=== PATIENT | female | born 1960 | race Caucasian/White ===

== ENCOUNTER 2022-05-22 20:14 | Emergency (ER) | payer OTHER, SELFPAY ==
--- NOTE | ~2022-05-22 | XR_ITS ---
EXAMINATION: XR CHEST CLINICAL INFORMATION: Recent Covid COMPARISON: None TECHNIQUE: Frontal view of the chest was obtained. FINDINGS: Normal appearance of the cardiomediastinal structures. No effusions or pneumothoraces. No focal pulmonary consolidation is identified. A normal pattern of pulmonary vasculature is visualized. Making allowances for overlying rib opacities and possible costochondral calcifications, no definitive areas of groundglass opacity or consolidation noted within the lungs. No displaced rib fractures visualized. XR/XR chest 1V IMPRESSION: *No acute cardiopulmonary abnormalities identified. If clinical concern is present regarding active Covid pneumonia, consider further evaluation with short-term follow-up radiographs or CT of the thorax.
[2022-05-22 20:33] VITALS: BP 162/84; BP 164/91; PULSE 72; PULSE 80; RESP 16; O2SAT 97; O2SAT 98; BMI 22.9
--- NOTE | 2022-05-22 20:39 | ECG_ITS ---
Test Reason : CHEST PAIN Blood Pressure : / mmHG Vent. Rate : 071 BPM Atrial Rate : 071 BPM P-R Int : 158 ms QRS Dur : 100 ms QT Int : 412 ms P-R-T Axes : 060 041 024 degrees QTc Int : 447 ms Normal sinus rhythm RSR' or QR pattern in V1 suggests right ventricular conduction delay ST & T wave abnormality, consider anterior ischemia Abnormal ECG No previous ECGs available Referred By: Edmund Gant Electronically Signed By:ERICA HAND MD
--- NOTE | 2022-05-22 20:42 | ED_ITS ---
HPI - Chest Pain General Chief Complaint: Chest Pain Stated Complaint: chest pain v tack Time Seen by Provider: 05/22/22 20:34 Source: patient History of Present Illness HPI narrative: This is a 62-year-old female who smokes a pack of cigarettes per day, who had C OVID about a week ago head the patient did have some cough from that time as well as fever. She has had some persistent cough and recently was put on prednisone and a Z-Arnaud. Today the patient had some spasms in her lower back, as well as pain in her chest, nonradiating. The chest pain is gone now. She denies any usual shortness of breath, nausea, sweats. She denies any history of coronary artery disease. She denies exertional chest pain. Denies any pain or swelling in her legs. She denies abdominal pain. Patient was brought in by ambulance EMS stated they thought they saw a brief run of V-tach however they did not capture strip and there is no objective evidence of this. The patient later noted that the pain began around 18:30 and lasted only about 5 minutes but came and went over course of about 45 minutes. Related Data Allergies Allergy/AdvReac Type Severity Reaction Status Date / Time Unable to Assess Allergy Verified 05/22/22 20:50 Review of Systems Review of Systems: Yes all other systems are reviewed and are negative Constitutional: Constitutional: Reports as per HPI and Denies fever(s) Eyes: Eyes: Reports as per HPI and Reports no additional eye complaints ENT: Reports system reviewed and no additional complaints, except as documented, Reports as per HPI, Denies nasal congestion, Denies nasal discharge and Denies sore throat Cardiovascular: Cardiovascular: Reports as per HPI, Reports chest pain and Denies dyspnea Respiratory: Respiratory: Reports as per HPI, Reports cough and Denies dyspnea Gastrointestinal: Gastrointestinal: Reports as per HPI, Denies abdominal pain, Denies diarrhea and Denies vomiting Genitourinary: Genitourinary: Reports as per HPI, Denies hematuria, Denies urinary frequency and Denies dysuria Musculoskeletal: Musculoskeletal: Reports no additional musculoskeletal complaints, Reports back pain and Denies numbness Integumentary/Breasts: Skin/Breast: Reports as per HPI and Denies rash Neurologic: Reports as per HPI, Denies focal weakness and Denies numbness Psychiatric: Psychiatric: Reports no additional psychiatric complaints and Reports as per HPI Endocrine: Endocrine: Reports no additional endocrine complaints and Reports as per HPI Hematologic/Lymphatic: Hematologic/Lymphatic: Reports no additional hematologic/lymphatic complaints, Reports as per HPI and Reports other (No peripheral edema) [facility] Social History Social History Patient Tobacco Use Status: Current everyday Tobacco user Use of substances other than those prescribed or required for medical reasons: No Advance Directives: No Advance Directives Information Provided: No Physical Exam Vital Signs: Vital Signs: Last Vital Signs Temp 97.7 F 05/22/22 22:30 Pulse 70 05/22/22 22:30 Resp 18 05/22/22 22:30 BP 152/83 H 05/22/22 22:30 Pulse Ox 98 05/22/22 22:30 O2 Del Method 05/22/22 22:30 BMI result Body Mass Index 22.9 Const: Other: PERRLA Conj [place] Mucous membranes moist Throat clear Neck supple Lungs CTA Heart RRR no murmurs rubs or gallops Abd soft, non tender, non distended Back no focal spinal tenderness, no soft tissue tenderness to the lumbar back Extremities no pitting edema Neuro alert and oriented x 3, non focal Course Course Course Narrative: Patient with self-limited chest pain, off and on for 45 minutes. Patient is on Zithromax and prednisone having had COVID about a week ago and having had a recent cough. Chest x-ray is unremarkable. EKG showed nonspecific changes, troponin x2 are negative. Patient does have risk factors but pain seems unlikely to be cardiac in etiology. Patient has been pain-free in the ED. Patient is safe for outpatient follow-up MDM - Chest Pain Lab Data Attestation: I reviewed the patient's lab results. Result diagrams: 05/22/22 21:16 05/22/22 21:16 Labs: Lab Results 05/22/22 05/22/22 05/22/22 Range/Units 21:16 21:16 21:16 WBC 15.4 H (4.8-10.8) X10*3/uL RBC 4.39 (4.20-5.50) X10*6/uL Hgb 13.2 (12.0-16.0) g/dl Hct 38.5 (37.0-47.0) % MCV 87.7 (80.0-98.0) fL MCH 30.1 (27.0-33.0) pg MCHC 34.3 (31.0-35.0) g/dl RDW 12.8 (11.0-16.0) % Plt Count 264 (160-400) X10*3/uL MPV 8.9 L (9.4-12.3) fL Immature Gran % (Auto) 0.7 H (0.0-0.4) % Neut % (Auto) 74.0 H (45-73) % Lymph % (Auto) 17.3 L (20-40) % [place] % (Auto) 7.2 (2-11) % Eos % (Auto) 0.5 (0-4) % Baso % (Auto) 0.3 (0-2) % Lymph # (Auto) 2.7 (1.2-4.9) X10*3/uL [place] # (Auto) 1.1 (0.1-1.2) X10*3/uL Eos # (Auto) 0.1 (0.0-0.4) X10*3/uL Baso # (Auto) 0.0 (0.0-0.2) X10*3/uL Abs Immat Gran (auto) 0.11 H (0.00-0.03) X10*3/uL Absolute Neuts (auto) 11.4 H (2.0-8.3) x10*3/uL Absolute Nucleated RBC 0.000 (0.0-0.012) X10*3/uL Nucleated RBC % (auto) 0.0 (0.0-0.2) /100WBC Sodium 138 (135-145) mmol/L Potassium 3.3 (3.3-5.1) mmol/L Chloride 103 (96-108) mmol/L Carbon Dioxide 26 (22-29) mmol/L Anion Gap 12 (12-20) BUN 11 (9-16) mg/dL Creatinine 0.68 (0.5-1.4) mg/dL Estim Creat Clear Calc 78.1 Estimated GFR > 60 Random Glucose 131 H (60-115) mg/dL Calcium 9.7 (8.4-10.2) mg/dL Total Bilirubin 0.4 (0.0-1.0) mg/dL AST 12 (5-31) U/L ALT 14 (0-31) U/L Alkaline Phosphatase 63 (39-117) U/L Troponin I High Sens 3.6 (<3.5-17.0) ng/L Total Protein 6.3 L (6.5-8.0) g/dL Albumin 4.1 (3.5-5.0) g/dL 05/22/22 Range/Units 22:41 WBC (4.8-10.8) X10*3/uL RBC (4.20-5.50) X10*6/uL Hgb (12.0-16.0) g/dl Hct (37.0-47.0) % MCV (80.0-98.0) fL MCH (27.0-33.0) pg MCHC (31.0-35.0) g/dl RDW (11.0-16.0) % Plt Count (160-400) X10*3/uL MPV (9.4-12.3) fL Immature Gran % (Auto) (0.0-0.4) % Neut % (Auto) (45-73) % Lymph % (Auto) (20-40) % [place] % (Auto) (2-11) % Eos % (Auto) (0-4) % Baso % (Auto) (0-2) % Lymph # (Auto) (1.2-4.9) X10*3/uL [place] # (Auto) (0.1-1.2) X10*3/uL Eos # (Auto) (0.0-0.4) X10*3/uL Baso # (Auto) (0.0-0.2) X10*3/uL Abs Immat Gran (auto) (0.00-0.03) X10*3/uL Absolute Neuts (auto) (2.0-8.3) x10*3/uL Absolute Nucleated RBC (0.0-0.012) X10*3/uL Nucleated RBC % (auto) (0.0-0.2) /100WBC Sodium (135-145) mmol/L Potassium (3.3-5.1) mmol/L Chloride (96-108) mmol/L Carbon Dioxide (22-29) mmol/L Anion Gap (12-20) BUN (9-16) mg/dL Creatinine (0.5-1.4) mg/dL Estim Creat Clear Calc Estimated GFR Random Glucose (60-115) mg/dL Calcium (8.4-10.2) mg/dL Total Bilirubin (0.0-1.0) mg/dL AST (5-31) U/L ALT (0-31) U/L Alkaline Phosphatase (39-117) U/L Troponin I High Sens 4.5 (<3.5-17.0) ng/L Total Protein (6.5-8.0) g/dL Albumin (3.5-5.0) g/dL Imaging Data Chest x-ray: My impression: IMPRESSION: *No acute cardiopulmonary abnormalities identified. If clinical concern is present regarding active Covid pneumonia, consider further evaluation with short-term follow-up radiographs or CT of the thorax. ECG Data ECG #1: Attestation: I personally reviewed and interpreted this ECG as follows: ECG interpretation date: 05/22/22 ECG interpretation time: 20:54 Interpretation: Sinus rhythm with a rate of 71. RSR pattern in lead V1 V2. T-wave inversion in lead V3 and V4. Slight ST depression in the inferior leads. Scores Heart Score History: -0- slightly suspicious ECG: -1- non specific repolarization disturbance Age: -1- >45 - <65 Risk factory: -1- 1 or 2 risk factors Troponin: -0- < or = normal limit Score: 3 Risk: 1.7% Discharge Plan Discharge Clinical Impression: Atypical chest pain Patient Disposition: Home, Self-Care Instructions: Chest Pain (ED) Additional Instructions: Return for any new or worsened symptoms. Follow-up with your primary care physician. Have your blood pressure rechecked in 1-2 weeks.
[2022-05-22 21:25] LABS: MANUAL DIFF FLAG NO
[2022-05-22 21:27] LABS: Basophils Percent Auto 0.3 % (0-2); Eosinophils Absolute Auto 0.1 X10*3/uL (0.0-0.4); Eosinophils Percent Auto 0.5 % (0-4); Hematocrit 38.5 % (37.0-47.0); Hemoglobin 13.2 g/dl (12.0-16.0); Imm Gran Abs Auto 0.11 X10*3/uL (0.00-0.03); Imm Gran Pct Auto 0.7 % (0.0-0.4); Lymphocytes Absolute Auto 2.7 X10*3/uL (1.2-4.9); Lymphocytes Percent Auto 17.3 % (20-40); Mean Corpuscular HGB Conc 34.3 g/dl (31.0-35.0); Mean Corpuscular Hemoglobin 30.1 pg (27.0-33.0); Mean Corpuscular Volume 87.7 fL (80.0-98.0); Mean Platelet Volume 8.9 fL (9.4-12.3); Monocytes Absolute Auto 1.1 X10*3/uL (0.1-1.2); Monocytes Percent Auto 7.2 % (2-11); Neutrophils Absolute Auto 11.4 x10*3/uL (2.0-8.3); Platelet Count 264 X10*3/uL (160-400); Red Blood Count 4.39 X10*6/uL (4.20-5.50); Red Cell Distribution Width 12.8 % (11.0-16.0); White Blood Count 15.4 X10*3/uL (4.8-10.8)
[2022-05-22 21:50] LABS: Alanine Aminotransferase 14 U/L (0-31); Albumin Level 4.1 g/dL (3.5-5.0); Alkaline Phosphatase 63 U/L (39-117); Anion Gap 12 (12-20); Aspartate Amino Transferase 12 U/L (5-31); Bilirubin Total 0.4 mg/dL (0.0-1.0); Blood Urea Nitrogen 11 mg/dL (9-16); Calcium 9.7 mg/dL (8.4-10.2); Carbon Dioxide 26 mmol/L (22-29); Chloride 103 mmol/L (96-108); Creatinine Clr Calc Pharmacy 78.1; Estimated Glomerular Filt Rate > 60; Glucose Random 131 mg/dL (60-115); Potassium 3.3 mmol/L (3.3-5.1); Sodium 138 mmol/L (135-145); Total Protein 6.3 g/dL (6.5-8.0)
--- OUTSIDE RECORDS SUMMARY | 2022-05-22 21:52 | XMS_ITS | Continuity of Care Document ---
:1960 Author Organization [facility] Adult Address [address] [place] [address]- Care Team Providers Name Role Phone Perry OROZCO, Naz Alexander Primary Care Physician [place] [facility] [place]): 03/24/22 - 03/31/22 [facility] [address] [place] [address]- Encounter Diagnosis Agitated depression (Discharge Diagnosis) - 03/24/22 COPD NOS (Discharge Diagnosis) - 03/24/22 Cocaine abuse in remission (Discharge Diagnosis) - 03/24/22 Hypertension (Discharge Diagnosis) - 03/24/22 Hypercholesterolemia (Discharge Diagnosis) - 03/24/22 Attending Physician: Naz Amador NP Referring Physician: Gagan FUENTES, Octavio Casas Allergies, Adverse Reactions, Alerts Substance Reaction Severity Status Percocet Active Chantix1 Active 1projectile vomiting Immunizations Given and Recorded Vaccine Date Status Refusal Reason SARS-CoV-2 (COVID-19) mRNA BNT-162b2 vac 07/10/21 Recorde d SARS-CoV-2 (COVID-19) mRNA BNT-162b2 vac 12/21/20 Recorde d SARS-CoV-2 (COVID-19) mRNA BNT-162b2 vac 11/30/20 Recorde d SARS-CoV-2 (COVID-19) mRNA BNT-162b2 vac 11/14/20 Recorde d SARS-CoV-2 (COVID-19) mRNA BNT-162b2 vac 10/23/20 Recorde d influenza virus vaccine, inactivated1, 2 05/22/21 Given influenza virus vaccine, inactivated3 04/25/20 Given influenza virus vaccine, inactivated 04/25/19 Recorded influenza virus vaccine, inactivated 04/27/18 Recorded influenza virus vaccine, inactivated4 04/19/17 Given influenza virus vaccine, inactivated 06/22/14 Given influenza virus vaccine, inactivated 04/24/13 Given tetanus/diphtheria/pertussis, acel(Tdap) 04/18/19 Given Pneumococcal Vacc (oldterm)5 04/25/12 Given FluLaval (oldterm)6 04/25/12 Given FluLaval (oldterm)7 06/17/10 Given Tet/Diphth/Acel, Pertussis (oldterm) 11/01/08 Given Influenza Inactive (IM) (oldterm)8 05/18/08 Given 1Early/Late Reason: Early/Late Reason: Other : NOT [id number] Comment: [id number] Comment: [facility]: [id number] EXP: [id number] Comment: [04/19/2017] radha [facility] [phone] Note: VIS [id number] Note: VIS [id number] Note: BIOMEDICAL LELA given by [id number] Note: given in clinic Medications citalopram 20 mg oral tablet 20 mg, 1, tablet, By Mouth, Daily, # 90 tablet, Refills 3, Tot. Refills 3, Maintenance, 08/12/21 16:53:00 EST, Route to Pharmacy Electronically, [facility]/pharm[facility] #[id number], 170, cm, 05/22/21 11:26:00 EDT, Height Start Date: 08/12/21 Status: Orderedezetimibe 10 mg oral tablet 1 tablet, By Mouth, Daily at bedtime, # 90 tablet, 3 Refills, Maintenance, 08/26/21 14:16:00 EST, [facility]/pharmacy #[id number], 170, cm, 05/22/21 11:26:00 EDT, Height Start Date: 08/26/21 Status: Orderedfluticasone 50 mcg/inh nasal spray See Instructions, SPRAY 2 SPRAYS INTO BOTH NOSTRILS DAILY, # 48 mL, 1 Refills, [id number], 90, SPRAY 2 SPRAYS INTO BOTH NOSTRILS DAILY, 170, cm, 12/18/21 7:29:00 EDT, Height Start Date: 02/03/22 Status: Orderedhydrochlorothiazide-losartan 12.5 mg-100 mg oral tablet 1 tablet, By Mouth, Daily, # 30 tablet, 5 Refills, 01/22/22 16:29:00 EDT, [facility]/pharmacy #[id number], 30, 1 tablet By Mouth Daily, 170, cm, 12/18/21 7:29:00 EDT, Height Start Date: 01/22/22 Status: OrderedImodium A-D 2 mg oral tablet See Instructions, 0.5 tablet By mouth daily on Wednesday, Wednesday and Wednesday, # 12 tablet, Refills 3,Tot. Refills 3, Maintenance, 07/20/18 10:28:09 EST, Instructions Replace Required Details, Route to Pharmacy Electronically, [id number]... Start Date: 07/20/18 Status: Orderedlithium 450 mg oral tablet, extended release 1 tablet, By Mouth, Daily, # 90 tablet, 0 Refills, [id number], 170, cm, 12/18/21 7:29:00 EDT, Height Start Date: 03/20/22 Status: OrderedMetoprolol Tartrate 50 mg oral tablet 1 tablet, By Mouth, 2 times a day, # 60 tablet, 5 Refills, [id number], 170, cm, 05/22/21 11:26:00 EDT, Height Start Date: 08/22/21 Status: OrderedrisperiDONE 2 mg oral tablet 1, tablet, By Mouth, Daily at bedtime, # 30 tablet, Refills 2, [facility]ically, [id number], 170, cm, 12/18/21 7:29:00 EDT, Height Start Date: 01/31/22 Status: Ordered Problem List Condition Effective Dates Status Health Status Informant Agitated depression(Confirmed) Active Allergic rhinitis(Confirmed) Active Atrophic vulva(Confirmed) Active Bipolar 2 disorder(Confirmed) Active COPD NOS(Confirmed) Active Dyspnea on exertion(Confirmed) Active Esophageal Reflux(Confirmed) Active History of colon polyps(Confirmed) Active Hypercholesterolemia(Confirmed) Active Hypertension(Confirmed) 05/27/12 Active Alcohol abuse, 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) Active Persistent insomnia(Confirmed) Active Solar lentigo(Confirmed) Active Tobacco abuse(Confirmed) Active Diagnosis Diagnosis Type Effective Health Clinical Informant Dates Status Service Agitated depression Discharge 03/24/22 Diagnosis COPD NOS Discharge 03/24/22 Diagnosis Cocaine abuse in Discharge 03/24/22 remission Diagnosis Hypertension Discharge 03/24/22 Diagnosis Hypercholesterolemia Discharge 03/24/22 Diagnosis Vital Signs Most recent to oldest [Reference Range]: 1 Height 170 cm (03/24/22 6:59 AM) Weight 58.3 kg (03/24/22 6:59 AM) Oxygen Saturation [94-100 %] 98 % (03/24/22 6:59 AM) Pulse Rate [55-90 bpm] 66 bpm (03/24/22 6:59 AM) Body Mass Index [18.5-24.99] 20.17 (03/24/22 6:59 AM) Blood Pressure [90-138/55-84 mm Hg] 115/76 mm Hg (03/24/22 6:59 AM) Temperature [96.8-100.4 DegF] 97.4 DegF (03/24/22 6:59 AM) Blood pressure sites Arm, left (03/24/22 6:59 AM) Temperature Route Temporal (03/24/22 6:59 AM) Weight Obtained Via Standing scale (03/24/22 6:59 AM) Social History Social History Type Response Smoking Status 5-9 cigarettes (between 1/4 to 1/2 pack)/day in last 30 days; Other: 1ppd, 48yrs; entered on: 10/31/20 Sex Care Team PersonnelName: Naz Amador NP Address: [address] [facility] [place], [place] [address]
--- OUTSIDE RECORDS SUMMARY | 2022-05-22 21:52 | XMS_ITS | Continuity of Care Document ---
:1960 Author Organization [facility] [place] [facility] Address [address] [place] [address]- Care Team Providers Name Role Phone Annetta Zambrano NP Primary Care Physician [place] [facility] [place] [facility] [place] [facility] [address] [place] [address]- [facility] Attending Physician: Annetta Zambrano NP Allergies, Adverse Reactions, Alerts Substance Reaction Severity Status Percocet 5/ Active Chantix1 Active 1projectile vomiting Immunizations Given and Recorded Vaccine Date Status Refusal Reason tetanus/diphtheria/pertussis, acel(Tdap) 04/18/19 Given influenza virus vaccine, inactivated1 04/19/17 Given influenza virus vaccine, inactivated 06/22/14 Given influenza virus vaccine, inactivated 04/24/13 Given Pneumococcal Vacc (oldterm)2 04/25/12 Given FluLaval (oldterm)3 04/25/12 Given FluLaval (oldterm)4 06/17/10 Given Tet/Diphth/Acel, Pertussis (oldterm) 11/01/08 Given Influenza Inactive (IM) (oldterm)5 05/18/08 Given 1Result Comment: [04/19/2017] FISH garcia [id number] Note: VIS [id number] Note: VIS [id number] Note: BIOMEDICAL LELA given by [id number] Note: given in clinic Medications atorvastatin 80 mg oral tablet See Instructions, TAKE 1 TABLET BY MOUTH DAILY, # 30 tablet, 5 Refills, Soft Stop, 03/14/20 14:51:00EDT, [id number], 170, cm, 01/15/20 14:32:00 EDT, Height Start Date: 03/14/20 Status: Orderedcitalopram 20 mg oral tablet 20 mg, 1, tablet, By Mouth, Daily, # 90 tablet, Refills 3, Tot. Refills 3, Maintenance, 01/02/20 14:57:00 EDT, [id number], cm, 04/18/19 13:58:00 EDT, Height Start Date: 01/02/20 Status: Orderedfluticasone 50 mcg/inh nasal spray See Instructions, TAKE 2 SPRAYS INTO BOTH NOSTRILS DAILY, # 48 mL, 1 Refills, Soft Stop, 03/25/20 21:36:00 EDT, [facility]/pharmacy #[id number], TAKE 2 SPRAYS INTO BOTH NOSTRILS DAILY, 170, cm, 01/15/20 14:32:00 EDT, Height Start Date: 03/25/20 Status: Orderedhydrochlorothiazide-losartan 12.5 mg-100 mg oral tablet See Instructions, TAKE 1 TABLET BY MOUTH EVERY DAY, # 90 tablet, 3 Refills, Soft Stop, 01/02/20 13:12:00 EDT, [facility]/pharmacy #[id number], TAKE 1 TABLET BY MOUTH EVERY DAY, 170, cm, 04/18/19 13:58:00 EDT, Height Start Date: 01/02/20 Status: OrderedImodium A-D 2 mg oral tablet See Instructions, 0.5 tablet By mouth daily on Wednesday, Wednesday and Wednesday, # 12 tablet, Refills 3,Tot. Refills 3, Maintenance, 07/20/18 10:28:09 EST, Instructions Replace Required Details, Route to Pharmacy Electronically, [id number]... Start Date: 07/20/18 Status: Orderedlithium 450 mg oral tablet, extended release See Instructions, TAKE 1 TABLET BY MOUTH EVERY DAY, # 90 tablet, 1 Refills, Soft Stop, 11/13/19 12:43:00 EDT, [facility]/pharmacy #[id number], 170, cm, 04/18/19 13:58:00 EDT, Height Start Date: 11/13/19 Status: Orderedmelatonin 3 mg oral tablet 3 tablet = 9 mg, By Mouth, Daily at bedtime, PRN for insomnia, # 60 tablet, 0 Refills, Maintenance, 03/19/18 15:42:36, Tablet Start Date: 10/18/17 Status: OrderedMetoprolol Tartrate 50 mg oral tablet 1 tablet = 50 mg, By Mouth, 2 times a day, # 180 tablet, 1 Refills, Soft Stop, 04/01/20 15:13:00 EDT, [facility]/pharmacy #[id number], 170, cm, 01/15/20 14:32:00 EDT, Height Start Date: 04/01/20 Status: OrderedRisperDAL 2 mg oral tablet 2 mg, 1, tablet, By Mouth, Daily at bedtime, # 90 tablet, Refills 3, Tot. Refills 3, Maintenance, 01/02/20 15:00:00 EDT, Route to Pharmacy Electronically, [facility]/pharmacy #[id number], DOSE INCREASE; D/C RISPERIDONE 1 MG, 170, cm, 04/18/19 13:58:00 EDT, Height Start Date: 01/02/20 Status: Ordered Problem List Condition Effective Dates Status Health Status Informant Agitated depression(Confirmed) Active Allergic rhinitis(Confirmed) Active Atrophic vulva(Confirmed) Active Bipolar 2 disorder(Confirmed) Active COPD NOS(Confirmed) Active Cough(Confirmed) Active Esophageal Reflux(Confirmed) Active Hand pain, left(Confirmed) Active History of colon polyps(Confirmed) Active Hypercholesterolemia(Confirmed) Active Hypertension(Confirmed) 05/27/12 Active Soft tissue mass(Confirmed) Active Alcohol abuse, 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) Active Palpitations(Confirmed) Active Annual physical exam(Confirmed) Active Persistent insomnia(Confirmed) Active Sebaceous hyperplasia(Confirmed) Active Sleep trouble(Confirmed) Active Solar lentigo(Confirmed) Active Neck strain(Confirmed) Active Tobacco abuse(Confirmed) Active Viral URI(Confirmed) Active Social History Social History Type Response Smoking Status 10 or more cigarettes (1/2 p ack or more)/day in last 30 days; Other: 1ppd, 48yrs; entered on: 01/15/20 Sex
--- OUTSIDE RECORDS SUMMARY | 2022-05-22 21:52 | XMS_ITS | Continuity of Care Document ---
:1960 Author Organization [facility] Adult Address [address] [place] [address]- Care Team Providers Name Role Phone Nohelia OROZCO, Mirian Ayon Primary Care Physician En[place] [facility] [place] Date(s): 01/02/20 - 01/09/20 [facility] [address] [place] [address]- [facility] Attending Physician: Mirian Pozo NP Allergies, Adverse Reactions, Alerts Substance Reaction Severity Status Percocet 5 Active Immunizations Given and Recorded Vaccine Date Status Refusal Reason tetanus/diphtheria/pertussis, acel(Tdap) 04/18/19 Given influenza virus vaccine, inactivated1 04/19/17 Given influenza virus vaccine, inactivated 06/22/14 Given influenza virus vaccine, inactivated 04/24/13 Given Pneumococcal Vacc (oldterm)2 04/25/12 Given FluLaval (oldterm)3 04/25/12 Given FluLaval (oldterm)4 06/17/10 Given Tet/Diphth/Acel, Pertussis (oldterm) 11/01/08 Given Influenza Inactive (IM) (oldterm)5 05/18/08 Given 1Result Comment: [04/19/2017] radha [facility] [id number] Note: VIS [id number] Note: VIS [id number] Note: BIOMEDICAL LELA given by [email or web address] Note: given in clinic Medications atorvastatin 80 mg oral tablet See Instructions, # 60 tablet, Refills 5 Tot. Refills 5, TAKE 1 TABLET BY MOUTH DAILY, [facility]/pharmacy #[id number] Start Date: 03/16/19 Status: Orderedcitalopram 20 mg oral tablet 20 mg, 1, tablet, By Mouth, Daily, # 90 tablet, Refills 3, Tot. Refills 3, Maintenance, 01/02/20 14:57:00 EDT, Route to Pharmacy Electronically, [facility]/pharmacy #[id number], 170, cm, 04/18/19 13:58:00 EDT, Height Start Date: 01/02/20 Status: Orderedfluticasone 50 mcg/inh nasal spray See Instructions, TAKE 2 SPRAYS INTO BOTH NOSTRILS DAILY, # 48 mL, 1 Refills, Soft Stop, 09/21/19 15:50:00 EST, [facility]/pharmacy #[id number], TAKE 2 SPRAYS INTO BOTH NOSTRILS DAILY, 170, cm, 04/18/19 13:58:00 EDT, Height Start Date: 09/21/19 Status: Orderedhydrochlorothiazide-losartan 12.5 mg-100 mg oral tablet See Instructions, TAKE 1 TABLET BY MOUTH EVERY DAY, # 90 tablet, 3 Refills, Soft Stop, 01/02/20 13:12:00 EDT, [facility]/pharmacy #[id number], TAKE 1 TABLET BY MOUTH EVERY DAY, 170, cm, 04/18/19 13:58:00 EDT, Height Start Date: 01/02/20 Status: OrderedImodium A-D 2 mg oral tablet See Instructions, 0.5 tablet By mouth daily on Wednesday, Wednesday and Wednesday, # 12 tablet, Refills 3,Tot. Refills 3, Maintenance, 07/20/18 10:28:09 EST, Instructions Replace Required Details, Route to Pharmacy Electronically, [id number]... Start Date: 07/20/18 Status: Orderedlithium 450 mg oral tablet, extended release See Instructions, TAKE 1 TABLET BY MOUTH EVERY DAY, # 90 tablet, 1 Refills, Soft Stop, 11/13/19 12:43:00 EDT, [facility]/pharmacy #[id number], 170, cm, 04/18/19 13:58:00 EDT, Height Start Date: 11/13/19 Status: Orderedmelatonin 3 mg oral tablet 3 tablet = 9 mg, By Mouth, Daily at bedtime, PRN for insomnia, # 60 tablet, 0 Refills, Maintenance, 10/18/17 15:42:36, Tablet Start Date: 10/18/17 Status: OrderedMetoprolol Tartrate 50 mg oral tablet See Instructions, TAKE 1 TABLET BY MOUTH TWICE A DAY, # 180 tablet, 0 Refills, Soft Stop, 07/24/19 8:10:00 EST, [facility]/pharmacy #[id number], 170, cm, 04/18/19 13:58:00 EDT, Height Start Date: 07/24/19 Status: OrderedRisperDAL 2 mg oral tablet 2 mg, 1, tablet, By Mouth, Daily at bedtime, # 90 tablet, Refills 3, Tot. Refills 3, Maintenance, 01/02/20 15:00:00 EDT, Route to Pharmacy Electronically, [facility]/pharmacy #[id number], DOSE INCREASE; D/C RISPERIDONE 1 MG, 170, cm, 04/18/19 13:58:00 EDT, Height Start Date: 01/02/20 Status: OrderedSuprep Bowel Prep Kit oral liquid 177 mL, By Mouth, Once, Take the first 6 oz bottle the evening before colonoscopy, and the second 6 oz bottle the morning of colonoscopy., # 354 mL, 0 Refills, Soft Stop, 11/17/18 8:21:41 EDT, 177 mL By Mouth Once,Instr:Take the first 6 oz bottle the... Start Date: 11/17/18 Status: Ordered Problem List Condition Effective Dates Status Health Status Informant Agitated depression(Confirmed) Active Allergic rhinitis(Confirmed) Active Atrophic vulva(Confirmed) Active Bipolar 2 disorder(Confirmed) Active COPD NOS(Confirmed) Active Cough(Confirmed) Active Esophageal Reflux(Confirmed) Active Hand pain, left(Confirmed) Active History of colon polyps(Confirmed) Active Hypercholesterolemia(Confirmed) Active Hypertension(Confirmed) 05/27/12 Active Soft tissue mass(Confirmed) Active Palpitations(Confirmed) Active Annual physical exam(Confirmed) Active Persistent insomnia(Confirmed) Active Sleep trouble(Confirmed) Active Neck strain(Confirmed) Active Tobacco abuse(Confirmed) Active Viral URI(Confirmed) Active Social History Social History Type Response Smoking Status Current every day smoker entered on: 02/21/18 Sex
--- OUTSIDE RECORDS SUMMARY | 2022-05-22 21:52 | XMS_ITS | Continuity of Care Document ---
:1960 Author Organization [facility] Adult Address [address] [place] [address]- Care Team Providers Name Role Phone Annetta Zambrano NP Primary Care Physician Encounter [facility] [place] [place] Date(s): 01/29/21 - 02/28/21 [facility] [address] [place] [address]- Encounter Diagnosis Bipolar 2 disorder (Discharge Diagnosis) - 01/02/20 Sleep trouble (Discharge Diagnosis) - 01/02/20 Attending Physician: Admtr, Sherry Allergies, Adverse Reactions, Alerts Substance Reaction Severity Status Percocet Active Chantix1 Active 1projectile vomiting Immunizations Given and Recorded Vaccine Date Status Refusal Reason influenza virus vaccine, inactivated1 04/25/20 Given influenza virus vaccine, inactivated2 04/19/17 Given influenza virus vaccine, inactivated 06/22/14 Given influenza virus vaccine, inactivated 04/24/13 Given tetanus/diphtheria/pertussis, acel(Tdap) 04/18/19 Given Pneumococcal Vacc (oldterm)3 04/25/12 Given FluLaval (oldterm)4 04/25/12 Given FluLaval (oldterm)5 06/17/10 Given Tet/Diphth/Acel, Pertussis (oldterm) 11/01/08 Given Influenza Inactive (IM) (oldterm)6 05/18/08 Given 1Result Comment: [facility]: [id number] EXP: [id number] Comment: [04/19/2017] FISH garcia [id number] Note: VIS [id number] Note: VIS [id number] Note: BIOMEDICAL LELA given by [email or web address] Note: given in clinic Medications citalopram 20 mg oral tablet 20 mg, 1, tablet, By Mouth, Daily, # 90 tablet, Refills 1, Tot. Refills 1, Maintenance, 11/11/20 16:11:00 EDT, Route to Pharmacy Electronically, [facility]/pharmacy #[id number], 170, cm, 10/31/20 14:37:00 EDT, Height Start Date: 11/11/20 Status: Orderedezetimibe 10 mg oral tablet 1 tablet, By Mouth, Daily at bedtime, # 90 tablet, 1 Refills, Maintenance, 01/24/21 14:36:00 EDT, [facility]/pharmacy #[id number], 170, cm, 11/18/20 7:13:00 EDT, Height Start Date: 01/24/21 Status: Orderedfluticasone 50 mcg/inh nasal spray See Instructions, TAKE 2 SPRAYS INTO BOTH NOSTRILS DAILY, # 48 mL, 1 Refills, Maintenance, [facility] [id number], 90, TAKE 2 SPRAYS INTO BOTH NOSTRILS DAILY, 170, cm, 11/18/20 7:13:00 EDT, Height Start Date: 01/26/21 Status: Orderedhydrochlorothiazide-losartan 12.5 mg-100 mg oral tablet See Instructions, TAKE 1 TABLET BY MOUTH EVERY DAY, # 90 tablet, 1 Refills, Soft Stop, 11/11/20 16:11:00 EDT, [facility]/pharmacy #[id number], TAKE 1 TABLET BY MOUTH EVERY DAY, 170, cm, 10/31/20 14:37:00 EDT, Height Start Date: 11/11/20 Status: OrderedImodium A-D 2 mg oral tablet See Instructions, 0.5 tablet By mouth daily on Wednesday, Wednesday and Wednesday, # 12 tablet, Refills 3,Tot. Refills 3, Maintenance, 07/20/18 10:28:09 EST, Instructions Replace Required Details, Route to Pharmacy Electronically, [id number]... Start Date: 07/20/18 Status: Orderedlithium 450 mg oral tablet, extended release 1 tablet, By Mouth, Daily, # 90 tablet, 1 Refills, Maintenance, 11/12/20 14:00:00 EDT, [facility]/pharmacy #[id number], 170, cm, 10/31/20 14:37:00 EDT, Height Start Date: 11/12/20 Status: OrderedMetoprolol Tartrate 50 mg oral tablet 1 tablet = 50 mg, By Mouth, 2 times a day, # 180 tablet, 1 Refills, Soft Stop, 07/29/20 10:27:00 EST, [facility]/pharmacy #[id number], 170, cm, 06/14/20 6:52:00 EST, Height Start Date: 07/29/20 Status: OrderedrisperiDONE 2 mg oral tablet 2 mg, 1, tablet, By Mouth, Daily at bedtime, TAKE 1 TABLET BY MOUTH EVERYDAY AT BEDTIME, # 90 tablet, Refills 1, Tot. Refills 1, Maintenance, 11/12/20 14:00:00 EDT, Route to Pharmacy Electronically, [facility]/pharmacy #[id number], Partial fill upon patient reques... Start Date: 11/12/20 Status: Ordered Problem List Condition Effective Dates Status Health Status Informant Agitated depression(Confirmed) Active Allergic rhinitis(Confirmed) Active Atrophic vulva(Confirmed) Active Bipolar 2 disorder(Confirmed) Active COPD NOS(Confirmed) Active Cough(Confirmed) Active Leg cramps(Confirmed) Active Dyspnea on exertion(Confirmed) Active Esophageal Reflux(Confirmed) Active Hand pain, left(Confirmed) Active History of colon polyps(Confirmed) Active Hypercholesterolemia(Confirmed) Active Hypertension(Confirmed) 05/27/12 Active Soft tissue mass(Confirmed) Active Alcohol abuse, 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) Active Onychomycosis(Confirmed) Active Palpitations(Confirmed) Active Annual physical exam(Confirmed) Active Persistent insomnia(Confirmed) Active Sebaceous hyperplasia(Confirmed) Active Sleep trouble(Confirmed) Active Solar lentigo(Confirmed) Active Neck strain(Confirmed) Active Tobacco abuse(Confirmed) Active Viral URI(Confirmed) Active Diagnosis Diagnosis Type Effective Dates Health Status Clinical In formant Service Bipolar 2 Discharge 01/02/20 disorder Diagnosis Sleep trouble Discharge 01/02/20 Diagnosis Vital Signs Most recent to oldest [Reference Range]: 1 Height 168.00 cm (05/07/10 2:43 PM) Weight 62.200 kg (05/07/10 2:43 PM) Oxygen Saturation [94-100 %] 98 % (05/07/10 2:43 PM) Pulse Rate [55-90 bpm] 92 bpm *H* (05/07/10 2:43 PM) Body Mass Index [18.50-24.99] 22.04 (05/07/10 2:43 PM) Blood Pressure [90-138/55-84 mm Hg] 148/94 mm Hg *H* (05/07/10 2:43 PM) Respiratory Rate [16-30 br/min] 16 br/min (05/07/10 2:43 PM) Temperature [96.8-100.4 DegF] 97.6 DegF (05/07/10 2:43 PM) Mode of Delivery (Oxygen) Room air (05/07/10 2:43 PM) Blood pressure sites Arm, left (05/07/10 2:43 PM) Temperature Route Temporal (05/07/10 2:43 PM) Social History Social History Type Response Smoking Status 5-9 cigarettes (between 1/4 to 1/2 pack)/day in last 30 days; Other: 1ppd, 48yrs; entered on: 10/31/20 Sex
--- OUTSIDE RECORDS SUMMARY | 2022-05-22 21:52 | XMS_ITS | Continuity of Care Document ---
:1960 Author Organization [facility] Adult Address [address] [place] [address]- Care Team Providers Name Role Phone Annetta Zambrano NP Primary Care Physician Encounter [facility] [place] Date(s): 01/29/21 - 02/05/21 [facility] [address] [place] [address]- Encounter Diagnosis COPD NOS (Discharge Diagnosis) - 01/30/21 Dyspnea on exertion (Discharge Diagnosis) - 01/30/21 Hypertension (Discharge Diagnosis) - 01/30/21 Leg cramps (Discharge Diagnosis) - 01/30/21 Hypercholesterolemia (Discharge Diagnosis) - 01/30/21 Tobacco abuse (Discharge Diagnosis) - 01/30/21 Cocaine abuse in remission (Discharge Diagnosis) - 01/30/21 Onychomycosis (Discharge Diagnosis) - 01/30/21 Agitated depression (Discharge Diagnosis) - 01/30/21 Attending Physician: Not on Staff, Attending MD Referring Physician: Annetta Zambrano NP Allergies, Adverse Reactions, Alerts Substance Reaction Severity Status Percocet 5/325 Active Chantix1 Active 1projectile vomiting Immunizations Given [...] Inactive (IM) (oldterm)6 05/18/08 Given 1Result Comment: [facility]: [id number] EXP: [id number] Comment: [04/19/2017] radha [facility] [id number] Note: VIS [id number] Note: VIS [id number] Note: BIOMEDICAL LELA given by [id number] Note: given in clinic Medications citalopram 20 mg oral tablet 20 mg, 1, tablet, By Mouth, Daily, # 90 tablet, Refills 1, Tot. Refills 1, Maintenance, 11/11/20 16:11:00 EDT, Route to Pharmacy Electronically, [facility]/pharmacy #[id number], 170, cm, 10/31/20 14:37:00 EDT, Height Start Date: 11/11/20 Status: Orderedezetimibe 10 mg oral tablet 1 tablet, By Mouth, Daily at bedtime, # 90 tablet, 1 Refills, Maintenance, 01/24/21 14:36:00 EDT, [facility]/pharmacy #[id number], 170, cm, 11/18/20 7:13:00 EDT, Height Start Date: 01/24/21 Status: Orderedfluticasone 50 mcg/inh nasal spray See Instructions, TAKE 2 SPRAYS INTO BOTH NOSTRILS DAILY, # 48 mL, 1 Refills, Maintenance, [facility] [id number], 90, TAKE 2 SPRAYS INTO BOTH NOSTRILS DAILY, 170, cm, 11/18/20 7:13:00 EDT, Height Start Date: 01/26/21 Status: Orderedhydrochlorothiazide-losartan 12.5 mg-100 mg oral tablet See Instructions, TAKE 1 TABLET BY MOUTH EVERY DAY, # 90 tablet, 1 Refills, Soft Stop, 11/11/20 16:11:00 EDT, [facility]/pharmacy #[id number], TAKE 1 TABLET BY MOUTH EVERY DAY, 170, cm, 10/31/20 14:37:00 EDT, Height Start Date: 11/11/20 Status: OrderedImodium A-D 2 mg oral tablet See Instructions, 0.5 tablet By mouth daily on Wednesday, Wednesday and Wednesday, # 12 tablet, Refills 3,Tot. Refills 3, Maintenance, 07/20/18 10:28:09 EST, Instructions Replace Required Details, Route to Pharmacy Electronically, [id number]... Start Date: 07/20/18 Status: Orderedlithium 450 mg oral tablet, extended release 1 tablet, By Mouth, Daily, # 90 tablet, 1 Refills, Maintenance, 11/12/20 14:00:00 EDT, [facility]/pharmacy #[id number], 170, cm, 10/31/20 14:37:00 EDT, Height Start Date: 11/12/20 Status: OrderedMetoprolol Tartrate 50 mg oral tablet 1 tablet = 50 mg, By Mouth, 2 times a day, # 180 tablet, 1 Refills, Soft Stop, 07/29/20 10:27:00 EST, [facility]/pharmacy #[id number], 170, cm, 06/14/20 6:52:00 EST, Height Start Date: 07/29/20 Status: OrderedrisperiDONE 2 mg oral tablet 2 mg, 1, tablet, By Mouth, Daily at bedtime, TAKE 1 TABLET BY MOUTH EVERYDAY AT BEDTIME, # 90 tablet, Refills 1, Tot. Refills 1, Maintenance, 11/12/20 14:00:00 EDT, Route to Pharmacy Electronically, [facility]/pharmacy #[id number], Partial fill upon patient reques... Start [...] Viral URI(Confirmed) Active Diagnosis Diagnosis Type Effective Health Clinical Informant Dates Status Service COPD NOS Discharge 01/30/21 Diagnosis Dyspnea on exertion Discharge 01/30/21 Diagnosis Hypertension Discharge 01/30/21 Diagnosis Leg cramps Discharge 01/30/21 Diagnosis Hypercholesterolemia Discharge 01/30/21 Diagnosis Tobacco abuse Discharge 01/30/21 Diagnosis Cocaine abuse in Discharge 01/30/21 remission Diagnosis Onychomycosis Discharge 01/30/21 Diagnosis Agitated depression Discharge 01/30/21 Diagnosis Vital Signs Most recent to oldest [Reference Range]: 1 Height 170 cm (01/29/21 10:12 AM) Weight 62.2 kg (01/29/21 10:12 AM) Oxygen Saturation [94-100 %] 98 % (01/29/21 10:12 AM) Pulse Rate [55-90 bpm] 92 bpm *H* (01/29/21 10:12 AM) Body Mass Index [18.5-24.99] 21.52 (01/29/21 10:12 AM) Blood Pressure [90-138/55-84 mm Hg] 108/72 mm Hg (01/29/21 10:12 AM) Temperature [96.8-100.4 DegF] 98.3 DegF (01/29/21 10:12 AM) Blood pressure sites Arm, right (01/29/21 10:12 AM) Temperature Route Oral (01/29/21 10:12 AM) Weight Obtained Via Standing scale (01/29/21 10:12 AM) Social History Social History Type Response Smoking Status 5-9 cigarettes (between 1/4 to 1/2 pack)/day in last 30 days; Other: 1ppd, 48yrs; entered on: 10/31/20 Sex
--- OUTSIDE RECORDS SUMMARY | 2022-05-22 21:52 | XMS_ITS | Continuity of Care Document ---
:1960 Author Organization [facility] Adult Address [address] [place] [address]- Care Team Providers Name Role Phone Annetta Zambrano NP Primary Care Physician Encounter [facility] [place] Date(s): 04/25/20 - 05/02/20 [facility] [address] [place] [address]- [facility] Encounter Diagnosis Agitated depression (Discharge Diagnosis) - 04/25/20 Esophageal Reflux (Discharge Diagnosis) - 04/25/20 Sleep trouble (Discharge Diagnosis) - 04/25/20 Attending Physician: Gagan FUENTES, Octavio Casas Allergies, Adverse Reactions, Alerts Substance Reaction Severity Status Percocet 5 Active Chantix1 Active 1projectile vomiting Immunizations Given [...] Inactive (IM) (oldterm)6 05/18/08 Given 1Result Comment: [facility]: [id number] EXP: [id number] Comment: [04/19/2017] FISH garcia [id number] Note: VIS [id number] Note: VIS [id number] Note: BIOMEDICAL LELA given by [id number] Note: given in clinic Medications atorvastatin 80 mg oral tablet See Instructions, TAKE 1 TABLET BY MOUTH DAILY, # 30 tablet, 5 Refills, Soft Stop, 03/14/20 14:51:00EDT, [facility]/pharmacy #[id number], 170, cm, 01/15/20 14:32:00 EDT, Height Start Date: 03/14/20 Status: Orderedcitalopram 20 mg oral tablet 20 mg, 1, tablet, By Mouth, Daily, # 90 tablet, Refills 3, Tot. Refills 3, Maintenance, 01/02/20 14:57:00 EDT, Route to Pharmacy Electronically, [facility]/pharmacy #[id number], 170, [...] Replace Required Details, Route to Pharmacy Electronically, [id number]... Start Date: 07/20/18 Status: Orderedlithium 450 mg [...] 01/02/20 15:00:00 EDT, [id number]; D/C RISPERIDONE 1 MG, [...] Active Diagnosis Diagnosis Type Effective Dates Health Clinical Infor mant Status Service Agitated Discharge 04/25/20 depression Diagnosis Esophageal Reflux Discharge 04/25/20 Diagnosis Sleep trouble Discharge 04/25/20 Diagnosis Vital Signs Most recent to oldest [Reference Range]: 1 Height 170 cm (04/25/20 2:26 PM) Weight 60.7 kg (04/25/20 2:26 PM) Oxygen Saturation [94-100 %] 98 % (04/25/20 2:26 PM) Pulse Rate [55-90 bpm] 74 bpm (04/25/20 2:26 PM) Body Mass Index [18.5-24.99] 21 (04/25/20 2:26 PM) Blood Pressure [90-138/55-84 mm Hg] 102/56 mm Hg (04/25/20 2:26 PM) Respiratory Rate [16-30 br/min] 14 br/min *L* (04/25/20 2:26 PM) Temperature [96.8-100.4 DegF] 98.1 DegF (04/25/20 2:26 PM) Mode of Delivery (Oxygen) Room air (04/25/20 2:26 PM) Blood pressure sites Arm, right (04/25/20 2:26 PM) Temperature Route Oral (04/25/20 2:26 PM) Weight Obtained Via Standing scale (04/25/20 2:26 PM) Social History Social History Type Response Smoking Status 10 or more cigarettes (1/2 p ack or more)/day in last 30 days; Other: 1ppd, 48yrs; entered on: 01/15/20 Sex
--- OUTSIDE RECORDS SUMMARY | 2022-05-22 21:53 | XMS_ITS | Continuity of Care Document ---
:1960 Author Organization [facility] Adult Address [address] [place] [address]- Care Team Providers Name Role Phone Annetta Zambrano NP Primary Care Physician Encounter [facility] [place] Date(s): 04/25/20 - 05/25/20 [facility] [address] [place] [address]- [facility] Encounter Diagnosis Bipolar 2 disorder (Discharge Diagnosis) [...] Inactive (IM) (oldterm)6 05/18/08 Given 1Result [id number] EXP: [id number] Comment: [04/19/2017] FISH garcia [phone] Note: VIS [id number] Note: VIS [id number] Note: BIOMEDICAL LELA given by [id number] Note: given in clinic Medications atorvastatin 80 mg oral tablet See Instructions, TAKE 1 TABLET BY MOUTH DAILY, # 30 tablet, 5 Refills, Soft Stop, 03/14/20 14:51:00EDT, [facility]/pharmacy #[id number], 170, cm, 01/15/20 14:32:00 EDT, Height Start Date: 03/14/20 Status: Orderedcitalopram 20 mg oral tablet 20 mg, 1, tablet, By Mouth, Daily, # 90 tablet, Refills 3, Tot. Refills 3, Maintenance, 01/02/20 14:57:00 EDT, Route to Pharmacy Electronically, [facility]/pharmacy #[id number], 170, cm, 04/18/19 13:58:00 EDT, Height Start Date: 01/02/20 Status: Orderedfluticasone 50 mcg/inh nasal spray See Instructions, TAKE 2 SPRAYS INTO BOTH NOSTRILS DAILY, # 48 mL, 1 Refills, Soft Stop, 03/25/20 21:36:00 EDT, [facility]/pharmacy #[id number], TAKE 2 SPRAYS INTO BOTH NOSTRILS DAILY, 170, cm, 01/15/20 14:32:00 EDT, Height Start Date: 03/25/20 Status: Orderedhydrochlorothiazide-losartan 12.5 mg-100 mg oral tablet See Instructions, TAKE 1 TABLET BY MOUTH EVERY DAY, # 90 tablet, 3 Refills, Soft Stop, 01/02/20 13:12:00 EDT, [facility]/pharmacy #[id number], TAKE 1 TABLET BY MOUTH EVERY DAY, 170, cm, 04/18/19 13:58:00 EDT, Height Start Date: 01/02/20 Status: OrderedImodium A-D 2 mg oral tablet See Instructions, 0.5 tablet By mouth daily on Wednesday, Wednesday and Wednesday, # 12 tablet, Refills 3,Tot. Refills 3, Maintenance, 07/20/18 10:28:09 EST, Instructions Replace Required Details, Route to Pharmacy Electronically, [id number]... Start Date: 07/20/18 Status: Orderedlithium 450 mg oral tablet, extended release 1 tablet, By Mouth, Daily, # 90 tablet, 1 Refills, Maintenance, 05/10/20 9:15:00 EDT, [facility] STORE [id number], 170, cm, 04/25/20 14:26:00 EDT, Height Start Date: 05/10/20 Status: Orderedmelatonin 3 mg oral tablet 3 tablet = 9 mg, By Mouth, Daily at bedtime, PRN for insomnia, # 60 tablet, 0 Refills, Maintenance, 10/18/17 15:42:36, Tablet Start Date: 10/18/17 Status: OrderedMetoprolol Tartrate 50 mg oral tablet 1 tablet = 50 mg, By Mouth, 2 times a day, # 180 tablet, 1 Refills, Soft Stop, 04/01/20 15:13:00 EDT, [facility]/pharmacy #[id number], 170, cm, 01/15/20 14:32:00 EDT, Height Start Date: 04/01/20 Status: OrderedRisperDAL 2 mg oral tablet 2 mg, 1, tablet, By Mouth, Daily at bedtime, # 90 tablet, Refills 3, Tot. Refills 3, Maintenance, 01/02/20 15:00:00 EDT, Route to Pharmacy Electronically, [facility]/pharmacy #[id number], DOSE INCREASE; D/C RISPERIDONE 1 MG, [...]
--- OUTSIDE RECORDS SUMMARY | 2022-05-22 21:53 | XMS_ITS | Continuity of Care Document ---
:1960 Author Organization [facility] Adult Address [address] [place] [address]- Care Team Providers Name Role Phone Fidel Umana MD Primary Care Physician Encounter [facility] Date(s): 06/02/21 - 07/02/21 [facility] [address] [place] [address]- Allergies, Adverse Reactions, Alerts Substance Reaction Severity Status Percocet 5/ Active Chantix1 Active 1projectile vomiting Immunizations Given and Recorded Vaccine Date Status Refusal Reason influenza virus vaccine, inactivated1, 2 05/22/21 Given influenza virus vaccine, inactivated3 04/25/20 Given influenza virus vaccine, inactivated 04/25/19 Recorded influenza virus vaccine, inactivated 04/27/18 Recorded influenza virus vaccine, inactivated4 04/19/17 Given influenza virus vaccine, inactivated 06/22/14 Given influenza virus vaccine, inactivated 04/24/13 Given SARS-CoV-2 (COVID-19) mRNA BNT-162b2 vac 11/14/20 Recorde d SARS-CoV-2 (COVID-19) mRNA BNT-162b2 vac 10/23/20 Recorde d tetanus/diphtheria/pertussis, acel(Tdap) 04/18/19 Given Pneumococcal Vacc (oldterm)5 04/25/12 Given FluLaval (oldterm)6 04/25/12 Given FluLaval (oldterm)7 06/17/10 Given Tet/Diphth/Acel, Pertussis (oldterm) 11/01/08 Given Influenza Inactive (IM) (oldterm)8 05/18/08 Given 1Early/Late Reason: Early/Late Reason: Other : NOT [id number] Comment: [id number] Comment: [facility]: [id number] EXP: [id number] Comment: [04/19/2017] radha [facility] [phone] Note: VIS [id number] Note: VIS [id number] Note: BIOMEDICAL LELA given by [id number] Note: given in clinic Medications citalopram 20 mg oral tablet 20 mg, 1, tablet, By Mouth, Daily, # 30 tablet, Refills 1, Tot. Refills 1, Maintenance, 05/20/21 9:17:00 EDT, Route to Pharmacy Electronically, [facility]/pharmacy #[id number], 170, cm, 01/29/21 10:12:00 EDT, Height Start Date: 05/20/21 Status: Orderedezetimibe 10 mg oral tablet 1 tablet, By Mouth, Daily at bedtime, # 30 tablet, 1 Refills, Maintenance, 05/20/21 9:20:00 EDT, [facility]/pharmacy #[id number], 170, cm, 01/29/21 10:12:00 EDT, Height Start Date: 05/20/21 Status: Orderedfluticasone 50 mcg/inh nasal spray See Instructions, TAKE 2 SPRAYS INTO BOTH NOSTRILS DAILY, # 48 mL, 1 Refills, Maintenance, [facility] [id number], 90, TAKE 2 SPRAYS INTO BOTH NOSTRILS DAILY, 170, cm, 11/18/20 7:13:00 EDT, Height Start Date: 01/26/21 Status: Orderedhydrochlorothiazide-losartan 12.5 mg-100 mg oral tablet See Instructions, TAKE 1 TABLET BY MOUTH EVERY DAY, # 30 tablet, 1 Refills, Soft Stop, 05/20/21 9:19:00 EDT, [facility]/pharmacy #[id number], TAKE 1 TABLET BY MOUTH EVERY DAY, 170, cm, 01/29/21 10:12:00 EDT, Height Start Date: 05/20/21 Status: OrderedImodium A-D 2 mg oral tablet See Instructions, 0.5 tablet By mouth daily on Wednesday, Wednesday and Wednesday, # 12 tablet, Refills 3,Tot. Refills 3, Maintenance, 07/20/18 10:28:09 EST, Instructions Replace Required Details, Route to Pharmacy Electronically, [id number]... Start Date: 07/20/18 Status: Orderedlithium 450 mg oral tablet, extended release 1 tablet, By Mouth, Daily, # 30 tablet, 1 Refills, Maintenance, 05/20/21 9:17:00 EDT, [facility]/pharmacy #[id number], 170, cm, 01/29/21 10:12:00 EDT, Height Start Date: 05/20/21 Status: OrderedMetoprolol Tartrate 50 mg oral tablet 1 tablet = 50 mg, By Mouth, 2 times a day, # 60 tablet, 1 Refills, Soft Stop, 05/20/21 9:17:00 EDT, [facility]/pharmacy [id number], 170, cm, 01/29/21 10:12:00 EDT, Height Start Date: 05/20/21 Status: OrderedrisperiDONE 2 mg oral tablet 2 mg, 1, tablet, By Mouth, Daily at bedtime, TAKE 1 TABLET BY MOUTH EVERYDAY AT BEDTIME, # 30 tablet, Refills 1, Tot. Refills 1, Maintenance, 05/20/21 9:19:00 EDT, Route to Pharmacy Electronically, [facility]/pharmacy #[id number], Partial fill upon patient request... Start Date: 05/20/21 Status: Ordered Problem List Condition Effective Dates [...]
--- OUTSIDE RECORDS SUMMARY | 2022-05-22 21:53 | XMS_ITS | Continuity of Care Document ---
:1960 Author Organization [facility] Adult Address [address] [place] [address]- Care Team Providers Name Role Phone Annetta Zambrano NP Primary Care Physician Encounter [facility] Date(s): 01/15/20 - 01/22/20 [facility] [address] [place] [address] [facility] Encounter Diagnosis Well adult exam (Discharge Diagnosis) - 01/15/20 Agitated depression (Discharge Diagnosis) - 01/15/20 COPD NOS (Discharge Diagnosis) - 01/15/20 Hypertension (Discharge Diagnosis) - 01/15/20 Hypercholesterolemia (Discharge Diagnosis) - 01/15/20 Tobacco abuse (Discharge Diagnosis) - 01/15/20 Persistent insomnia (Discharge Diagnosis) - 01/15/20 Cocaine abuse in remission (Discharge Diagnosis) - 01/15/20 Alcohol abuse, in remission (Discharge Diagnosis) - 01/15/20 Attending Physician: Annetta Zambrano NP Allergies, Adverse [...] (IM) (oldterm)5 05/18/08 Given 1Result Comment: [04/19/2017] quad, [facility] [id number] Note: VIS [id number] Note: VIS [id number] Note: BIOMEDICAL LELA given by [id number] Note: given in clinic Medications atorvastatin 80 mg oral tablet See Instructions, # 60 tablet, Refills 5 Tot. Refills 5, TAKE 1 TABLET BY MOUTH DAILY, [facility]/pharmacy #[id number] Start Date: 03/16/19 Status: Orderedcitalopram 20 mg oral tablet 20 mg, 1, tablet, By Mouth, Daily, # 90 tablet, Refills 3, Tot. Refills 3, Maintenance, 01/02/20 14:57:00 EDT, Route to Pharmacy Electronically, [facility]/pharmacy #[id number], 170, cm, 04/18/19 13:58:00 EDT, Height Start Date: 01/02/20 Status: Orderedfluticasone 50 mcg/inh nasal spray See Instructions, TAKE 2 SPRAYS INTO BOTH NOSTRILS DAILY, # 48 mL, 1 Refills, Soft Stop, 09/21/19 15:50:00 EST, [facility]/pharmacy #[id number], TAKE 2 SPRAYS INTO BOTH NOSTRILS DAILY, 170, cm, 04/18/19 13:58:00 EDT, Height Start Date: 09/21/19 Status: Orderedhydrochlorothiazide-losartan 12.5 mg-100 mg oral tablet See Instructions, TAKE 1 TABLET BY MOUTH EVERY DAY, # 90 tablet, 3 Refills, Soft Stop, 01/02/20 13:12:00 EDT, [facility]/pharmacy #[id number], TAKE 1 TABLET BY MOUTH EVERY DAY, 170, cm, 04/18/19 13:58:00 EDT, Height Start Date: 01/02/20 Status: OrderedImodium A-D 2 mg oral tablet See Instructions, 0.5 tablet By mouth daily on Wednesday, Wednesday and Wednesday, # 12 tablet, Refills 3,Tot. Refills 3, Maintenance, 07/20/18 10:28:09 EST, Instructions Replace Required Details, Route to Pharmacy Electronically, [id number]... Start Date: 07/20/18 Status: Orderedlithium 450 mg oral tablet, extended release See Instructions, TAKE 1 TABLET BY MOUTH EVERY DAY, # 90 tablet, 1 Refills, Soft Stop, 11/13/19 12:43:00 EDT, [facility]/pharmacy #[id number], 170, cm, 04/18/19 13:58:00 EDT, [...] 0 Refills, Soft Stop, 07/24/19 8:10:00 EST, [facility]/pharmacy #[id number], 170, cm, 04/18/19 13:58:00 EDT, Height Start Date: 07/24/19 Status: OrderedRisperDAL 2 mg oral tablet 2 mg, 1, tablet, By Mouth, Daily at bedtime, # 90 tablet, Refills 3, Tot. Refills 3, Maintenance, 01/02/20 15:00:00 EDT, Route to Pharmacy Electronically, [facility]/pharmacy #[id number], DOSE INCREASE; D/C RISPERIDONE 1 [...] Effective Health Clinical Informant Dates Status Service Well adult exam Discharge 01/15/20 Diagnosis Agitated depression Discharge 01/15/20 Diagnosis COPD NOS Discharge 01/15/20 Diagnosis Hypertension Discharge 01/15/20 Diagnosis Hypercholesterolemia Discharge 01/15/20 Diagnosis Tobacco abuse Discharge 01/15/20 Diagnosis Persistent insomnia Discharge 01/15/20 Diagnosis Cocaine abuse in Discharge 01/15/20 remission Diagnosis Alcohol abuse, in Discharge 01/15/20 remission Diagnosis Vital Signs Most recent to oldest [Reference Range]: 1 Height 170 cm (01/15/20 2:32 PM) Weight 60.9 kg (01/15/20 2:32 PM) Oxygen Saturation [94-100 %] 98 % (01/15/20 2:32 PM) Pulse Rate [55-90 bpm] 72 bpm (01/15/20 2:32 PM) Body Mass Index [18.5-24.99] 21.07 (01/15/20 2:32 PM) Blood Pressure [90-138/55-84 mm Hg] 122/60 mm Hg (01/15/20 2:32 PM) Respiratory Rate [16-30 br/min] 14 br/min *L* (01/15/20 2:32 PM) Temperature [96.8-100.4 DegF] 97.6 DegF (01/15/20 2:32 PM) Mode of Delivery (Oxygen) Room air (01/15/20 2:32 PM) Blood pressure sites Arm, left (01/15/20 2:32 PM) Temperature Route Oral (01/15/20 2:32 PM) Weight Obtained Via Standing scale (01/15/20 2:32 PM) Social History Social History Type Response Smoking Status 10 or more cigarettes (1/2 p ack or more)/day in last 30 days; Other: 1ppd, 48yrs; entered on: 01/15/20 Sex
--- OUTSIDE RECORDS SUMMARY | 2022-05-22 21:53 | XMS_ITS | Continuity of Care Document ---
:1960 Author Organization [facility] Adult Address [address] [place] [address]- Care Team Providers Name Role Phone Perry OROZCO, Naz Alexander Primary Care Physician Encounter [facility] Date(s): 11/13/21 - 12/13/21 [facility] [address] [place] [address]- Allergies, Adverse Reactions, Alerts Substance Reaction Severity [...] 1Early/Late Reason: Early/Late Reason: Other : NOT [id number] Comment: [id number] Comment: [facility]: [id number] EXP: [id number] Comment: [04/19/2017] radha [facility] [phone] Note: VIS [id number] Note: VIS [id number] Note: BIOMEDICAL LELA given by [id number] Note: given in clinic Medications citalopram 20 mg oral tablet 20 mg, 1, tablet, By Mouth, Daily, # 90 tablet, Refills 3, Tot. Refills 3, Maintenance, 08/12/21 16:53:00 EST, Route to Pharmacy Electronically, [facility]/pharmacy #[id number], 170, cm, 05/22/21 11:26:00 EDT, Height Start Date: 08/12/21 Status: Orderedezetimibe 10 mg oral tablet 1 tablet, By Mouth, Daily at bedtime, # 90 tablet, 3 Refills, Maintenance, 08/26/21 14:16:00 EST, [facility]/pharmacy #[id number], 170, cm, 05/22/21 11:26:00 EDT, Height Start Date: 08/26/21 Status: Orderedfluticasone 50 mcg/inh nasal spray See Instructions, TAKE 2 SPRAYS INTO BOTH NOSTRILS DAILY, # 48 mL, 1 Refills, 08/11/21 15:41:00 EST,[facility]/pharmacy #[id number], 90, TAKE 2 SPRAYS INTO BOTH NOSTRILS DAILY, 170, cm, 05/22/21 11:26:00 EDT, Height Start Date: 08/11/21 Status: Orderedhydrochlorothiazide-losartan 12.5 mg-100 mg oral tablet 1 tablet, By Mouth, Daily, # 30 tablet, 5 Refills, [id number], 30, TAKE 1 TABLET BY MOUTH EVERYDAY, 170, cm, 05/22/21 11:26:00 EDT, Height Start Date: 07/17/21 Status: OrderedImodium A-D 2 mg oral tablet See Instructions, 0.5 tablet By mouth daily on Wednesday, Wednesday and Wednesday, # 12 tablet, Refills 3,Tot. Refills 3, Maintenance, 07/20/18 10:28:09 EST, Instructions Replace Required Details, Route to Pharmacy Electronically, [id number]... Start Date: 07/20/18 Status: Orderedlithium 450 mg oral tablet, extended release 1 tablet, By Mouth, Daily, # 30 tablet, 2 Refills, 09/15/21 15:03:00 EST, [facility]/pharmacy #[id number], 170, cm, 09/15/21 14:44:00 EST, Height Start Date: 09/15/21 Status: OrderedMetoprolol Tartrate 50 mg oral tablet 1 tablet, By Mouth, 2 times a day, # 60 tablet, 5 Refills, [id number], 170, cm, 05/22/21 11:26:00 EDT, Height Start Date: 08/22/21 Status: OrderedrisperiDONE 2 mg oral tablet 1, tablet, By Mouth, Daily at bedtime, # 30 tablet, Refills 1, [facility]ically, [id number], 170, cm, 09/15/21 14:44:00 EST, Height Start Date: 11/04/21 Status: Ordered Problem List Condition Effective Dates Status Health Status Informant Agitated depression(Confirmed) Active Allergic rhinitis(Confirmed) Active Atrophic vulva(Confirmed) Active Bipolar 2 disorder(Confirmed) Active COPD NOS(Confirmed) Active Dyspnea on exertion(Confirmed) Active Esophageal Reflux(Confirmed) Active History of colon polyps(Confirmed) Active Hypercholesterolemia(Confirmed) Active Hypertension(Confirmed) 05/27/12 Active Alcohol abuse, 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) Active Onychomycosis(Confirmed) Active Persistent insomnia(Confirmed) Active Solar lentigo(Confirmed) Active Tobacco abuse(Confirmed) Active Social History Social History Type Response Smoking Status 5-9 cigarettes (between 1/4 to 1/2 pack)/day in last 30 days; Other: 1ppd, 48yrs; entered on: 10/31/20 Sex
--- OUTSIDE RECORDS SUMMARY | 2022-05-22 21:53 | XMS_ITS | Continuity of Care Document ---
:1960 Author Organization [facility] Adult Address [address] [place] [address]- Care Team Providers Name Role Phone Annetta Zambrano NP Primary Care Physician [facility]counter [facility] Date(s): 06/18/20 - 07/18/20 [facility] [address] [place] [address]- Allergies, Adverse Reactions, Alerts Substance Reaction Severity [...] Inactive (IM) (oldterm)6 05/18/08 Given 1Result Comment: [facility]: [id number] EXP: [id number] Comment: [04/19/2017] radha [facility] [phone] Note: VIS [id number] Note: VIS [id number] Note: BIOMEDICAL LELA given by [id number] Note: given in clinic Medications atorvastatin 80 mg oral tablet See Instructions, TAKE 1 TABLET BY MOUTH DAILY, # 30 tablet, 5 Refills, Soft Stop, 03/14/20 14:51:00EDT, [facility]/pharmacy #[id number], 170, cm, 01/15/20 14:32:00 EDT, Height Start Date: 03/14/20 Status: Orderedcitalopram 20 mg oral tablet 20 mg, 1, tablet, By Mouth, Daily, # 90 tablet, Refills 3, Tot. Refills 3, Maintenance, 01/02/20 14:57:00 EDT, Route to Pharmacy Electronically, [facility]/pharmacy #[id number], 170, cm, 04/18/19 13:58:00 EDT, Height Start Date: 01/02/20 Status: Orderedfluticasone 50 mcg/inh nasal spray See Instructions, TAKE 2 SPRAYS INTO BOTH NOSTRILS DAILY, # 48 mL, 1 Refills, Soft Stop, 03/25/20 21:36:00 EDT, [facility]/pharmacy #[id number], TAKE 2 SPRAYS INTO BOTH NOSTRILS DAILY, 170, cm, 01/15/20 14:32:00 EDT, Height Start Date: 03/25/20 Status: Orderedhydrochlorothiazide-losartan 12.5 mg-100 mg oral tablet See Instructions, TAKE 1 TABLET BY MOUTH EVERY DAY, # 90 tablet, 3 Refills, Soft Stop, 01/02/20 13:12:00 EDT, [facility]/pharmacy #0693, TAKE 1 TABLET BY MOUTH EVERY DAY, 170, cm, 04/18/19 13:58:00 EDT, Height Start Date: 01/02/20 Status: OrderedImodium A-D 2 mg oral tablet See Instructions, 0.5 tablet By mouth daily on Wednesday, Wednesday and Wednesday, # 12 tablet, Refills 3,Tot. Refills 3, Maintenance, 07/20/18 10:28:09 EST, Instructions Replace Required Details, Route to Pharmacy Electronically, [id number]... Start Date: 07/20/18 Status: Orderedlithium 450 mg oral tablet, extended release 1 tablet, By Mouth, Daily, # 90 tablet, 1 Refills, Maintenance, 05/10/20 9:15:00 EDT, [id number], 170, cm, 04/25/20 14:26:00 EDT, Height Start [...] 1 Refills, Soft Stop, 04/01/20 15:13:00 EDT, [facility]/pharmacy #0693, 170, cm, 01/15/20 14:32:00 EDT, Height Start Date: 04/01/20 Status: OrderedRisperDAL 2 mg oral tablet 2 mg, 1, tablet, By Mouth, Daily at bedtime, # 90 tablet, Refills 3, Tot. Refills 3, Maintenance, 01/02/20 15:00:00 EDT, Route to Pharmacy Electronically, [facility]/pharmacy #[id number], DOSE INCREASE; D/C RISPERIDONE 1 MG, [...]
--- OUTSIDE RECORDS SUMMARY | 2022-05-22 21:53 | XMS_ITS | Continuity of Care Document ---
:1960 Author Organization [facility] Adult Address [address] [place] [address]- Care Team Providers Name Role Phone Perry OROZCO, Naz Alexander Primary Care Physician [facility]counter [facility] Date(s): 12/23/21 - 01/22/22 [facility] [address] [place] [address]- Allergies, Adverse Reactions, Alerts Substance Reaction Severity [...] 1Early/Late Reason: Early/Late Reason: Other : NOT [id number] Comment: [id number] Comment: [facility]: [id number] EXP: [id number] Comment: [04/19/2017] radha [facility] [phone] Note: VIS [id number] Note: VIS [id number] Note: BIOMEDICAL LELA given by [id number] Note: given in clinic Medications citalopram 20 mg oral tablet 20 mg, 1, tablet, By Mouth, Daily, # 90 tablet, Refills 3, Tot. Refills 3, Maintenance, 08/12/21 16:53:00 EST, Route to Pharmacy Electronically, [facility]/pharmacy #[id number], 170, cm, 05/22/21 11:26:00 EDT, Height Start Date: 08/12/21 Status: Orderedezetimibe 10 mg oral tablet 1 tablet, By Mouth, Daily at bedtime, # 90 tablet, 3 Refills, Maintenance, 08/26/21 14:16:00 EST, [facility]/pharmacy #0693, 170, cm, 05/22/21 11:26:00 EDT, Height Start Date: 08/26/21 Status: Orderedfluticasone 50 mcg/inh nasal spray See Instructions, TAKE 2 SPRAYS INTO BOTH NOSTRILS DAILY, # 48 mL, 1 Refills, 08/11/21 15:41:00 EST,[facility]/pharmacy #[id number], 90, TAKE 2 SPRAYS INTO BOTH NOSTRILS DAILY, 170, cm, 05/22/21 11:26:00 EDT, Height Start Date: 08/11/21 Status: Orderedhydrochlorothiazide-losartan 12.5 mg-100 mg oral tablet 1 tablet, By Mouth, Daily, # 30 tablet, 5 Refills, 01/22/22 16:29:00 EDT, [facility]/pharmacy #[id number], 30, 1 tablet By Mouth Daily, 170, cm, 12/18/21 7:29:00 EDT, Height Start Date: 01/22/22 Status: OrderedImodium A-D 2 mg oral tablet See Instructions, 0.5 tablet By mouth daily on Wednesday, Wednesday and Wednesday, # 12 tablet, Refills 3,Tot. Refills 3, Maintenance, 07/20/18 10:28:09 EST, Instructions Replace Required Details, Route to Pharmacy Electronically, [id number]... Start Date: 07/20/18 Status: Orderedlithium 450 mg oral tablet, extended release See Instructions, TAKE 1 TABLET BY MOUTH EVERY DAY, # 30 tablet, 1 Refills, [id number], 170, cm, 12/18/21 7:29:00 EDT, Height Start Date: 12/18/21 Status: Orderedlithium 450 mg oral tablet, extended release 1 tablet, By Mouth, Daily, # 30 tablet, 3 Refills, 12/22/21 10:26:00 EDT, [facility]/pharmacy #[id number], 170, cm, 12/18/21 7:29:00 EDT, Height Start Date: 12/22/21 Status: OrderedMetoprolol Tartrate 50 mg oral tablet 1 tablet, By Mouth, 2 times a day, # 60 tablet, 5 Refills, [id number], 170, cm, 05/22/21 11:26:00 EDT, Height Start Date: 08/22/21 Status: OrderedrisperiDONE 2 mg oral tablet 1, tablet, By Mouth, Daily at bedtime, # 30 tablet, Refills 1, Tot. Refills 1, 01/02/22 11:48:00 EDT, Route to Pharmacy Electronically, [facility]/pharmacy #[id number], 170, cm, 12/18/21 7:29:00 EDT, Height Start Date: 01/02/22 Status: Ordered Problem List Condition Effective Dates [...]
--- OUTSIDE RECORDS SUMMARY | 2022-05-22 21:53 | XMS_ITS | Continuity of Care Document ---
:1960 Author Organization [facility] Adult Address [address] [place] [address]- Care Team Providers Name Role Phone Not on Staff, PCP Primary Care Physician Unavailable [facility]counter [facility] Date(s): 05/19/21 - 06/18/21 [facility] [address] [place] [address]- Allergies, Adverse Reactions, Alerts Substance Reaction Severity [...] 1Early/Late Reason: Early/Late Reason: Other : NOT [id number] Comment: [id number] Comment: [facility]: [id number] EXP: [id number] Comment: [04/19/2017] radha [facility] [phone] Note: VIS [id number] Note: VIS [id number] Note: BIOMEDICAL LELA given by [id number] Note: given in clinic Medications citalopram 20 mg oral tablet 20 mg, 1, tablet, By Mouth, Daily, # 30 tablet, Refills 1, Tot. Refills 1, Maintenance, 05/20/21 9:17:00 EDT, Route to Pharmacy Electronically, [facility]/pharmacy #[id number], 170, cm, 01/29/21 10:12:00 EDT, Height Start Date: 05/20/21 Status: Orderedezetimibe 10 mg oral tablet 1 tablet, By Mouth, Daily at bedtime, # 30 tablet, 1 Refills, Maintenance, 05/20/21 9:20:00 EDT, [facility]/pharmacy #[id number], 170, cm, 01/29/21 10:12:00 EDT, Height Start Date: 05/20/21 Status: Orderedfluticasone 50 mcg/inh nasal spray See Instructions, TAKE 2 SPRAYS INTO BOTH NOSTRILS DAILY, # 48 mL, 1 Refills, Maintenance, [facility] [id number], 90, TAKE 2 SPRAYS INTO BOTH NOSTRILS DAILY, 170, cm, 11/18/20 7:13:00 EDT, Height Start Date: 01/26/21 Status: Orderedhydrochlorothiazide-losartan 12.5 mg-100 mg oral tablet See Instructions, TAKE 1 TABLET BY MOUTH EVERY DAY, # 30 tablet, 1 Refills, Soft Stop, 05/20/21 9:19:00 EDT, [facility]/pharmacy #[id number], TAKE 1 TABLET BY MOUTH EVERY DAY, 170, cm, 01/29/21 10:12:00 EDT, Height Start Date: 05/20/21 Status: OrderedImodium A-D 2 mg oral tablet See Instructions, 0.5 tablet By mouth daily on Wednesday, Wednesday and Wednesday, # 12 tablet, Refills 3,Tot. Refills 3, Maintenance, 07/20/18 10:28:09 EST, Instructions Replace Required Details, Route to Pharmacy Electronically, [id number]... Start Date: 07/20/18 Status: Orderedlithium 450 mg oral tablet, extended release 1 tablet, By Mouth, Daily, # 30 tablet, 1 Refills, Maintenance, 05/20/21 9:17:00 EDT, [facility]/pharmacy #[id number], 170, cm, 01/29/21 10:12:00 EDT, Height Start Date: 05/20/21 Status: OrderedMetoprolol Tartrate 50 mg oral tablet 1 tablet = 50 mg, By Mouth, 2 times a day, # 60 tablet, 1 Refills, Soft Stop, 05/20/21 9:17:00 EDT, [facility]/pharmacy #[id number], 170, cm, 01/29/21 10:12:00 EDT, Height Start Date: 05/20/21 Status: OrderedrisperiDONE 2 mg oral tablet 2 mg, 1, tablet, By Mouth, Daily at bedtime, TAKE 1 TABLET BY MOUTH EVERYDAY AT BEDTIME, # 30 tablet, Refills 1, Tot. Refills 1, Maintenance, 05/20/21 9:19:00 EDT, Route to Pharmacy Electronically, [facility]/pharmacy #[id number], Partial fill upon patient request... Start [...]
--- OUTSIDE RECORDS SUMMARY | 2022-05-22 21:53 | XMS_ITS | Continuity of Care Document ---
:1960 Author Organization [facility] Adult Address [address] [place] [address]- Care Team Providers Name Role Phone Annetta Zambrano NP Primary Care Physician Encounter [facility] Date(s): 11/11/20 - 12/11/20 [facility] Adult [address] [place] [address]- Allergies, Adverse Reactions, Alerts Substance Reaction Severity [...] Inactive (IM) (oldterm)6 05/18/08 Given 1Result Comment: [facility]: [id number] EXP: [id number] Comment: [04/19/2017] radha [facility] [phone] Note: VIS [id number] Note: VIS [id number] Note: BIOMEDICAL LELA given by [id number] Note: given in clinic Medications citalopram 20 mg oral tablet 20 mg, 1, tablet, By Mouth, Daily, # 90 tablet, Refills 1, Tot. Refills 1, Maintenance, 11/11/20 16:11:00 EDT, Route to Pharmacy Electronically, [facility]/pharmacy #[id number], 170, cm, 10/31/20 14:37:00 EDT, Height Start Date: 11/11/20 Status: Orderedezetimibe 10 mg oral tablet 1 tablet = 10 mg, By Mouth, Daily at bedtime, # 30 tablet, 3 Refills, Maintenance, 10/31/20 14:59:00EDT, Tablet, [facility]/pharmacy #[id number], Partial fill upon patient request if the prescription is for a schedule II opioid drug., 170, cm, 10/31/20 14:37:00 E... Start Date: 10/31/20 Status: Orderedfluticasone 50 mcg/inh nasal spray See Instructions, TAKE 2 SPRAYS INTO BOTH NOSTRILS DAILY, # 48 mL, 1 Refills, Soft Stop, 03/25/20 21:36:00 EDT, [facility]/pharmacy #[id number], TAKE 2 SPRAYS INTO BOTH NOSTRILS DAILY, 170, cm, 01/15/20 14:32:00 EDT, Height Start Date: 03/25/20 Status: Orderedhydrochlorothiazide-losartan 12.5 mg-100 mg oral tablet See Instructions, TAKE 1 TABLET BY MOUTH EVERY DAY, # 90 tablet, 1 Refills, Soft Stop, 11/11/20 16:11:00 EDT, [facility]/pharmacy #[id number], TAKE 1 TABLET BY MOUTH EVERY DAY, 170, cm, 10/31/20 14:37:00 EDT, Height Start Date: 11/11/20 Status: OrderedImodium A-D 2 mg oral tablet See Instructions, 0.5 tablet By mouth daily on Wednesday, Wednesday and Wednesday, # 12 tablet, Refills 3,Tot. Refills 3, Maintenance, 07/20/18 10:28:09 EST, Instructions Replace Required Details, Route to Pharmacy Electronically, [id number]... Start Date: 07/20/18 Status: Orderedlithium 450 mg oral tablet, extended release 1 tablet, By Mouth, Daily, # 90 tablet, 1 Refills, Maintenance, 11/12/20 14:00:00 EDT, [facility]/pharmacy #[id number], 170, cm, 10/31/20 14:37:00 EDT, Height Start Date: 11/12/20 Status: OrderedMetoprolol Tartrate 50 mg oral tablet 1 tablet = 50 mg, By Mouth, 2 times a day, # 180 tablet, 1 Refills, Soft Stop, 07/29/20 10:27:00 EST, [facility]/pharmacy #[id number], 170, cm, 06/14/20 6:52:00 EST, Height Start Date: 07/29/20 Status: OrderedrisperiDONE 2 mg oral tablet 2 mg, 1, tablet, By Mouth, Daily at bedtime, TAKE 1 TABLET BY MOUTH EVERYDAY AT BEDTIME, # 90 tablet, Refills 1, Tot. Refills 1, Maintenance, 11/12/20 14:00:00 EDT, Route to Pharmacy Electronically, [facility]/pharmacy #[id number], Partial fill upon patient reques... Start [...]
--- OUTSIDE RECORDS SUMMARY | 2022-05-22 21:53 | XMS_ITS | Continuity of Care Document ---
:1960 Author Organization [facility] Address [address] [place] [address]- Care Team Providers Name Role Phone Perry OROZCO, Naz Alexander Primary Care Physician Encounter [facility] Date(s): 01/12/22 - 02/11/22 [facility] [address] [place] [id number] Attending Physician: Sherry Peterson Admitting Physician: Sherry Peterson Referring Physician: AdmtrSherry Allergies, Adverse Reactions, Alerts Substance Reaction Severity [...] 1Early/Late Reason: Early/Late Reason: Other : NOT [id number] Comment: [id number] Comment: [facility]: [id number] EXP: [id number] Comment: [04/19/2017] radha [facility] [phone] Note: VIS [id number] Note: VIS [id number] Note: BIOMEDICAL LELA given by [id number] Note: given in clinic Medications citalopram 20 mg oral tablet 20 mg, 1, tablet, By Mouth, Daily, # 90 tablet, Refills 3, Tot. Refills 3, Maintenance, 08/12/21 16:53:00 EST, Route to Pharmacy Electronically, [facility]/pharmacy #[id number], 170, cm, 05/22/21 11:26:00 EDT, Height Start Date: 08/12/21 Status: Orderedezetimibe 10 mg oral tablet 1 tablet, By Mouth, Daily at bedtime, # 90 tablet, 3 Refills, Maintenance, 08/26/21 14:16:00 EST, [facility]/pharmacy #[id number], 170, cm, 05/22/21 11:26:00 EDT, Height Start Date: 08/26/21 Status: Orderedfluticasone 50 mcg/inh nasal spray See Instructions, SPRAY 2 SPRAYS INTO BOTH NOSTRILS DAILY, # 48 mL, 1 Refills, [facility] STORE [facility]46, 90, SPRAY 2 SPRAYS INTO BOTH NOSTRILS DAILY, 170, cm, 12/18/21 7:29:00 EDT, Height Start Date: 02/03/22 Status: Orderedhydrochlorothiazide-losartan 12.5 mg-100 mg oral tablet 1 tablet, By Mouth, Daily, # 30 tablet, 5 Refills, 01/22/22 16:29:00 EDT, [facility]/pharmacy #0693, 30, 1 tablet By Mouth Daily, 170, cm, 12/18/21 7:29:00 EDT, Height Start Date: 01/22/22 Status: OrderedImodium A-D 2 mg oral tablet See Instructions, 0.5 tablet By mouth daily on Wednesday, Wednesday and Wednesday, # 12 tablet, Refills 3,Tot. Refills 3, Maintenance, 07/20/18 10:28:09 EST, Instructions Replace Required Details, Route to Pharmacy Electronically, [id number]... Start Date: 07/20/18 Status: Orderedlithium 450 mg oral tablet, extended release See Instructions, TAKE 1 TABLET BY MOUTH EVERY DAY, # 30 tablet, 1 Refills, [facility], 170, cm, 12/18/21 7:29:00 EDT, Height Start Date: 12/18/21 Status: Orderedlithium 450 mg oral tablet, extended release 1 tablet, By Mouth, Daily, # 30 tablet, 3 Refills, 12/22/21 10:26:00 EDT, [facility]/pharmacy #[id number], 170, cm, 12/18/21 7:29:00 EDT, Height Start Date: 12/22/21 Status: OrderedMetoprolol Tartrate 50 mg oral tablet 1 tablet, By Mouth, 2 times a day, # 60 tablet, 5 Refills, [facility], 170, cm, 05/22/21 11:26:00 EDT, Height Start Date: 08/22/21 Status: OrderedrisperiDONE 2 mg oral tablet 1, tablet, By Mouth, Daily at bedtime, # 30 tablet, Refills 2, Route to Pharmacy Electronically, [facility], 170, cm, 12/18/21 7:29:00 EDT, Height Start [...]
--- OUTSIDE RECORDS SUMMARY | 2022-05-22 21:53 | XMS_ITS | Continuity of Care Document ---
:1960 Author Organization [facility] Adult Address [address] [place] [address]- Care Team Providers Name Role Phone Perry OROZCO, Naz Alexander Primary Care Physician Encounter [facility] Date(s): 12/18/21 - 12/25/21 [facility] Adult [address] [place] [address]- Encounter Diagnosis Agitated depression (Discharge Diagnosis) - 12/18/21 Bipolar 2 disorder (Discharge Diagnosis) - 12/18/21 COPD NOS (Discharge Diagnosis) - 12/18/21 Hypertension (Discharge Diagnosis) - 12/18/21 Hypercholesterolemia (Discharge Diagnosis) - 12/18/21 Anxiety (Discharge Diagnosis) - 12/18/21 Attending Physician: Naz Amador NP Referring Physician: Octavio Farah MD Allergies, Adverse Reactions, Alerts Substance Reaction Severity [...] 1Early/Late Reason: Early/Late Reason: Other : NOT [id number] Comment: [id number] Comment: [facility]: [id number] EXP: [id number] Comment: [04/19/2017] radha [facility] [phone] Note: VIS [id number] Note: VIS [id number] Note: BIOMEDICAL LELA given by [id number] Note: given in clinic Medications citalopram 20 mg oral tablet 20 mg, 1, tablet, By Mouth, Daily, # 90 tablet, Refills 3, Tot. Refills 3, Maintenance, 08/12/21 16:53:00 EST, Route to Pharmacy Electronically, [facility]/pharmacy #[id number], 170, cm, 05/22/21 11:26:00 EDT, Height Start Date: 08/12/21 Status: Orderedezetimibe 10 mg oral tablet 1 tablet, By Mouth, Daily at bedtime, # 90 tablet, 3 Refills, Maintenance, 08/26/21 14:16:00 EST, [facility]/pharmacy #[id number], 170, cm, 05/22/21 11:26:00 EDT, Height Start Date: 08/26/21 Status: Orderedfluticasone 50 mcg/inh nasal spray See Instructions, TAKE 2 SPRAYS INTO BOTH NOSTRILS DAILY, # 48 mL, 1 Refills, 08/11/21 15:41:00 EST,[facility]/pharmacy #0693, 90, TAKE 2 SPRAYS INTO BOTH NOSTRILS DAILY, 170, cm, 05/22/21 11:26:00 EDT, Height Start Date: 08/11/21 Status: Orderedhydrochlorothiazide-losartan 12.5 mg-100 mg oral tablet 1 tablet, By Mouth, Daily, # 30 tablet, 5 Refills, [facility], 30, TAKE 1 TABLET BY MOUTH EVERYDAY, 170, cm, 05/22/21 11:26:00 EDT, Height Start Date: 07/17/21 Status: OrderedImodium A-D 2 mg oral tablet See Instructions, 0.5 tablet By mouth daily on Wednesday, Wednesday and Wednesday, # 12 tablet, Refills 3,Tot. Refills 3, Maintenance, 07/20/18 10:28:09 EST, Instructions Replace Required Details, Route to Pharmacy Electronically, [id number]... Start Date: 07/20/18 Status: Orderedlithium 450 mg oral tablet, extended release See Instructions, TAKE 1 TABLET BY MOUTH EVERY DAY, # 30 tablet, 1 Refills, [facility], 170, cm, 12/18/21 7:29:00 EDT, Height Start Date: 12/18/21 Status: Orderedlithium 450 mg oral tablet, extended release 1 tablet, By Mouth, Daily, # 30 tablet, 3 Refills, 12/22/21 10:26:00 EDT, [facility]/pharmacy #[id number], 170, cm, 12/18/21 7:29:00 EDT, Height Start Date: 12/22/21 Status: OrderedMetoprolol Tartrate 50 mg oral tablet 1 tablet, By Mouth, 2 times a day, # 60 tablet, 5 Refills, [facility], 170, cm, 05/22/21 11:26:00 EDT, Height Start Date: 08/22/21 Status: OrderedrisperiDONE 2 mg oral tablet 1, tablet, By Mouth, Daily at bedtime, # 30 tablet, Refills 1, Route to Pharmacy Electronically, [facility], 170, cm, 09/15/21 14:44:00 EST, Height Start [...] Tobacco abuse(Confirmed) Active Diagnosis Diagnosis Type Effective Dates Health Clinical Infor mant Status Service Agitated depression Discharge 12/18/21 Diagnosis Bipolar 2 disorder Discharge 12/18/21 Diagnosis COPD NOS Discharge 12/18/21 Diagnosis Hypertension Discharge 12/18/21 Diagnosis Hypercholesterolemia Discharge 12/18/21 Diagnosis Anxiety Discharge 12/18/21 Diagnosis Vital Signs Most recent to oldest [Reference Range]: 1 Height 170 cm (12/18/21 7:29 AM) Weight 59.3 kg (12/18/21 7:29 AM) Oxygen Saturation [94-100 %] 100 % (12/18/21 7:29 AM) Pulse Rate [55-90 bpm] 62 bpm (12/18/21 7:29 AM) Body Mass Index [18.5-24.99] 20.52 (12/18/21 7:29 AM) Blood Pressure [90-138/55-84 mm Hg] 106/68 mm Hg (12/18/21 7:29 AM) Temperature [96.8-100.4 DegF] 97.0 DegF (12/18/21 7:29 AM) Blood pressure sites Arm, right (12/18/21 7:29 AM) Temperature Route Temporal (12/18/21 7:29 AM) Weight Obtained Via Standing scale (12/18/21 7:29 AM) Social History Social History Type Response Smoking Status 5-9 cigarettes (between 1/4 to 1/2 pack)/day in last 30 days; Other: 1ppd, 48yrs; entered on: 10/31/20 Sex
--- OUTSIDE RECORDS SUMMARY | 2022-05-22 21:53 | XMS_ITS | Continuity of Care Document ---
:1960 Author Organization [facility] Adult Address [address] [place] [address]- Care Team Providers Name Role Phone Annetta Zambrano NP Primary Care Physician Encounter [facility] Date(s): 01/23/21 - 02/22/21 [facility] Adult [address] [place] [address]- Allergies, Adverse Reactions, Alerts Substance Reaction Severity [...] Inactive (IM) (oldterm)6 05/18/08 Given 1Result Comment: [facility]: [id number] EXP: [id number] Comment: [04/19/2017] SHELLIE garcia [phone] Note: VIS [id number] Note: VIS [id number] Note: BIOMEDICAL LELA given by [id number] Note: given in clinic Medications citalopram 20 mg oral tablet 20 mg, 1, tablet, By Mouth, Daily, # 90 tablet, Refills 1, Tot. Refills 1, Maintenance, 11/11/20 16:11:00 EDT, [facility] to [facility], [id number], 170, cm, 10/31/20 14:37:00 EDT, Height Start Date: 11/11/20 Status: Orderedezetimibe 10 mg oral tablet 1 tablet, By Mouth, Daily at bedtime, # 90 tablet, 1 Refills, Maintenance, 01/24/21 14:36:00 EDT, [facility]/pharmacy #[id number], 170, cm, 11/18/20 7:13:00 EDT, Height Start Date: 01/24/21 Status: Orderedfluticasone 50 mcg/inh nasal spray See Instructions, TAKE 2 SPRAYS INTO BOTH NOSTRILS DAILY, # 48 mL, 1 Refills, Maintenance, [facility] [id number], 90, TAKE 2 SPRAYS INTO BOTH NOSTRILS DAILY, 170, cm, 11/18/20 7:13:00 EDT, Height Start Date: 01/26/21 Status: Orderedhydrochlorothiazide-losartan 12.5 mg-100 mg oral tablet See Instructions, TAKE 1 TABLET BY MOUTH EVERY DAY, # 90 tablet, 1 Refills, Soft Stop, 11/11/20 16:11:00 EDT, [facility]/pharmacy #[id number], TAKE 1 TABLET BY MOUTH EVERY DAY, 170, cm, 10/31/20 14:37:00 EDT, Height Start Date: 11/11/20 Status: OrderedImodium A-D 2 mg oral tablet See Instructions, 0.5 tablet By mouth daily on Wednesday, Wednesday and Wednesday, # 12 tablet, Refills 3,Tot. Refills 3, Maintenance, 07/20/18 10:28:09 EST, Instructions Replace Required Details, Route to Pharmacy Electronically, [id number]... Start Date: 07/20/18 Status: Orderedlithium 450 mg oral tablet, extended release 1 tablet, By Mouth, Daily, # 90 tablet, 1 Refills, Maintenance, 11/12/20 14:00:00 EDT, [facility]/pharmacy #[id number], 170, cm, 10/31/20 14:37:00 EDT, Height Start Date: 11/12/20 Status: OrderedMetoprolol Tartrate 50 mg oral tablet 1 tablet = 50 mg, By Mouth, 2 times a day, # 180 tablet, 1 Refills, Soft Stop, 07/29/20 10:27:00 EST, [facility]/pharmacy #[id number], 170, cm, 06/14/20 6:52:00 EST, Height Start Date: 07/29/20 Status: OrderedrisperiDONE 2 mg oral tablet 2 mg, 1, tablet, By Mouth, Daily at bedtime, TAKE 1 TABLET BY MOUTH EVERYDAY AT BEDTIME, # 90 tablet, Refills 1, Tot. Refills 1, Maintenance, 11/12/20 14:00:00 EDT, Route to Pharmacy Electronically, [facility]/pharmacy #[id number], Partial fill upon patient reques... [...]
--- OUTSIDE RECORDS SUMMARY | 2022-05-22 21:53 | XMS_ITS | Continuity of Care Document ---
:1960 Author Organization [facility] Address [address] [place] [address], [address] [address]- Care Team Providers Name Role Phone Perry OROZCO, Naz Alexander Primary Care Physician Encounter 04/22/22 - 04/29/22 [facility] [address], [address] [address]- Attending Physician: Perry OROZCO, Naz Alexander Admitting Physician: Perry OROZCO, Naz Alexander Referring Physician: Perry OROZCO, Naz Alexander Allergies, Adverse Reactions, Alerts Substance Reaction Severity [...] 1Early/Late Reason: Early/Late Reason: Other : NOT [id number] Comment: [id number] Comment: [facility]: [id number] EXP: [id number] Comment: [04/19/2017] radha [facility] [phone] Note: VIS [id number] Note: VIS [id number] Note: BIOMEDICAL LELA given by [id number] Note: given in clinic Medications citalopram 20 mg oral tablet 20 mg, 1, tablet, By Mouth, Daily, # 90 tablet, Refills 3, Tot. Refills 3, Maintenance, 08/12/21 16:53:00 EST, Route to Pharmacy Electronically, [facility]/pharmacy #[id number], 170, cm, 05/22/21 11:26:00 EDT, Height Start Date: 08/12/21 Status: Orderedezetimibe 10 mg oral tablet 1 tablet, By Mouth, Daily at bedtime, # 90 tablet, 3 Refills, Maintenance, 08/26/21 14:16:00 EST, [facility]/pharmacy #[id number], 170, cm, 05/22/21 11:26:00 EDT, Height Start Date: 08/26/21 Status: Orderedfluticasone 50 mcg/inh nasal spray See Instructions, SPRAY 2 SPRAYS INTO BOTH NOSTRILS DAILY, # 48 mL, 1 Refills, [facility] STORE 26258, 90, SPRAY 2 SPRAYS INTO BOTH NOSTRILS DAILY, 170, cm, 12/18/21 7:29:00 EDT, Height Start Date: 02/03/22 Status: Orderedhydrochlorothiazide-losartan 12.5 mg-100 mg oral tablet 1 tablet, By Mouth, Daily, # 30 tablet, 5 Refills, 01/22/22 16:29:00 EDT, [facility]/pharmacy #[id number], 30, 1 tablet By Mouth Daily, 170, cm, 12/18/21 7:29:00 EDT, Height Start Date: 01/22/22 Status: OrderedImodium A-D 2 mg oral tablet See Instructions, 0.5 tablet By mouth daily on Wednesday, Wednesday and Wednesday, # 12 tablet, Refills 3,Tot. Refills 3, Maintenance, 07/20/18 10:28:09 EST, Instructions Replace Required Details, Route to Pharmacy Electronically, [id number]... Start Date: 07/20/18 Status: Orderedlithium 450 mg oral tablet, extended release 1 tablet, By Mouth, Daily, # 90 tablet, 0 Refills, [facility], 170, cm, 12/18/21 7:29:00 EDT, Height Start Date: 03/20/22 Status: OrderedMetoprolol Tartrate 50 mg oral tablet 1 tablet, By Mouth, 2 times a day, # 60 tablet, 5 Refills, [facility], 170, cm, 05/22/21 11:26:00 EDT, Height Start Date: 08/22/21 Status: OrderedrisperiDONE 2 mg oral tablet 1, tablet, By Mouth, Daily at bedtime, # 30 tablet, Refills 2, Route to Pharmacy Electronically, [facility], 170, cm, 12/18/21 7:29:00 EDT, Height Start Date: 01/31/22 Status: Ordered Problem List Condition Confirmation Course Effective Status Health Informa nt Dates Status Agitated depression Confirmed Active Allergic rhinitis Confirmed Active Atrophic vulva Confirmed Active Bipolar 2 disorder Confirmed Active COPD NOS Confirmed Active Dyspnea on exertion Confirmed Active Esophageal Reflux Confirmed Active History of colon polyps Confirmed Active Hypercholesterolemia Confirmed Active Hypertension Confirmed 05/27/12 Active Alcohol abuse, in Confirmed Active remission Cocaine abuse in Confirmed Active remission Persistent insomnia Confirmed Active Solar lentigo Confirmed Active Tobacco abuse Confirmed Active Social History Social History Type Response Smoking Status 5-9 cigarettes (between 1/4 to 1/2 pack)/day in last 30 days; Other: 1ppd, 48yrs; entered on: 10/31/20 Sex Patient Care team information PersonnelName: Perry OROZCO, Naz Alexander Address: Address: [address] [place] [id number]
--- OUTSIDE RECORDS SUMMARY | 2022-05-22 21:53 | XMS_ITS | Continuity of Care Document ---
:1960 Author Organization [facility] Adult Address [address] [place] [address]- Care Team Providers Name Role Phone Annetta Zambrano NP Primary Care Physician [place] [facility] [place](s): 02/12/21 - 03/14/21 [facility] [address] [place] [address]- Allergies, Adverse Reactions, Alerts Substance Reaction Severity [...] Inactive (IM) (oldterm)6 05/18/08 Given 1Result Comment: [facility]: [id number] EXP: [id number] Comment: [04/19/2017] SHELLIE garcia [phone] Note: VIS [id number] Note: VIS [id number] Note: BIOMEDICAL LELA given by [id number] Note: given in clinic Medications citalopram 20 [...] tablet, 1 Refills, Maintenance, 01/24/21 14:36:00 EDT, [facility]/pharmacy #[id number], 170, cm, 11/18/20 7:13:00 EDT, Height Start Date: 01/24/21 Status: Orderedfluticasone 50 mcg/inh nasal spray See Instructions, TAKE 2 SPRAYS INTO BOTH NOSTRILS DAILY, # 48 mL, 1 Refills, Maintenance, [facility] [id number], 90, TAKE 2 SPRAYS INTO BOTH NOSTRILS DAILY, 170, cm, 11/18/20 7:13:00 EDT, Height Start Date: 01/26/21 Status: Orderedhydrochlorothiazide-losartan 12.5 mg-100 mg oral tablet See Instructions, TAKE 1 TABLET BY MOUTH EVERY DAY, # 90 tablet, 1 Refills, Soft Stop, 11/11/20 16:11:00 EDT, [facility]/pharmacy #[id number], TAKE 1 TABLET BY MOUTH EVERY DAY, 170, cm, 10/31/20 14:37:00 EDT, Height Start Date: 11/11/20 Status: OrderedImodium A-D 2 mg oral tablet See Instructions, 0.5 tablet By mouth daily on Wednesday, Wednesday and Wednesday, # 12 tablet, Refills 3,Tot. Refills 3, Maintenance, 07/20/18 10:28:09 EST, Instructions Replace Required Details, Route to Pharmacy Electronically, [id number]... Start Date: 07/20/18 Status: Orderedlithium 450 mg oral tablet, extended release 1 tablet, By Mouth, Daily, # 90 tablet, 1 Refills, Maintenance, 11/12/20 14:00:00 EDT, [facility]/pharmacy #[id number], 170, cm, 10/31/20 14:37:00 EDT, Height Start Date: 11/12/20 Status: OrderedMetoprolol Tartrate 50 mg oral tablet 1 tablet = 50 mg, By Mouth, 2 times a day, # 180 tablet, 1 Refills, Soft Stop, 07/29/20 10:27:00 EST, [facility]/pharmacy #[id number], 170, cm, 06/14/20 6:52:00 EST, Height Start Date: 07/29/20 Status: OrderedrisperiDONE 2 mg oral tablet 2 mg, 1, tablet, By Mouth, Daily at bedtime, TAKE 1 TABLET BY MOUTH EVERYDAY AT BEDTIME, # 90 tablet, Refills 1, Tot. Refills 1, Maintenance, 11/12/20 14:00:00 EDT, Route to Pharmacy Electronically, [facility]/pharmacy #[id number], Partial fill upon patient reques... [...]
--- OUTSIDE RECORDS SUMMARY | 2022-05-22 21:53 | XMS_ITS | Continuity of Care Document ---
:1960 Author Organization [facility] Address [address] [place] [address]- Care Team Providers Name Role Phone Annetta Zambrano NP Primary Care Physician Encounter [facility] Date(s): 03/31/20 - 04/30/20 [facility] Adult [address] [place] [address]- [facility] Allergies, Adverse Reactions, Alerts Substance Reaction Severity [...] Inactive (IM) (oldterm)6 05/18/08 Given 1Result Comment: [facility]: [id number] EXP: [id number] Comment: [04/19/2017] radha [facility] [phone] Note: VIS [id number] Note: VIS [id number] Note: BIOMEDICAL LELA given by [id number] Note: given in clinic Medications atorvastatin 80 mg oral tablet See Instructions, TAKE 1 TABLET BY MOUTH DAILY, # 30 tablet, 5 Refills, Soft Stop, 03/14/20 14:51:00EDT, [facility]/pharmacy #[id number], 170, cm, 01/15/20 14:32:00 EDT, Height Start Date: 03/14/20 Status: Orderedcitalopram 20 mg oral tablet 20 mg, 1, tablet, By Mouth, Daily, # 90 tablet, Refills 3, Tot. Refills 3, Maintenance, 01/02/20 14:57:00 EDT, Route to Pharmacy Electronically, [facility]/pharmacy #[id number], 170, cm, 04/18/19 13:58:00 EDT, Height Start Date: 01/02/20 Status: Orderedfluticasone 50 mcg/inh nasal spray See Instructions, TAKE 2 SPRAYS INTO BOTH NOSTRILS DAILY, # 48 mL, 1 Refills, Soft Stop, 03/25/20 21:36:00 EDT, [facility]/pharmacy #0693, TAKE 2 SPRAYS INTO BOTH NOSTRILS DAILY, 170, cm, 01/15/20 14:32:00 EDT, Height Start Date: 03/25/20 Status: Orderedhydrochlorothiazide-losartan 12.5 mg-100 mg oral tablet See Instructions, TAKE 1 TABLET BY MOUTH EVERY DAY, # 90 tablet, 3 Refills, Soft Stop, 01/02/20 13:12:00 EDT, [facility]/pharmacy #[id number], TAKE 1 TABLET BY MOUTH EVERY DAY, 170, cm, 04/18/19 13:58:00 EDT, Height Start Date: 01/02/20 Status: OrderedImodium A-D 2 mg oral tablet See Instructions, 0.5 tablet By mouth daily on Wednesday, Wednesday and Wednesday, # 12 tablet, Refills 3,Tot. Refills 3, Maintenance, 07/20/18 10:28:09 EST, Instructions Replace Required Details, Route to Pharmacy Electronically, [id number]... Start Date: 07/20/18 Status: Orderedlithium 450 mg oral tablet, extended release See Instructions, TAKE 1 TABLET BY MOUTH EVERY DAY, # 90 tablet, 1 Refills, Soft Stop, 11/13/19 12:43:00 EDT, [facility]/pharmacy #[id number], 170, cm, 04/18/19 13:58:00 EDT, Height [...] 1 Refills, Soft Stop, 04/01/20 15:13:00 EDT, [facility]/pharmacy #[id number], 170, cm, 01/15/20 14:32:00 EDT, Height Start Date: 04/01/20 Status: OrderedRisperDAL 2 mg oral tablet 2 mg, 1, tablet, By Mouth, Daily at bedtime, # 90 tablet, Refills 3, Tot. Refills 3, Maintenance, 01/02/20 15:00:00 EDT, Route to Pharmacy Electronically, [facility]/pharmacy #0693, DOSE INCREASE; D/C RISPERIDONE 1 MG, [...]
--- OUTSIDE RECORDS SUMMARY | 2022-05-22 21:53 | XMS_ITS | Continuity of Care Document ---
:1960 Author Organization [facility] Adult Address [address] [place] [address]- Care Team Providers Name Role Phone Annetta Zambrano NP Primary Care Physician Encounter [facility] Date(s): 07/29/20 - 08/28/20 [facility] [address] [place] [address]- Allergies, Adverse Reactions, Alerts Substance Reaction Severity [...] Inactive (IM) (oldterm)6 05/18/08 Given 1Result Comment: [facility]: [id number] EXP: [id number] Comment: [04/19/2017] radha [facility] [phone] Note: VIS [id number] Note: VIS [id number] Note: BIOMEDICAL LELA given by [email or web address] Note: given in clinic Medications citalopram 20 mg oral tablet 20 mg, 1, tablet, By Mouth, Daily, # 90 tablet, Refills 3, Tot. Refills 3, Maintenance, 01/02/20 14:57:00 EDT, Route to Pharmacy Electronically, [facility]/pharmacy #[id number], 170, cm, 04/18/19 13:58:00 EDT, Height Start Date: 01/02/20 Status: Orderedfluticasone 50 mcg/inh nasal spray See Instructions, TAKE 2 SPRAYS INTO BOTH NOSTRILS DAILY, # 48 mL, 1 Refills, Soft Stop, 03/25/20 21:36:00 EDT, [facility]/pharmacy #[id number], TAKE 2 SPRAYS INTO BOTH NOSTRILS DAILY, 170, cm, 01/15/20 14:32:00 EDT, Height Start Date: 03/25/20 Status: Orderedhydrochlorothiazide-losartan 12.5 mg-100 mg oral tablet See Instructions, TAKE 1 TABLET BY MOUTH EVERY DAY, # 90 tablet, 3 Refills, Soft Stop, 01/02/20 13:12:00 EDT, [facility]/pharmacy #[id number], TAKE 1 TABLET BY MOUTH EVERY DAY, 170, cm, 04/18/19 13:58:00 EDT, Height Start Date: 01/02/20 Status: OrderedImodium A-D 2 mg oral tablet See Instructions, 0.5 tablet By mouth daily on Wednesday, Wednesday and Wednesday, # 12 tablet, Refills 3,Tot. Refills 3, Maintenance, 07/20/18 10:28:09 EST, Instructions Replace Required Details, Route to Pharmacy Electronically, [id number]... Start Date: 07/20/18 Status: Orderedlithium 450 mg oral tablet, extended release 1 tablet, By Mouth, Daily, # 90 tablet, 1 Refills, Maintenance, 05/10/20 9:15:00 EDT, [facility] STORE [id number], 170, cm, 04/25/20 14:26:00 EDT, Height Start Date: 05/10/20 Status: OrderedMetoprolol Tartrate 50 mg oral tablet 1 tablet = 50 mg, By Mouth, 2 times a day, # 180 tablet, 1 Refills, Soft Stop, 07/29/20 10:27:00 EST, [facility]/pharmacy #[id number], 170, cm, 06/14/20 6:52:00 EST, Height Start Date: 07/29/20 Status: Ordered Problem List Condition Effective Dates [...]
--- OUTSIDE RECORDS SUMMARY | 2022-05-22 21:53 | XMS_ITS | Continuity of Care Document ---
:1960 Author Organization [facility] Adult Address [address] [place] [address]- Care Team Providers Name Role Phone Annetta Zambrano NP Primary Care Physician [place] [facility] [place]11/20 - 12/11/20 [facility] [address] [place] [address]- Allergies, Adverse Reactions, Alerts Substance Reaction Severity [...] Inactive (IM) (oldterm)6 05/18/08 Given 1Result Comment: [facility]: [id number] EXP: [id number] Comment: [04/19/2017] radha [facility] [phone] Note: VIS [id number] Note: VIS [id number] Note: BIOMEDICAL LELA given by [id number] Note: given in clinic Medications citalopram 20 mg oral tablet 20 mg, 1, tablet, By Mouth, Daily, # 90 tablet, Refills 1, Tot. Refills 1, Maintenance, 11/11/20 16:11:00 EDT, Route to Pharmacy Electronically, [facility]/pharmacy #[id number], 170, cm, 10/31/20 14:37:00 EDT, Height Start Date: 11/11/20 Status: Orderedezetimibe 10 mg oral tablet 1 tablet = 10 mg, By Mouth, Daily at bedtime, # 30 tablet, 3 Refills, Maintenance, 10/31/20 14:59:00EDT, Tablet, [facility]/pharmacy #[id number], Partial fill upon patient request if the prescription is for a schedule II opioid drug., 170, cm, 10/31/20 14:37:00 E... Start Date: 10/31/20 Status: Orderedfluticasone 50 mcg/inh nasal spray See Instructions, TAKE 2 SPRAYS INTO BOTH NOSTRILS DAILY, # 48 mL, 1 Refills, Soft Stop, 03/25/20 21:36:00 EDT, [facility]/pharmacy #[id number], TAKE 2 SPRAYS INTO BOTH NOSTRILS DAILY, 170, cm, 01/15/20 14:32:00 EDT, Height Start Date: 03/25/20 Status: Orderedhydrochlorothiazide-losartan 12.5 mg-100 mg oral tablet See Instructions, TAKE 1 TABLET BY MOUTH EVERY DAY, # 90 tablet, 1 Refills, Soft Stop, 11/11/20 16:11:00 EDT, [facility]/pharmacy #[id number], TAKE 1 TABLET BY MOUTH EVERY DAY, 170, cm, 10/31/20 14:37:00 EDT, Height Start Date: 11/11/20 Status: OrderedImodium A-D 2 mg oral tablet See Instructions, 0.5 tablet By mouth daily on Wednesday, Wednesday and Wednesday, # 12 tablet, Refills 3,Tot. Refills 3, Maintenance, 07/20/18 10:28:09 EST, Instructions Replace Required Details, Route to Pharmacy Electronically, [id number]... Start Date: 07/20/18 Status: Orderedlithium 450 mg oral tablet, extended release 1 tablet, By Mouth, Daily, # 90 tablet, 1 Refills, Maintenance, 11/12/20 14:00:00 EDT, [facility]/pharmacy #[id number], 170, cm, 10/31/20 14:37:00 EDT, Height Start Date: 11/12/20 Status: OrderedMetoprolol Tartrate 50 mg oral tablet 1 tablet = 50 mg, By Mouth, 2 times a day, # 180 tablet, 1 Refills, Soft Stop, 07/29/20 10:27:00 EST, [facility]/pharmacy #[id number], 170, cm, 06/14/20 6:52:00 EST, Height Start Date: 07/29/20 Status: OrderedrisperiDONE 2 mg oral tablet 2 mg, 1, tablet, By Mouth, Daily at bedtime, TAKE 1 TABLET BY MOUTH EVERYDAY AT BEDTIME, # 90 tablet, Refills 1, Tot. Refills 1, Maintenance, 11/12/20 14:00:00 EDT, Route to Pharmacy Electronically, [facility]/pharmacy #[id number], Partial fill upon patient reques... [...]
--- OUTSIDE RECORDS SUMMARY | 2022-05-22 21:53 | XMS_ITS | Continuity of Care Document ---
:1960 Author Organization [facility] Adult Address [address] [place] [address]- Care Team Providers Name Role Phone Annetta Zambrano NP Primary Care Physician Encounter [facility] [place] Date(s): 10/11/20 - 11/10/20 [facility] [address] [place] [address]- Allergies, Adverse Reactions, Alerts Substance Reaction Severity [...] Inactive (IM) (oldterm)6 05/18/08 Given 1Result Comment: [facility]: [id number] EXP: [id number] Comment: [04/19/2017] radha [facility] [phone] Note: VIS [id number] Note: VIS [id number] Note: BIOMEDICAL LELA given by [id number] Note: given in clinic Medications citalopram 20 mg oral tablet 20 mg, 1, tablet, By Mouth, Daily, # 90 tablet, Refills 3, Tot. Refills 3, Maintenance, 01/02/20 14:57:00 EDT, Route to Pharmacy Electronically, [facility]/pharmacy #[id number], 170, cm, 04/18/19 13:58:00 EDT, Height Start Date: 01/02/20 Status: Orderedezetimibe 10 mg oral tablet 1 tablet = 10 mg, By Mouth, Daily at bedtime, # 30 tablet, 3 Refills, Maintenance, 10/31/20 14:59:00EDT, Tablet, [facility]/pharmacy #[id number], Partial fill upon patient request if the prescription is for a schedule II opioid drug., 170, cm, 10/31/20 14:37:00 E... Start Date: 10/31/20 Status: Orderedfluticasone 50 mcg/inh nasal spray See Instructions, TAKE 2 SPRAYS INTO BOTH NOSTRILS DAILY, # 48 mL, 1 Refills, Soft Stop, 03/25/20 21:36:00 EDT, [facility]/pharmacy #[id number], TAKE 2 SPRAYS INTO BOTH NOSTRILS DAILY, 170, cm, 01/15/20 14:32:00 EDT, Height Start Date: 03/25/20 Status: Orderedhydrochlorothiazide-losartan 12.5 mg-100 mg oral tablet See Instructions, TAKE 1 TABLET BY MOUTH EVERY DAY, # 90 tablet, 3 Refills, Soft Stop, 01/02/20 13:12:00 EDT, [facility]/pharmacy #[id number], TAKE 1 TABLET BY MOUTH EVERY DAY, 170, cm, 04/18/19 13:58:00 EDT, Height Start Date: 01/02/20 Status: OrderedImodium A-D 2 mg oral tablet See Instructions, 0.5 tablet By mouth daily on Wednesday, Wednesday and Wednesday, # 12 tablet, Refills 3,Tot. Refills 3, Maintenance, 07/20/18 10:28:09 EST, Instructions Replace Required Details, Route to Pharmacy Electronically, [id number]... Start Date: 07/20/18 Status: Orderedlithium 450 mg oral tablet, extended release 1 tablet, By Mouth, Daily, # 90 tablet, 1 Refills, Maintenance, 05/10/20 9:15:00 EDT, [facility] STORE [facility]54, 170, cm, 04/25/20 14:26:00 EDT, Height Start Date: 10/9/20 Status: OrderedMetoprolol Tartrate 50 mg oral tablet 1 tablet = 50 mg, By Mouth, 2 times a day, # 180 tablet, 1 Refills, Soft Stop, 07/29/20 10:27:00 EST, [facility]/pharmacy #[id number], 170, cm, 06/14/20 6:52:00 EST, Height Start Date: 07/29/20 Status: OrderedrisperiDONE 2 mg oral tablet TAKE 1 TABLET BY MOUTH EVERYDAY AT BEDTIME Start Date: 10/31/20 Status: Ordered Problem List Condition Effective Dates [...]
--- OUTSIDE RECORDS SUMMARY | 2022-05-22 21:53 | XMS_ITS | Continuity of Care Document ---
:1960 Author Organization [facility] [place] [address], [address] [place] [address]- Care Team Providers Name Role Phone Juan Manuel OROZCO, Annetta Primary Care Physician Encounter 03/06/20 - 03/13/20 [facility] [address], [address] [place] [address]- [facility] Attending Physician: Annetta Zambrano NP Admitting Physician: Juan Manuel OROZCO, Annetta Referring Physician: Annetta Zambrano NP Allergies, Adverse [...] 05/18/08 Given 1Result Comment: [04/19/2017] FISH garcia [phone] Note: VIS [id number] Note: VIS [id number] Note: BIOMEDICAL LELA given by [id number] Note: given in clinic Medications atorvastatin 80 mg oral tablet See Instructions, TAKE 1 TABLET BY MOUTH DAILY, # 30 tablet, 0 Refills, Soft Stop, 02/13/20 13:38:00EDT, [facility]/pharmacy #[id number], 170, cm, 01/15/20 14:32:00 EDT, Height Start Date: 02/13/20 Status: Orderedcitalopram 20 mg oral tablet 20 mg, 1, tablet, By Mouth, Daily, # 90 tablet, Refills 3, Tot. Refills 3, Maintenance, 01/02/20 14:57:00 EDT, [id number] 170, cm, 04/18/19 13:58:00 EDT, Height Start Date: 01/02/20 Status: Orderedfluticasone 50 mcg/inh nasal spray See Instructions, TAKE 2 SPRAYS INTO BOTH NOSTRILS DAILY, # 48 mL, 1 Refills, Soft Stop, 09/21/19 15:50:00 EST, [facility]/pharmacy #[id number], TAKE 2 SPRAYS INTO BOTH NOSTRILS DAILY, 170, cm, 04/18/19 13:58:00 EDT, Height Start Date: 09/21/19 Status: Orderedhydrochlorothiazide-losartan 12.5 mg-100 mg oral tablet See Instructions, TAKE 1 TABLET BY MOUTH EVERY DAY, # 90 tablet, 3 Refills, Soft Stop, 01/02/20 13:12:00 EDT, [facility]/pharmacy #[id number], TAKE 1 TABLET BY MOUTH EVERY DAY, 170, cm, 04/18/19 13:58:00 EDT, Height Start Date: 01/02/20 Status: OrderedImodium A-D 2 mg oral tablet See Instructions, 0.5 tablet By mouth daily on Wednesday, Wednesday and Wednesday, # 12 tablet, Refills 3,Tot. Refills 3, Maintenance, 07/20/18 10:28:09 EST, Instructions Replace Required Details, Route to Pharmacy Electronically, [id number]... Start Date: 07/20/18 Status: Orderedlithium 450 mg oral tablet, extended release See Instructions, TAKE 1 TABLET BY MOUTH EVERY DAY, # 90 tablet, 1 Refills, Soft Stop, 11/13/19 12:43:00 EDT, [facility]/pharmacy #[id number], 170, cm, 04/18/19 13:58:00 EDT, Height [...] 0 Refills, Soft Stop, 07/24/19 8:10:00 EST, [facility]/pharmacy #[id number], 170, cm, 04/18/19 13:58:00 EDT, Height Start Date: 07/24/19 Status: OrderedRisperDAL 2 mg oral tablet 2 mg, 1, tablet, By Mouth, Daily at bedtime, # 90 tablet, Refills 3, Tot. Refills 3, Maintenance, 01/02/20 15:00:00 EDT, Route to Pharmacy Electronically, [facility]/pharmacy #[id number], DOSE INCREASE; D/C RISPERIDONE 1 MG, [...]
--- OUTSIDE RECORDS SUMMARY | 2022-05-22 21:53 | XMS_ITS | Continuity of Care Document ---
:1960 Author Organization [facility] Address [address] [place] [address]- Care Team Providers Name Role Phone Annetta Zambrano NP Primary Care Physician Encounter [facility] Date(s): 07/31/20 - 08/07/20 [facility] [address] [place] [address]- Encounter Diagnosis Hypertension (Discharge Diagnosis) - 07/31/20 Hypercholesterolemia (Discharge Diagnosis) - 07/31/20 Tobacco abuse (Discharge Diagnosis) - 07/31/20 Diarrhea (Discharge Diagnosis) - 07/31/20 Agitated depression (Discharge Diagnosis) - 07/31/20 Attending Physician: Not on Staff, Attending MD [...] Inactive (IM) (oldterm)6 05/18/08 Given 1Result Comment: [facility]: [id number] EXP: [id number] Comment: [04/19/2017] FISH garcia [id number] Note: VIS [id number] Note: VIS [id number] Note: BIOMEDICAL LELA given by [email or web address] Note: given in clinic Medications citalopram 20 mg oral tablet 20 mg, 1, tablet, By Mouth, Daily, # 90 tablet, Refills 3, Tot. Refills 3, Maintenance, 01/02/20 14:57:00 EDT, Route to Pharmacy Electronically, [facility]/pharmacy #[id number], 170, cm, 04/18/19 13:58:00 EDT, Height Start Date: 01/02/20 Status: Orderedfluticasone 50 mcg/inh nasal spray See Instructions, TAKE 2 SPRAYS INTO BOTH NOSTRILS DAILY, # 48 mL, 1 Refills, Soft Stop, 03/25/20 21:36:00 EDT, [facility]/pharmacy #[id number], TAKE 2 SPRAYS INTO BOTH NOSTRILS DAILY, 170, cm, 01/15/20 14:32:00 EDT, Height Start Date: 03/25/20 Status: Orderedhydrochlorothiazide-losartan 12.5 mg-100 mg oral tablet See Instructions, TAKE 1 TABLET BY MOUTH EVERY DAY, # 90 tablet, 3 Refills, Soft Stop, 01/02/20 13:12:00 EDT, [facility]/pharmacy #[id number], TAKE 1 TABLET BY MOUTH EVERY DAY, 170, cm, 04/18/19 13:58:00 EDT, Height Start Date: 01/02/20 Status: OrderedImodium A-D 2 mg oral tablet See Instructions, 0.5 tablet By mouth daily on Wednesday, Wednesday and Wednesday, # 12 tablet, Refills 3,Tot. Refills 3, Maintenance, 07/20/18 10:28:09 EST, Instructions Replace Required Details, Route to Pharmacy Electronically, [id number]... Start Date: 07/20/18 Status: Orderedlithium 450 mg oral tablet, extended release 1 tablet, By Mouth, Daily, # 90 tablet, 1 Refills, Maintenance, 05/10/20 9:15:00 EDT, [facility] STORE 28364, 170, cm, 04/25/20 14:26:00 EDT, Height Start Date: 05/10/20 Status: OrderedMetoprolol Tartrate 50 mg oral tablet 1 tablet = 50 mg, By Mouth, 2 times a day, # 180 tablet, 1 Refills, Soft Stop, 07/29/20 10:27:00 EST, [facility]/pharmacy #[id number], 170, cm, 06/14/20 6:52:00 EST, Height [...] Dates Health Clinical Infor mant Status Service Hypertension Discharge 07/31/20 Diagnosis Hypercholesterolemia Discharge 07/31/20 Diagnosis Tobacco abuse Discharge 07/31/20 Diagnosis Diarrhea Discharge 07/31/20 Diagnosis Agitated depression Discharge 07/31/20 Diagnosis Vital Signs Most recent to oldest [Reference Range]: 1 Height 170 cm (07/31/20 6:57 AM) Weight 61.8 kg (07/31/20 6:57 AM) Oxygen Saturation [94-100 %] 99 % (07/31/20 6:57 AM) Pulse Rate [55-90 bpm] 58 bpm (07/31/20 6:57 AM) Body Mass Index [18.5-24.99] 21.38 (07/31/20 6:57 AM) Blood Pressure [90-138/55-84 mm Hg] 132/68 mm Hg (07/31/20 6:57 AM) Respiratory Rate [16-30 br/min] 12 br/min *L* (07/31/20 6:57 AM) Temperature [96.8-100.4 DegF] 97.7 DegF (07/31/20 6:57 AM) Mode of Delivery (Oxygen) Room air (07/31/20 6:57 AM) Blood pressure sites Arm, right (07/31/20 6:57 AM) Temperature Route Oral (07/31/20 6:57 AM) Weight Obtained Via Standing scale (07/31/20 6:57 AM) Social History Social History Type Response Smoking Status 10 or more cigarettes (1/2 p ack or more)/day in last 30 days; Other: 1ppd, 48yrs; entered on: 01/15/20 Sex
--- OUTSIDE RECORDS SUMMARY | 2022-05-22 21:53 | XMS_ITS | Continuity of Care Document ---
:1960 Author Organization [facility] Adult Address [address] [place] [address]- Care Team Providers Name Role Phone Annetta Zambrano NP Primary Care Physician Encounter [facility] Date(s): 03/25/20 - 04/24/20 [facility] [address] [place] [address]- [facility] Allergies, Adverse Reactions, Alerts Substance Reaction Severity [...] (oldterm)5 05/18/08 Given 1Result Comment: [04/19/2017] radha [facility] [id number] Note: VIS [id number] Note: VIS [id number] Note: BIOMEDICAL LELA given by [email or web address] Note: given in clinic Medications atorvastatin 80 [...] 1 Refills, Soft Stop, 03/25/20 21:36:00 EDT, [facility]/pharmacy #[id number], TAKE 2 [...] Replace Required Details, Route to Pharmacy Electronically, [id number]... Start Date: 07/20/18 Status: Orderedlithium 450 mg [...] 1 Refills, Soft Stop, 04/01/20 15:13:00 EDT, [facility]/pharmacy #[id number], 170, cm, 01/15/20 14:32:00 EDT, [...]
--- OUTSIDE RECORDS SUMMARY | 2022-05-22 21:53 | XMS_ITS | Continuity of Care Document ---
:1960 Author Organization [facility] Adult Address [address] [place] [address]- Care Team Providers Name Role Phone Annetta Zambrano NP Primary Care Physician Encounter [facility] [place] Date(s): 02/12/20 - 03/13/20 [facility] [address] [place] [address]- [facility] Allergies, Adverse Reactions, Alerts Substance Reaction Severity [...] 05/18/08 Given 1Result Comment: [04/19/2017] FISH garcia [phone] Note: VIS [id number] Note: VIS [id number] Note: BIOMEDICAL LELA given by [id number] Note: given in clinic Medications atorvastatin 80 [...] 01/02/20 14:57:00 EDT, Route to Pharmacy Electronically, [facility]/pharmacy #[id number], 170, cm, 04/18/19 13:58:00 EDT, Height Start Date: 01/02/20 Status: Orderedfluticasone 50 mcg/inh nasal spray See Instructions, TAKE 2 SPRAYS INTO BOTH NOSTRILS DAILY, # 48 mL, 1 Refills, Soft Stop, 09/21/19 15:50:00 EST, [facility]/pharmacy #[id number], TAKE 2 SPRAYS INTO BOTH NOSTRILS DAILY, 170, cm, 04/18/19 13:58:00 EDT, Height Start Date: 09/21/19 Status: Orderedhydrochlorothiazide-losartan 12.5 mg-100 mg oral tablet See Instructions, TAKE 1 TABLET BY MOUTH EVERY DAY, # 90 tablet, 3 Refills, Soft Stop, 01/02/20 13:12:00 EDT, [facility]/pharmacy #0693, TAKE 1 TABLET BY MOUTH EVERY DAY, 170, cm, 04/18/19 13:58:00 EDT, Height Start Date: 01/02/20 Status: OrderedImodium A-D 2 mg oral tablet See Instructions, 0.5 tablet By mouth daily on Wednesday, Wednesday and Wednesday, # 12 tablet, Refills 3,Tot. Refills 3, Maintenance, 07/20/18 10:28:09 EST, Instructions Replace Required Details, Route to Pharmacy Electronically, [id number]... Start Date: 07/20/18 Status: Orderedlithium 450 mg oral tablet, extended release See Instructions, TAKE 1 TABLET BY MOUTH EVERY DAY, # 90 tablet, 1 Refills, Soft Stop, 11/13/19 12:43:00 EDT, [facility]/pharmacy #0693, 170, cm, 04/18/19 13:58:00 EDT, Height [...] 0 Refills, Soft Stop, 07/24/19 8:10:00 EST, [facility]/pharmacy #0693, 170, cm, 04/18/19 13:58:00 EDT, Height Start Date: 07/24/19 Status: OrderedRisperDAL 2 mg oral tablet 2 mg, 1, tablet, By Mouth, Daily at bedtime, # 90 tablet, Refills 3, Tot. Refills 3, Maintenance, 01/02/20 15:00:00 EDT, Route to Pharmacy Electronically, [facility]/pharmacy #0693, DOSE INCREASE; D/C RISPERIDONE 1 MG, [...]
--- OUTSIDE RECORDS SUMMARY | 2022-05-22 21:53 | XMS_ITS | Continuity of Care Document ---
:1960 Author Organization [facility] Address [address] [place] [address]- Care Team Providers Name Role Phone Annetta Zambrano NP Primary Care Physician Encounter [facility] Date(s): 06/13/20 - 07/13/20 [facility] [address] [place] [address]- Allergies, Adverse Reactions, Alerts Substance Reaction Severity [...] Inactive (IM) (oldterm)6 05/18/08 Given 1Result Comment: [facility]: [id number] EXP: [id number] Comment: [04/19/2017] radha [facility] [phone] Note: VIS [id number] Note: VIS [id number] Note: BIOMEDICAL LELA given by [id number] Note: given in clinic Medications atorvastatin 80 mg oral tablet See Instructions, TAKE 1 TABLET BY MOUTH DAILY, # 30 tablet, 5 Refills, Soft Stop, 03/14/20 14:51:00EDT, [facility]/pharmacy #[id number], 170, cm, 01/15/20 14:32:00 EDT, Height Start Date: 03/14/20 Status: Orderedcitalopram 20 mg oral tablet 20 mg, 1, tablet, By Mouth, Daily, # 90 tablet, Refills 3, Tot. Refills 3, Maintenance, 01/02/20 14:57:00 EDT, Route to Pharmacy Electronically, [facility]/pharmacy #[id number], 170, cm, 04/18/19 13:58:00 EDT, Height Start Date: 01/02/20 Status: Orderedfluticasone 50 mcg/inh nasal spray See Instructions, TAKE 2 SPRAYS INTO BOTH NOSTRILS DAILY, # 48 mL, 1 Refills, Soft Stop, 03/25/20 21:36:00 EDT, [facility]/pharmacy #[id number], TAKE 2 SPRAYS INTO BOTH NOSTRILS DAILY, 170, cm, 01/15/20 14:32:00 EDT, Height Start Date: 03/25/20 Status: Orderedhydrochlorothiazide-losartan 12.5 mg-100 mg oral tablet See Instructions, TAKE 1 TABLET BY MOUTH EVERY DAY, # 90 tablet, 3 Refills, Soft Stop, 01/02/20 13:12:00 EDT, [facility]/pharmacy #[id number], TAKE 1 TABLET BY MOUTH EVERY DAY, 170, cm, 04/18/19 13:58:00 EDT, Height Start Date: 01/02/20 Status: OrderedImodium A-D 2 mg oral tablet See Instructions, 0.5 tablet By mouth daily on Wednesday, Wednesday and Wednesday, # 12 tablet, Refills 3,Tot. Refills 3, Maintenance, 07/20/18 10:28:09 EST, Instructions Replace Required Details, Route to Pharmacy Electronically, [id number]... Start Date: 07/20/18 Status: Orderedlithium 450 mg oral tablet, extended release 1 tablet, By Mouth, Daily, # 90 tablet, 1 Refills, Maintenance, 05/10/20 9:15:00 EDT, [facility] STORE [id number], 170, cm, 04/25/20 14:26:00 EDT, Height Start [...] 1 Refills, Soft Stop, 04/01/20 15:13:00 EDT, [facility]/pharmacy #[id number], 170, cm, 01/15/20 14:32:00 EDT, Height Start Date: 04/01/20 Status: OrderedRisperDAL 2 mg oral tablet 2 mg, 1, tablet, By Mouth, Daily at bedtime, # 90 tablet, Refills 3, Tot. Refills 3, Maintenance, 01/02/20 15:00:00 EDT, Route to Pharmacy Electronically, [facility]/pharmacy #0693, DOSE INCREASE; D/C RISPERIDONE 1 MG, [...]
--- OUTSIDE RECORDS SUMMARY | 2022-05-22 21:53 | XMS_ITS | Continuity of Care Document ---
:1960 Author Organization [facility] Adult Address [address] [place] [address]- Care Team Providers Name Role Phone Perry OROZCO, Naz Alexander Primary Care Physician Encounter [facility] [place] Date(s): 05/01/22 - 05/08/22 [facility] Adult [address] [place] [address]- Encounter Diagnosis Agitated depression (Discharge Diagnosis) - 05/01/22 Alcohol abuse, in remission (Discharge Diagnosis) - 05/01/22 Insomnia (Discharge Diagnosis) - 05/01/22 Attending Physician: Not on Staff, Attending MD Allergies, Adverse Reactions, Alerts Substance Reaction Severity Status Percocet 5/ Active Chantix1 Active 1projectile vomiting Immunizations Given and Recorded Vaccine Date Status Refusal Reason zoster vaccine, inactivated 04/20/22 Recorded SARS-CoV-2 (COVID-19) mRNA BNT-162b2 vac 07/10/21 Recorde [...] 1Early/Late Reason: Early/Late Reason: Other : NOT [id number] Comment: [id number] Comment: [facility]: [id number] EXP: [id number] Comment: [04/19/2017] radha [facility] [phone] Note: VIS [id number] Note: VIS [id number] Note: BIOMEDICAL LELA given by [id number] Note: given in clinic Medications citalopram 20 mg oral tablet 20 mg, 1, tablet, By Mouth, Daily, # 90 tablet, Refills 3, Tot. Refills 3, Maintenance, 08/12/21 16:53:00 EST, Route to Pharmacy Electronically, [facility]/pharmacy #[id number], 170, cm, 05/22/21 11:26:00 EDT, Height Start Date: 08/12/21 Status: Orderedezetimibe 10 mg oral tablet 1 tablet, By Mouth, Daily at bedtime, # 90 tablet, 3 Refills, Maintenance, 08/26/21 14:16:00 EST, [facility]/pharmacy #[id number], 170, cm, 05/22/21 11:26:00 EDT, Height Start Date: 08/26/21 Status: Orderedfluticasone 50 mcg/inh nasal spray See Instructions, SPRAY 2 SPRAYS INTO BOTH NOSTRILS DAILY, # 48 mL, 1 Refills, [facility] STORE [id number], 90, SPRAY 2 SPRAYS INTO BOTH NOSTRILS DAILY, 170, cm, 12/18/21 7:29:00 EDT, Height Start Date: 02/03/22 Status: Orderedhydrochlorothiazide-losartan 12.5 mg-100 mg oral tablet 1 tablet, By Mouth, Daily, # 30 tablet, 5 Refills, 01/22/22 16:29:00 EDT, [facility]/pharmacy #[id number], 30, 1 tablet By Mouth Daily, 170, cm, 12/18/21 7:29:00 EDT, Height Start Date: 01/22/22 Status: OrderedImodium A-D 2 mg oral tablet See Instructions, 0.5 tablet By mouth daily on Wednesday, Wednesday and Wednesday, # 12 tablet, Refills 3,Tot. Refills 3, Maintenance, 07/20/18 10:28:09 EST, Instructions Replace Required Details, Route to Pharmacy Electronically, [id number]... Start Date: 07/20/18 Status: Orderedlithium 450 mg oral tablet, extended release 1 tablet, By Mouth, Daily, # 90 tablet, 0 Refills, [id number], 170, cm, 12/18/21 7:29:00 EDT, Height Start Date: 03/20/22 Status: OrderedMetoprolol Tartrate 50 mg oral tablet 1 tablet, By Mouth, 2 times a day, # 60 tablet, 5 Refills, [id number], 170, cm, 05/22/21 11:26:00 EDT, Height Start Date: 08/22/21 Status: Orderedmirtazapine 7.5 mg oral tablet 1 tablet = 7.5 mg, By Mouth, Daily at bedtime, # 30 tablet, 3 Refills, Maintenance, 05/01/22 13:02:00 EDT, [facility]/pharmacy #[id number], Partial fill upon patient request if the prescription is for a schedule IIopioid drug., 170, cm, 05/01/22 7:53:00 EDT, Height Start Date: 05/01/22 Status: OrderedrisperiDONE 2 mg oral tablet 1, tablet, By Mouth, Daily at bedtime, # 90 tablet, Refills 0, Maintenance, 05/04/22 7:42:00 EDT, Route to Pharmacy Electronically, [id number], 170, cm, 05/01/22 7:53:00 EDT, Height Start Date: 05/04/22 Status: Ordered Problem List Condition Confirmation Course [...] lentigo Confirmed Active Tobacco abuse Confirmed Active Diagnosis Diagnosis Type Effective Dates Health Clinical Infor mant Status Service Agitated Discharge 05/01/22 depression Diagnosis Alcohol abuse, in Discharge 05/01/22 remission Diagnosis Insomnia Discharge 05/01/22 Diagnosis Vital Signs Most recent to oldest [Reference Range]: 1 Height 170 cm (05/01/22 7:53 AM) Weight 60 kg (05/01/22 7:53 AM) Oxygen Saturation [94-100 %] 99 % (05/01/22 7:53 AM) Pulse Rate [55-90 bpm] 54 bpm *L* (05/01/22 7:53 AM) Body Mass Index [18.5-24.99 kg/m2] 20.76 kg/m2 (05/01/22 7:53 AM) Blood Pressure [90-138/55-84 mm Hg] 117/76 mm Hg (05/01/22 7:53 AM) Temperature [96.8-100.4 DegF] 96.8 DegF (05/01/22 7:53 AM) Blood pressure sites Arm, left (05/01/22 7:53 AM) Temperature Route Temporal (05/01/22 7:53 AM) Weight Obtained Via Standing scale (05/01/22 7:53 AM) Social History Social History Type Response Smoking Status 5-9 cigarettes (between 1/4 to 1/2 pack)/day in last 30 days; Other: 1ppd, 48yrs; entered on: 10/31/20 Sex Patient Care team information PersonnelName: Perry OROZCO, Naz Alexander Address: Address: [address] [place] [id number]
--- OUTSIDE RECORDS SUMMARY | 2022-05-22 21:54 | XMS_ITS | Continuity of Care Document ---
:1960 Author Organization [facility] Adult Address [address] [place] [address]- Care Team Providers Name Role Phone Annetta Zambrano NP Primary Care Physician Encounter [facility] Date(s): 11/18/20 - 11/25/20 [facility] Adult [address] [place] [address]- Encounter Diagnosis Left hip pain (Discharge Diagnosis) - 11/18/20 Attending Physician: Not on Staff, Attending MD [...] Inactive (IM) (oldterm)6 05/18/08 Given 1Result Comment: [facility]: [id number] EXP: [id number] Comment: [04/19/2017] FISH garcia [phone] Note: VIS [id number] Note: VIS [id number] Note: BIOMEDICAL LELA given by [email or web address] Note: given in clinic Medications citalopram 20 mg oral tablet 20 mg, 1, tablet, By Mouth, Daily, # 90 tablet, Refills 1, Tot. Refills 1, Maintenance, 11/11/20 16:11:00 EDT, Route to Pharmacy Electronically, [facility]/pharmacy #[id number], 170, cm, 10/31/20 14:37:00 EDT, Height Start Date: 11/11/20 Status: Orderedezetimibe 10 mg oral tablet 1 tablet = 10 mg, By Mouth, Daily at bedtime, # 30 tablet, 3 Refills, Maintenance, 10/31/20 14:59:00EDT, Tablet, [facility]/pharmacy #[id number], Partial fill upon patient request if the prescription is for a schedule II opioid drug., 170, cm, 10/31/20 14:37:00 E... Start Date: 10/31/20 Status: Orderedfluticasone 50 mcg/inh nasal spray See Instructions, TAKE 2 SPRAYS INTO BOTH NOSTRILS DAILY, # 48 mL, 1 Refills, Soft Stop, 03/25/20 21:36:00 EDT, [facility]/pharmacy #[id number], TAKE 2 SPRAYS INTO BOTH NOSTRILS DAILY, 170, cm, 01/15/20 14:32:00 EDT, Height Start Date: 03/25/20 Status: Orderedhydrochlorothiazide-losartan 12.5 mg-100 mg oral tablet See Instructions, TAKE 1 TABLET BY MOUTH EVERY DAY, # 90 tablet, 1 Refills, Soft Stop, 11/11/20 16:11:00 EDT, [facility]/pharmacy #[id number], TAKE 1 TABLET BY MOUTH EVERY DAY, 170, cm, 10/31/20 14:37:00 EDT, Height Start Date: 11/11/20 Status: OrderedImodium A-D 2 mg oral tablet See Instructions, 0.5 tablet By mouth daily on Wednesday, Wednesday and Wednesday, # 12 tablet, Refills 3,Tot. Refills 3, Maintenance, 07/20/18 10:28:09 EST, Instructions Replace Required Details, Route to Pharmacy Electronically, [id number]... Start Date: 07/20/18 Status: Orderedlithium 450 mg oral tablet, extended release 1 tablet, By Mouth, Daily, # 90 tablet, 1 Refills, Maintenance, 11/12/20 14:00:00 EDT, [facility]/pharmacy #[id number], 170, cm, 10/31/20 14:37:00 EDT, Height Start Date: 11/12/20 Status: OrderedMetoprolol Tartrate 50 mg oral tablet 1 tablet = 50 mg, By Mouth, 2 times a day, # 180 tablet, 1 Refills, Soft Stop, 07/29/20 10:27:00 EST, [facility]/pharmacy #[id number], 170, cm, 06/14/20 6:52:00 EST, Height Start Date: 07/29/20 Status: OrderedrisperiDONE 2 mg oral tablet 2 mg, 1, tablet, By Mouth, Daily at bedtime, TAKE 1 TABLET BY MOUTH EVERYDAY AT BEDTIME, # 90 tablet, Refills 1, Tot. Refills 1, Maintenance, 11/12/20 14:00:00 EDT, Route to Pharmacy Electronically, [facility]/pharmacy #[id number], Partial fill upon patient reques... Start [...] Dates Health Status Clinical In formant Service Left hip pain Discharge 11/18/20 Diagnosis Vital Signs Most recent to oldest [Reference Range]: 1 Height 170 cm (11/18/20 7:13 AM) Weight 62 kg (11/18/20 7:13 AM) Body Mass Index [18.5-24.99] 21.45 (11/18/20 7:13 AM) Blood Pressure [90-138/55-84 mm Hg] 134/80 mm Hg (11/18/20 7:13 AM) Temperature [96.8-100.4 DegF] 98.8 DegF (11/18/20 7:13 AM) Social History Social History Type Response Smoking Status 5-9 cigarettes (between 1/4 to 1/2 pack)/day in last 30 days; Other: 1ppd, 48yrs; entered on: 10/31/20 Sex
--- OUTSIDE RECORDS SUMMARY | 2022-05-22 21:54 | XMS_ITS | Continuity of Care Document ---
:1960 Author Organization [facility] Adult Address [address] [place] [address]- Care Team Providers Name Role Phone Annetta Zambrano NP Primary Care Physician Encounter [facility] [place] Date(s): 11/18/20 - 12/18/20 [facility] [address] [place] [address]- Encounter Diagnosis Bipolar 2 disorder (Discharge Diagnosis) [...] Inactive (IM) (oldterm)6 05/18/08 Given 1Result Comment: [facility]: [id number] EXP: [id number] Comment: [04/19/2017] FISH garcia [phone] Note: VIS [id number] Note: VIS [id number] Note: BIOMEDICAL LELA given by [id number] Note: given in clinic Medications citalopram 20 mg oral tablet 20 mg, 1, tablet, By Mouth, Daily, # 90 tablet, Refills 1, Tot. Refills 1, Maintenance, 11/11/20 16:11:00 EDT, Route to Pharmacy Electronically, [facility]/pharmacy #[id number], 170, cm, 10/31/20 14:37:00 EDT, Height Start Date: 11/11/20 Status: Orderedezetimibe 10 mg oral tablet 1 tablet = 10 mg, By Mouth, Daily at bedtime, # 30 tablet, 3 Refills, Maintenance, 10/31/20 14:59:00EDT, Tablet, [facility]/pharmacy #[id number], Partial fill upon patient request if the prescription is for a schedule II opioid drug., 170, cm, 10/31/20 14:37:00 E... Start Date: 10/31/20 Status: Orderedfluticasone 50 mcg/inh nasal spray See Instructions, TAKE 2 SPRAYS INTO BOTH NOSTRILS DAILY, # 48 mL, 1 Refills, Soft Stop, 03/25/20 21:36:00 EDT, [facility]/pharmacy #[id number], TAKE 2 SPRAYS INTO BOTH NOSTRILS DAILY, 170, cm, 01/15/20 14:32:00 EDT, Height Start Date: 03/25/20 Status: Orderedhydrochlorothiazide-losartan 12.5 mg-100 mg oral tablet See Instructions, TAKE 1 TABLET BY MOUTH EVERY DAY, # 90 tablet, 1 Refills, Soft Stop, 11/11/20 16:11:00 EDT, [facility]/pharmacy #[id number], TAKE 1 TABLET BY MOUTH EVERY DAY, 170, cm, 10/31/20 14:37:00 EDT, Height Start Date: 11/11/20 Status: OrderedImodium A-D 2 mg oral tablet See Instructions, 0.5 tablet By mouth daily on Wednesday, Wednesday and Wednesday, # 12 tablet, Refills 3,Tot. Refills 3, Maintenance, 07/20/18 10:28:09 EST, Instructions Replace Required Details, Route to Pharmacy Electronically, [id number]... Start Date: 07/20/18 Status: Orderedlithium 450 mg oral tablet, extended release 1 tablet, By Mouth, Daily, # 90 tablet, 1 Refills, Maintenance, 11/12/20 14:00:00 EDT, [facility]/pharmacy #[id number], 170, cm, 10/31/20 14:37:00 EDT, Height Start Date: 11/12/20 Status: OrderedMetoprolol Tartrate 50 mg oral tablet 1 tablet = 50 mg, By Mouth, 2 times a day, # 180 tablet, 1 Refills, Soft Stop, 07/29/20 10:27:00 EST, [facility]/pharmacy #[id number], 170, cm, 06/14/20 6:52:00 EST, Height Start Date: 07/29/20 Status: OrderedrisperiDONE 2 mg oral tablet 2 mg, 1, tablet, By Mouth, Daily at bedtime, TAKE 1 TABLET BY MOUTH EVERYDAY AT BEDTIME, # 90 tablet, Refills 1, Tot. Refills 1, Maintenance, 11/12/20 14:00:00 EDT, Route to Pharmacy Electronically, [facility]/pharmacy #[id number], Partial fill upon patient reques... Start [...]
--- OUTSIDE RECORDS SUMMARY | 2022-05-22 21:54 | XMS_ITS | Continuity of Care Document ---
:1960 Author Organization [facility] Adult Address [address] [place] [address]- Care Team Providers Name Role Phone Not on Staff, PCP Primary Care Physician Unavailable Encounter [facility] Date(s): 05/22/21 - 05/29/21 [facility] [address] [place] [address]- Attending Physician: Fidel Umana MD Allergies, Adverse Reactions, Alerts Substance Reaction [...] 1Early/Late Reason: Early/Late Reason: Other : NOT [id number] Comment: [id number] Comment: [facility]: [id number] EXP: [id number] Comment: [04/19/2017] radha [facility] [id number] Note: VIS [id number] Note: VIS [id number] Note: BIOMEDICAL LELA given by [id number] Note: given in clinic Medications citalopram 20 mg oral tablet 20 mg, 1, tablet, By Mouth, Daily, # 30 tablet, Refills 1, Tot. Refills 1, Maintenance, 05/20/21 9:17:00 EDT, [id number] 170, cm, 01/29/21 10:12:00 EDT, Height Start Date: 05/20/21 Status: Orderedezetimibe 10 mg oral tablet 1 tablet, By Mouth, Daily at bedtime, # 30 tablet, 1 Refills, Maintenance, 05/20/21 9:20:00 EDT, [facility]/pharmacy #[id number], 170, cm, 01/29/21 10:12:00 EDT, Height Start Date: 05/20/21 Status: Orderedfluticasone 50 mcg/inh nasal spray See Instructions, TAKE 2 SPRAYS INTO BOTH NOSTRILS DAILY, # 48 mL, 1 Refills, Maintenance, [facility] [id number], 90, TAKE 2 SPRAYS INTO BOTH NOSTRILS DAILY, 170, cm, 11/18/20 7:13:00 EDT, Height Start Date: 01/26/21 Status: Orderedhydrochlorothiazide-losartan 12.5 mg-100 mg oral tablet See Instructions, TAKE 1 TABLET BY MOUTH EVERY DAY, # 30 tablet, 1 Refills, Soft Stop, 05/20/21 9:19:00 EDT, [facility]/pharmacy #[id number], TAKE 1 TABLET BY MOUTH EVERY DAY, 170, cm, 01/29/21 10:12:00 EDT, Height Start Date: 05/20/21 Status: OrderedImodium A-D 2 mg oral tablet See Instructions, 0.5 tablet By mouth daily on Wednesday, Wednesday and Wednesday, # 12 tablet, Refills 3,Tot. Refills 3, Maintenance, 07/20/18 10:28:09 EST, Instructions Replace Required Details, Route to Pharmacy Electronically, [id number]... Start Date: 07/20/18 Status: Orderedlithium 450 mg oral tablet, extended release 1 tablet, By Mouth, Daily, # 30 tablet, 1 Refills, Maintenance, 05/20/21 9:17:00 EDT, [facility]/pharmacy #[id number], 170, cm, 01/29/21 10:12:00 EDT, Height [...] 05/20/21 9:19:00 EDT, Route to Pharmacy Electronically, [facility]/pharmacy #[id number], Partial fill upon patient request... Start [...] Active Tobacco abuse(Confirmed) Active Viral URI(Confirmed) Active Vital Signs Most recent to oldest [Reference Range]: 1 2 Height 170 cm 170 cm (05/22/21 11:26 AM) (05/22/21 11:23 AM) Weight 62.3 kg (05/22/21 11:23 AM) Oxygen Saturation [94-100 %] 97 % (05/22/21 11:23 AM) Pulse Rate [55-90 bpm] 65 bpm (05/22/21 11:23 AM) Body Mass Index [18.5-24.99] 21.56 (05/22/21 11:23 AM) Blood Pressure [90-138/55-84 mm Hg] 137/85 mm Hg 129/ 78 mm Hg (05/22/21 11: AM) (05/22/21 11:23 AM) Mode of Delivery (Oxygen) Room air (05/22/21 11: AM) Blood pressure sites Arm, left Arm, left (05/22/21 11:26 AM) (05/22/21 11:23 AM) Temperature Route Oral (05/22/21 11: AM) Weight Obtained Via Standing scale (05/22/21 11:23 AM) Social History Social History Type Response Smoking Status 5-9 cigarettes (between 1/4 to 1/2 pack)/day in last 30 days; Other: 1ppd, 48yrs; entered on: 10/31/20 Sex
--- OUTSIDE RECORDS SUMMARY | 2022-05-22 21:54 | XMS_ITS | Continuity of Care Document ---
:1960 Author Organization [facility] Adult Address [address] [place] [address]- Care Team Providers Name Role Phone Fidel Umana MD Primary Care Physician Encounter [facility] Date(s): 05/22/21 - 06/21/21 [facility] [address] [place] [address]- Encounter Diagnosis Bipolar 2 disorder (Discharge Diagnosis) [...] (oldterm) 11/01/08 Given Influenza Inactive (IM) (oldterm)8 10/17/08 Given 1Early/Late Reason: Early/Late Reason: Other : NOT [id number] Comment: [id number] Comment: [facility]: [id number] EXP: [id number] Comment: [04/19/2017] radha [facility] [phone] Note: VIS [id number] Note: VIS [id number] Note: BIOMEDICAL LELA given by [id number] Note: given in clinic Medications citalopram 20 mg oral tablet 20 mg, 1, tablet, By Mouth, Daily, # 30 tablet, Refills 1, Tot. Refills 1, Maintenance, 05/20/21 9:17:00 EDT, [id number], cm, 01/29/21 10:12:00 EDT, Height Start Date: 05/20/21 Status: Orderedezetimibe 10 mg oral tablet 1 tablet, By Mouth, Daily at bedtime, # 30 tablet, 1 Refills, Maintenance, 05/20/21 9:20:00 EDT, [facility]/pharmacy #[id number], 170, cm, 01/29/21 10:12:00 EDT, Height Start Date: 05/20/21 Status: Orderedfluticasone 50 mcg/inh nasal spray See Instructions, TAKE 2 SPRAYS INTO BOTH NOSTRILS DAILY, # 48 mL, 1 Refills, Maintenance, [facility] [id number], 90, TAKE 2 SPRAYS INTO BOTH NOSTRILS DAILY, 170, cm, 11/18/20 7:13:00 EDT, Height Start Date: 01/26/21 Status: Orderedhydrochlorothiazide-losartan 12.5 mg-100 mg oral tablet See Instructions, TAKE 1 TABLET BY MOUTH EVERY DAY, # 30 tablet, 1 Refills, Soft Stop, 05/20/21 9:19:00 EDT, [facility]/pharmacy #[id number], TAKE 1 TABLET BY MOUTH EVERY DAY, 170, cm, 01/29/21 10:12:00 EDT, Height Start Date: 05/20/21 Status: OrderedImodium A-D 2 mg oral tablet See Instructions, 0.5 tablet By mouth daily on Wednesday, Wednesday and Wednesday, # 12 tablet, Refills 3,Tot. Refills 3, Maintenance, 07/20/18 10:28:09 EST, Instructions Replace Required Details, Route to Pharmacy Electronically, [id number]... Start Date: 07/20/18 Status: Orderedlithium 450 mg oral tablet, extended release 1 tablet, By Mouth, Daily, # 30 tablet, 1 Refills, Maintenance, 05/20/21 9:17:00 EDT, [facility]/pharmacy #[id number], 170, cm, 01/29/21 10:12:00 [...] 05/20/21 9:19:00 EDT, Route to Pharmacy Electronically, [facility]/pharmacy #[id number], Partial fill upon [...]
--- OUTSIDE RECORDS SUMMARY | 2022-05-22 21:54 | XMS_ITS | Continuity of Care Document ---
:1960 Author Organization [facility] Address [address] [place] [address]- Care Team Providers Name Role Phone Annetta Zambrano NP Primary Care Physician Encounter [facility] Date(s): 06/18/20 - 07/18/20 [facility] [address] [place] [address]- Allergies, Adverse Reactions, Alerts Substance Reaction Severity [...] Inactive (IM) (oldterm)6 05/18/08 Given 1Result Comment: [facility]: [id number] EXP: [id number] Comment: [04/19/2017] radha [facility] [id number] Note: VIS [id number] Note: VIS [id number] Note: BIOMEDICAL LELA given by [id number] Note: given in clinic Medications atorvastatin 80 mg oral tablet See Instructions, TAKE 1 TABLET BY MOUTH DAILY, # 30 tablet, 5 Refills, Soft Stop, 03/14/20 14:51:00EDT, [facility]/pharmacy #[id number], 170, cm, 01/15/20 14:32:00 EDT, Height Start Date: 03/14/20 Status: Orderedcitalopram 20 mg oral tablet 20 mg, 1, tablet, By Mouth, Daily, # 90 tablet, Refills 3, Tot. Refills 3, Maintenance, 01/02/20 14:57:00 EDT, Route to Pharmacy Electronically, [facility]/pharmacy #[id number], 170, cm, 04/18/19 13:58:00 EDT, Height Start Date: 01/02/20 Status: Orderedfluticasone 50 mcg/inh nasal spray See Instructions, TAKE 2 SPRAYS INTO BOTH NOSTRILS DAILY, # 48 mL, 1 Refills, Soft Stop, 03/25/20 21:36:00 EDT, [facility]/pharmacy #[id number], TAKE 2 SPRAYS INTO BOTH NOSTRILS DAILY, 170, cm, 01/15/20 14:32:00 EDT, Height Start Date: 03/25/20 Status: Orderedhydrochlorothiazide-losartan 12.5 mg-100 mg oral tablet See Instructions, TAKE 1 TABLET BY MOUTH EVERY DAY, # 90 tablet, 3 Refills, Soft Stop, 01/02/20 13:12:00 EDT, [facility]/pharmacy #[id number], TAKE 1 TABLET BY MOUTH EVERY DAY, 170, cm, 04/18/19 13:58:00 EDT, Height Start Date: 01/02/20 Status: OrderedImodium A-D 2 mg oral tablet See Instructions, 0.5 tablet By mouth daily on Wednesday, Wednesday and Wednesday, # 12 tablet, Refills 3,Tot. Refills 3, Maintenance, 07/20/18 10:28:09 EST, Instructions Replace Required Details, Route to Pharmacy Electronically, [id number]... Start Date: 07/20/18 Status: Orderedlithium 450 mg oral tablet, extended release 1 tablet, By Mouth, Daily, # 90 tablet, 1 Refills, Maintenance, 05/10/20 9:15:00 EDT, [facility] STORE [id number], 170, cm, 04/25/20 14:26:00 EDT, Height Start [...] 1 Refills, Soft Stop, 04/01/20 15:13:00 EDT, [facility]/pharmacy #[id number], 170, cm, 01/15/20 14:32:00 EDT, Height Start Date: 04/01/20 Status: OrderedRisperDAL 2 mg oral tablet 2 mg, 1, tablet, By Mouth, Daily at bedtime, # 90 tablet, Refills 3, Tot. Refills 3, Maintenance, 01/02/20 15:00:00 EDT, Route to Pharmacy Electronically, [facility]/pharmacy #[id number], DOSE INCREASE; D/C RISPERIDONE 1 [...]
--- OUTSIDE RECORDS SUMMARY | 2022-05-22 21:54 | XMS_ITS | Continuity of Care Document ---
:1960 Author Organization [facility] Adult Address [address] [place] [address]- Care Team Providers Name Role Phone Annetta Zambrano NP Primary Care Physician Encounter [facility] Date(s): 10/31/20 - 11/07/20 [facility] Adult [address] [place] [address]- Encounter Diagnosis Hypercholesterolemia (Discharge Diagnosis) - 11/01/20 Hypertension (Discharge Diagnosis) - 11/01/20 COPD NOS (Discharge Diagnosis) - 11/01/20 Tobacco abuse (Discharge Diagnosis) - 11/01/20 Leg cramps (Discharge Diagnosis) - 11/01/20 Dyspnea on exertion (Discharge Diagnosis) - 11/01/20 Attending Physician: Annetta Zambrano NP Referring Physician: Fidel Umana MD Allergies, Adverse Reactions, [...] [facility]: [id number] EXP: [id number] Comment: [04/19/2017] [facility] [id number] Note: VIS [id number] Note: VIS [id number] Note: BIOMEDICAL LLEA given by [id number] Note: given in clinic Medications citalopram 20 mg oral tablet 20 mg, 1, tablet, By Mouth, Daily, # 90 tablet, Refills 3, Tot. Refills 3, Maintenance, 01/02/20 14:57:00 EDT, Route to Pharmacy Electronically, [facility]/pharmacy #[id number], 170, cm, 04/18/19 13:58:00 EDT, Height Start Date: 01/02/20 Status: Orderedezetimibe 10 mg oral tablet 1 tablet = 10 mg, By Mouth, Daily at bedtime, # 30 tablet, 3 Refills, Maintenance, 10/31/20 14:59:00EDT, Tablet, [facility]/pharmacy #[id number], Partial fill upon patient request if the prescription is for a schedule II opioid drug., 170, cm, 10/31/20 14:37:00 E... Start Date: 10/31/20 Status: Orderedfluticasone 50 mcg/inh nasal spray See Instructions, TAKE 2 SPRAYS INTO BOTH NOSTRILS DAILY, # 48 mL, 1 Refills, Soft Stop, 03/25/20 21:36:00 EDT, [facility]/pharmacy #[id number], TAKE 2 SPRAYS INTO BOTH NOSTRILS DAILY, 170, cm, 01/15/20 14:32:00 EDT, Height Start Date: 03/25/20 Status: Orderedhydrochlorothiazide-losartan 12.5 mg-100 mg oral tablet See Instructions, TAKE 1 TABLET BY MOUTH EVERY DAY, # 90 tablet, 3 Refills, Soft Stop, 01/02/20 13:12:00 EDT, [facility]/pharmacy #[id number], TAKE 1 TABLET BY MOUTH EVERY DAY, 170, cm, 04/18/19 13:58:00 EDT, Height Start Date: 01/02/20 Status: OrderedImodium A-D 2 mg oral tablet See Instructions, 0.5 tablet By mouth daily on Wednesday, Wednesday and Wednesday, # 12 tablet, Refills 3,Tot. Refills 3, Maintenance, 07/20/18 10:28:09 EST, Instructions Replace Required Details, Route to Pharmacy Electronically, [id number]... Start Date: 07/20/18 Status: Orderedlithium 450 mg oral tablet, extended release 1 tablet, By Mouth, Daily, # 90 tablet, 1 Refills, Maintenance, 05/10/20 9:15:00 EDT, [id number], 170, cm, 04/25/20 14:26:00 EDT, Height Start Date: 05/10/20 Status: OrderedMetoprolol Tartrate 50 mg oral tablet 1 tablet = 50 mg, By Mouth, 2 times a day, # 180 tablet, 1 Refills, Soft Stop, 07/29/20 10:27:00 EST, [facility]/pharmacy #[id number], 170, cm, 06/14/20 6:52:00 EST, [...] Dates Health Clinical Infor mant Status Service Hypercholesterolemia Discharge 11/01/20 Diagnosis Hypertension Discharge 11/01/20 Diagnosis COPD NOS Discharge 11/01/20 Diagnosis Tobacco abuse Discharge 11/01/20 Diagnosis Leg cramps Discharge 11/01/20 Diagnosis Dyspnea on exertion Discharge 11/01/20 Diagnosis Vital Signs Most recent to oldest [Reference Range]: 1 Height 170 cm (10/31/20 2:37 PM) Weight 63.0 kg (10/31/20 2:37 PM) Pulse Rate [55-90 bpm] 72 bpm (10/31/20 2:37 PM) Body Mass Index [18.5-24.99] 21.8 (10/31/20 2:37 PM) Blood Pressure [90-138/55-84 mm Hg] 136/84 mm Hg (10/31/20 2:37 PM) Respiratory Rate [16-30 br/min] 16 br/min (10/31/20 2:37 PM) Temperature [96.8-100.4 DegF] 97.9 DegF (10/31/20 2:37 PM) Blood pressure sites Arm, right (10/31/20 2:37 PM) Temperature Route Oral (10/31/20 2:37 PM) Weight Obtained Via Standing scale (10/31/20 2:37 PM) Social History Social History Type Response Smoking Status 5-9 cigarettes (between 1/4 to 1/2 pack)/day in last 30 days; Other: 1ppd, 48yrs; entered on: 10/31/20 Sex
--- OUTSIDE RECORDS SUMMARY | 2022-05-22 21:54 | XMS_ITS | Continuity of Care Document ---
:1960 Author Organization [facility] Adult Address [address] [place] [address]- Care Team Providers Name Role Phone Perry OROZCO, Naz Alexander Primary Care Physician Encounter [facility] Date(s): 09/15/21 - 09/22/21 [facility] Adult [address] [place] [address]- Encounter Diagnosis COPD NOS (Discharge Diagnosis) - 09/15/21 Hypercholesterolemia (Discharge Diagnosis) - 09/15/21 Alcohol abuse, in remission (Discharge Diagnosis) - 09/15/21 Cocaine abuse in remission (Discharge Diagnosis) - 09/15/21 Hypertension (Discharge Diagnosis) - 09/15/21 Agitated depression (Discharge Diagnosis) - 09/15/21 Bipolar 2 disorder (Discharge Diagnosis) - 09/15/21 Attending Physician: Not on Staff, Attending MD [...] 1Early/Late Reason: Early/Late Reason: Other : NOT [id number] Comment: [id number] Comment: [facility]: [id number] EXP: [id number] Comment: [04/19/2017] radha [facility] [phone] Note: VIS [id number] Note: VIS [id number] Note: BIOMEDICAL LELA given by [id number] Note: given in clinic Medications citalopram 20 mg oral tablet 20 mg, 1, tablet, By Mouth, Daily, # 90 tablet, Refills 3, Tot. Refills 3, Maintenance, 08/12/21 16:53:00 EST, Route to Pharmacy Electronically, [facility]/pharmacy #[id number], 170, cm, 05/22/21 11:26:00 EDT, Height Start Date: 08/12/21 Status: Orderedezetimibe 10 mg oral tablet 1 tablet, By Mouth, Daily at bedtime, # 90 tablet, 3 Refills, Maintenance, 08/26/21 14:16:00 EST, [facility]/pharmacy #[id number], 170, cm, 05/22/21 11:26:00 EDT, Height Start Date: 08/26/21 Status: Orderedfluticasone 50 mcg/inh nasal spray See Instructions, TAKE 2 SPRAYS INTO BOTH NOSTRILS DAILY, # 48 mL, 1 Refills, 08/11/21 15:41:00 EST,[facility]/pharmacy #[id number], 90, TAKE 2 SPRAYS INTO BOTH NOSTRILS DAILY, 170, cm, 05/22/21 11:26:00 EDT, Height Start Date: 08/11/21 Status: Orderedhydrochlorothiazide-losartan 12.5 mg-100 mg oral tablet 1 tablet, By Mouth, Daily, # 30 tablet, 5 Refills, [id number], 30, TAKE 1 TABLET BY MOUTH EVERYDAY, 170, cm, 05/22/21 11:26:00 EDT, Height Start Date: 07/17/21 Status: OrderedImodium A-D 2 mg oral tablet See Instructions, 0.5 tablet By mouth daily on Wednesday, Wednesday and Wednesday, # 12 tablet, Refills 3,Tot. Refills 3, Maintenance, 07/20/18 10:28:09 EST, Instructions Replace Required Details, Route to Pharmacy Electronically, [id number]... Start Date: 07/20/18 Status: Orderedlithium 450 mg oral tablet, extended release 1 tablet, By Mouth, Daily, # 30 tablet, 2 Refills, 09/15/21 15:03:00 EST, [facility]/pharmacy #[id number], 170, cm, 09/15/21 14:44:00 EST, Height Start Date: 09/15/21 Status: OrderedMetoprolol Tartrate 50 mg oral tablet 1 tablet, By Mouth, 2 times a day, # 60 tablet, 5 Refills, [facility], 170, cm, 05/22/21 11:26:00 EDT, Height Start Date: 08/22/21 Status: OrderedrisperiDONE 2 mg oral tablet 1, tablet, By Mouth, Daily at bedtime, # 30 tablet, Refills 1, Route to Pharmacy Electronically, [facility], 170, cm, 05/22/21 11:26:00 EDT, Height Start Date: 08/31/21 Status: Ordered Problem List Condition Effective Dates [...] Informant Dates Status Service COPD NOS Discharge 09/15/21 Diagnosis Hypercholesterolemia Discharge 09/15/21 Diagnosis Alcohol abuse, in Discharge 09/15/21 remission Diagnosis Cocaine abuse in Discharge 09/15/21 remission Diagnosis Hypertension Discharge 09/15/21 Diagnosis Agitated depression Discharge 09/15/21 Diagnosis Bipolar 2 disorder Discharge 09/15/21 Diagnosis Vital Signs Most recent to oldest [Reference Range]: 1 Height 170 cm (09/15/21 2:44 PM) Social History Social History Type Response Smoking Status 5-9 cigarettes (between 1/4 to 1/2 pack)/day in last 30 days; Other: 1ppd, 48yrs; entered on: 10/31/20 Sex
--- OUTSIDE RECORDS SUMMARY | 2022-05-22 21:54 | XMS_ITS | Continuity of Care Document ---
:1960 Author Organization [facility] Adult Address [address] [place] [address]- Care Team Providers Name Role Phone Annetta Zambrano NP Primary Care Physician Encounter [facility] Date(s): 06/14/20 - 07/14/20 [facility] Adult [address] [place] [address]- Encounter Diagnosis Bipolar 2 disorder (Discharge Diagnosis) [...] Given 1Result Comment: [facility]: [id number] EXP: [id number] Comment: [04/19/2017] FISH garcia [phone] Note: VIS [id number] Note: VIS [id number] Note: BIOMEDICAL LELA given by [id number] Note: given in clinic Medications atorvastatin 80 mg oral tablet See Instructions, TAKE 1 TABLET BY MOUTH DAILY, # 30 tablet, 5 Refills, Soft Stop, 03/14/20 14:51:00EDT, [facility]/pharmacy #[id number], 170, cm, 01/15/20 14:32:00 EDT, Height Start Date: 03/14/20 Status: Orderedcitalopram 20 mg oral tablet 20 mg, 1, tablet, By Mouth, Daily, # 90 tablet, Refills 3, Tot. Refills 3, Maintenance, 01/02/20 14:57:00 EDT, Route to Pharmacy Electronically, [facility]/pharmacy #[id number], 170, cm, 04/18/19 13:58:00 EDT, Height Start Date: 01/02/20 Status: Orderedfluticasone 50 mcg/inh nasal spray See Instructions, TAKE 2 SPRAYS INTO BOTH NOSTRILS DAILY, # 48 mL, 1 Refills, Soft Stop, 03/25/20 21:36:00 EDT, [facility]/pharmacy #[id number], TAKE 2 SPRAYS INTO BOTH NOSTRILS DAILY, 170, cm, 01/15/20 14:32:00 EDT, Height Start Date: 03/25/20 Status: Orderedhydrochlorothiazide-losartan 12.5 mg-100 mg oral tablet See Instructions, TAKE 1 TABLET BY MOUTH EVERY DAY, # 90 tablet, 3 Refills, Soft Stop, 01/02/20 13:12:00 EDT, [facility]/pharmacy #[id number], TAKE 1 TABLET BY MOUTH EVERY DAY, 170, cm, 04/18/19 13:58:00 EDT, Height Start Date: 01/02/20 Status: OrderedImodium A-D 2 mg oral tablet See Instructions, 0.5 tablet By mouth daily on Wednesday, Wednesday and Wednesday, # 12 tablet, Refills 3,Tot. Refills 3, Maintenance, 07/20/18 10:28:09 EST, Instructions Replace Required Details, Route to Pharmacy Electronically, [id number]... Start Date: 07/20/18 Status: Orderedlithium 450 mg oral tablet, extended release 1 tablet, By Mouth, Daily, # 90 tablet, 1 Refills, Maintenance, 05/10/20 9:15:00 EDT, [facility], 170, cm, 04/25/20 14:26:00 EDT, Height Start [...] 1 Refills, Soft Stop, 04/01/20 15:13:00 EDT, [facility]/pharmacy #[id number], 170, cm, 01/15/20 14:32:00 EDT, Height Start Date: 04/01/20 Status: OrderedRisperDAL 2 mg oral tablet 2 mg, 1, tablet, By Mouth, Daily at bedtime, # 90 tablet, Refills 3, Tot. Refills 3, Maintenance, 01/02/20 15:00:00 EDT, Route to Pharmacy Electronically, [facility]/pharmacy #[id number], DOSE INCREASE; D/C RISPERIDONE 1 [...]
--- OUTSIDE RECORDS SUMMARY | 2022-05-22 21:54 | XMS_ITS ---
:1960 Author Name Perry Naz Care Team Providers Name Role Phone Naz Amador Unavailable Unavailable PROBLEMS Type Condition ICD9-CM Code SMC34-AN Code Onset Condition SNO MED Code Dates Status Problem Tinea unguium B35.1 Active 831126 005 Problem Ingrowing nail L60.0 Active 41586 7005 ALLERGIES Substance Reaction Event Type Date Status Percocet palpatations Drug Allergy Apr, Active ENCOUNTERS Encounter Location Date Diagnosis [address] Apr, Ing rowing nail L60.0 ; [place] Tinea unguium B 35.1 ; [address] Pain in right to e(s) M79.674 and Pain in left toe(s) M79. [address] Dec, Ing rowing nail L60.0 ; [place] Tinea unguium B 35.1 ; [address] Pain in right to e(s) M79.674 ; Pain i n left toe(s) M79.675 a nd Xerosis cutis L8 5.[address] Sep, Ing rowing nail L60.0 ; [place] Tinea unguium B 35.1 ; [address] Pain in right to e(s) M79.674 and Pain in left toe(s) M79. [address] Jul, [place] [address] Apr, Tin ea unguium B35.1 ; [place] Pain in right t oe(s) [address] M79.674 ; Pain i n left toe(s) M79.675 a nd Ingrowing nail L [address] Apr, [place] [address] Apr, [place] [address] Aug, [place] [address] May, [place] [address] Dec, Jessica ntar wart B07.0 ; [place] Tinea unguium B 35.1 ; [address] Pain in right to e(s) M79.674 ; Pain i n right foot M79.671 and Pain in left toe(s) M 79.[address] Sep, Tin ea unguium B35.1 ; [place] Plantar wart B0 7.0 ; [address] Pain in right to e(s) M79.674 ; Pain i n right foot M79.671 and Pain in left toe(s) M [address] Aug, Tin ea unguium B35.1 ; [place] Ingrowing nail L60.0 ; [address] Plantar wart B07 .0 ; Pain in right to e(s) M79.674 ; Pain i n right foot M79.671 and Pain in left toe(s) M [address] Sep, Tin ea unguium B35.1 ; [place] Pain in right t oe(s) [address] M79.674 and Pain in left toe(s) M79. 675 IMMUNIZATIONS Vaccine Route Administration Date Status COVID-19 Pfizer BioNTech Vaccine Unknown Jun 02, 2021 Administered SOCIAL HISTORY Qualifiers Date Current Smoker 02/18/1972 REASON FOR REFERRAL FUNCTIONAL STATUS PLAN OF CARE Activity Details Follow Up 3 Months Reason: Future Appointment Provider Name:Stefan Carvalho , 2022-07-07 03:45:00 PM, [address] [facility] [place], [id number], Future/Pending Procedure 09295-Gtbjyfqt Plate Future/Pending Procedure 20304-Oaxvgahw Plate Each Ad ditional Future/Pending Procedure 07044-Zmdfgdst Plate Future/Pending Procedure 79975-Nktbltpo Plate Each Ad ditional Future/Pending Procedure 85472-Zxkvtstx Plate Future/Pending Procedure 94608-Udsjwtcb Plate Each Ad ditional Future/Pending Procedure 74943-Iqbztjur Plate Future/Pending Procedure 55526-Ekxwjmvj Plate Each Ad ditional Future/Pending Procedure 40757-Uqdu Destruction, 1-14 Future/Pending Procedure 17323-Tata Destruction, 1-14 Future/Pending Procedure 85747-Eoig Destruction, 1-14 Future/Pending Procedure 68291-Dgcpiptv Plate VITAL SIGNS Height 5 ft 7 in in 2022-04-14 Weight 135 lbs 2022-04-14 BMI 21.14 kg/m2 2022-04-14 Heart Rate 62 /min 2015-09-20 Blood pressure systolic 120 mm Hg 2022-04-14 Blood pressure diastolic 70 mm Hg 2022-04-14 MEDICATIONS Medication Instructions Dosage Frequency Start End Duration Statu s Date Date Citalopram Orally Once a 1 tablet 24h 30 day(s) Acti ve Hydrobromide 20 day MG Ezetimibe 10 MG Orally Once a 1 tablet 24h 30 day(s) Active day Losartan Active Potassium risperiDONE 2 Orally Once a 1 tablet 24h 30 day(s) A ctive MG day Fluticasone Nasally Once a 1 spray in 24h 30 day(s) Active Propionate 50 day each nostril MCG/ACT RisperDAL Not-Taki ng Atorvastatin Not-Taki Calcium ng Metoprolol Orally Twice a 1 tablet with 12h 30 day(s ) Active Tartrate 50 MG day food [place] Active Ammonium Externally to 1 application 12h 30 days Act genie Lactate 12 % feet Twice a to affected day area PROCEDURES Procedure Date Ordered Result Body Site Avulsion Plate Each Additional October 10, 2021 Avulsion Plate Each Additional Apr 14, 2022 Avulsion Plate Each Additional January 06, 2022 Avulsion Plate Apr 14, 2022 Avulsion Plate January 06, 2022 Avulsion Plate October 10, 2021 Avulsion Plate Aug 03, 2017 Avulsion Plate Apr 25, 2021 Wart Destruction, -October 26, 2017 Wart Destruction, -January 25, 2018 Avulsion Plate Each Additional Apr 25, 2021 Wart Destruction, -Aug 03, 2017 RESULTS No Results REASON FOR VISIT Insurance Providers [facility] Health Member Patient Patient Patient Patient Patient Subscriber Subscriber Subscriber Group Insurance Plan Plan Plan Plan ID Relationship Address Phone Name Date of ID Name Date of No Type Insurance Insurance Insurance Coverage to Subscriber Address Phone Name Dates [facility] [phone] [facility] [place] [id number] [place] [facility] [address] [employer] [phone] [facility] [place] [id number] [place] [address] MEDICAL (GENERAL) HISTORY Type Description Date Medical History Anxiety Medical History Depression Medical History Chicken pox Medical History Hypertension Medical History Reflux Medical History Cholesterol Surgical History No know Surgical history Hospitalization History [facility] 2 night stay for observation for possible NE and elavated BP
[2022-05-22 21:56] LABS: Troponin-I High Sensitivity 3.6 ng/L (<3.5-17.0)
[2022-05-22 22:30] VITALS: BP 152/83; PULSE 70; RESP 18; TEMP 36.5; O2SAT 98
[2022-05-22 23:10] LABS: Troponin-I High Sensitivity 4.5 ng/L (<3.5-17.0)
[2022-05-22 23:26] VITALS: PULSE 65
--- NOTE | 2022-05-22 23:43 | PC.NURSE ---
Discharge instructions reviewed with pt. Pt verbalizes understanding.
== END 2022-05-22 23:44 | disposition home or self-care (01) ==
PROVIDERS: Emergency Provider Emergency Medicine
DX: R07.89 Other chest pain (principal); F17.210 Nicotine dependence, cigarettes, uncomplicated
CPT/HCPCS: 36415; 71045; 80053; 84484; 85025; 93005; 99283; 99285

== ENCOUNTER 2023-04-04 11:04 | Emergency (ER) | payer MEDICARE, MEDICAID, SELFPAY ==
--- NOTE | ~2023-04-04 | XR_ITS ---
EXAMINATION: XR HIP, LEFT CLINICAL INFORMATION: Groin pain COMPARISON: None available. TECHNIQUE: Two views of the left hip. FINDINGS: No acute visible fracture or dislocation. Mild degenerative arthropathy of the left femoral acetabular joint with joint space narrowing, sclerosis, and periarticular osteophyte formation along the lateral acetabular roof. Joint spaces and alignment are otherwise maintained. Punctate radiodensities in the left hemipelvis nonspecific but potentially representing calcified uterine fibroids. Soft tissues are unremarkable. Atherosclerotic calcifications are noted. XR/XR hip LT w PEL1V IMPRESSION: 1. No acute visible fracture or dislocation. 2. Mild degenerative arthropathy of the left femoral acetabular joint. 3. Punctate radiodensities in the left hemipelvis nonspecific but potentially representing calcified uterine fibroids.
--- NOTE | 2023-04-04 11:27 | ED_ITS ---
HPI - General Adult General Chief complaint: General Medical Stated complaint: L leg/ groin area pain Time Seen by Provider: 04/04/23 11:45 Source: patient Mode of arrival: ambulatory Limitations: no limitations History of Present Illness HPI narrative: Patient is a 63-year-old female with history of hypertension presenting to the emergency department with complaint of left groin pain since yesterday morning. She reports pain is worse with standing and ambulation. Took a combination ibuprofen/Tylenol with little relief, used ice with temporary relief. States pain radiates to upper thigh. She denies any abdominal pain, dysuria, hematuria or other urinary symptoms. Denies any numbness or tingling to her leg. Denies any saddle anesthesia or bowel or bladder incontinence. Denies any fevers. Denies prior similar episodes. She denies any excessive walking, lifting, or repetitive exercise prior to onset of symptoms. Denies fall or other trauma. MD complaint: left groin pain Onset (ago): day(s) Location: pelvis Radiation: distal Severity: severe Quality: aching Pain Consistency: constant Relieving factors: cold therapy and rest Exacerbating factors: movement Associated symptoms: denies other symptoms Treatments prior to arrival: NSAID and cold therapy Related Data Previous Rx's Medication Instructions Recorded cyclobenzaprine 5 mg tablet 5 mg PO TID PRN muscle spasm #10 04/04/23 tabs Allergies Allergy/AdvReac Type Severity Reaction Status Date / Time No Known Allergies Allergy Verified 04/04/23 11:28 Review of Systems Review of Systems: As per HPI. Yes all other systems are reviewed and are negative Constitutional: Constitutional: Reports as per HPI [facility] Social History Social History Patient Tobacco Use Status: Current everyday Tobacco user Advance Directives: No Advance Directives Information Provided: Yes Physical Exam ED Vital Signs: Vital Signs - 24 hr 04/04/23 11:28 Temperature 98 F Pulse Rate 60 Respiratory Rate 18 Blood Pressure 130/65 Pulse Oximetry 99 Oxygen Delivery Method Room Air BMI result Body Mass Index 21.1 Vital signs have been reviewed and appear to be correct. Blood pressure normal. Heart rate normal. Respiratory rate normal. Temperature normal. Oxygen saturation normal. Const General: cooperative, healthy appearing and no acute distress Orientation/consciousness: oriented to person, oriented to place, oriented to time and patient oriented x3 Limitations: no limitations HENMT Head: Yes normocephalic and Yes atraumatic Ears: external ears normal General nose exam: Normal external nose present Face and sinus: Yes face symmetric Mouth: oropharynx normal and moist mucous membranes Throat: Yes uvula midline Eyes Pupils: Equal, round and reactive pupils present Neck Neck: Yes normal visual inspection, Yes no meningeal signs and Yes supple Resp Effort & Inspection: normal respiratory effort and able to speak in complete sentences Auscultation: clear to auscultation bilaterally Cardio Rate: regular rate Rhythm: regular rhythm Heart sounds: S1 normal heart sound present and S2 normal heart sound present GI Inspection: Yes normal to inspection Palpation (GI): Soft to palpation, nontender and no hernias Auscultation: normoactive bowel sounds General: Yes no CVA tenderness Back/Spine/Pelvis Back: no CVA tenderness Pelvis: pain with anterior-posterior compression and no pain with lateral compression Sacroiliac joints: bilaterally nontender Skin General skin exam: elasticity normal and turgor normal Neuro General: oriented to person, oriented to place, oriented to time, patient oriented x3, gait normal, tone normal, moves all extremities, Normal light touch and pain sensation, no meningeal signs, no focal motor deficits, CN's II-XI intact bilaterally and deep tendon reflexes 2+ bilaterally Cranial nerves: Yes Equal, round and reactive pupils present Cognition (Neuro): normal cognition Motor exam (neuro): Normal motor muscle tone present throughout and Motor abnormalities not present Sensory Exam: Normal double simultaneous stimulation for sensation Extrem General: Yes full ROM, Yes no pedal edema and Yes no calf tenderness Left lower extremity: hip/thigh (4/5 strength with straight leg raise, normal Alberto test) Details: normal to inspection, tenderness Location: of the hip and normal ROM; no swelling, no ecchymosis, no deformity and no unusual warmth Psych Mental Status: mental status grossly normal Affect: normal affect Thought process: Normal thought process present Course Course Course Narrative: This is a rapid medical exam. Deferred additional HPI, ROS PE to primary pro vider. 63 yo female with history of HTN, depression, anxiety/depression, here with complaints of left groin/lower abdominal pain with radiation down left leg since yesterday with no known injury or trauma. Will obtain labs, UA VSS Medical Decision Making Medical Decision Making MDM Narrative: Patient is a 63-year-old female with history of hypertension presenting to the emergency department with complaint of left groin pain since yesterday morning. On exam patient is awake, A+Ox3, VS WNL, afebrile, normal neurological exam without focal deficits, tenderness to palpation of left inguinal area and proximal anterior thigh on left, 4/5 strength with straight leg raise on left, normal Alberto test, pain with anterior-posterior compression of pelvis, no SI joint tenderness, abdomen soft and nontender, no CVA tenderness. Given reported symptoms and physical exam findings, initial differential includes groin strain, bursitis, fracture, osteoarthritis. Do not suspect nerve entrapment, no satya dence of hernia on physical exam. Labs notable for no leukocytosis to raise concern for infection, no electrolyte abnormalities. No evidence of infection on UA. Degenerative changes noted on x-ray, patient updated on results. Discussed with patient that symptoms are likely related to a groin strain. Will prescribe short course of cyclobenzaprine, advised patient to apply warm compresses for 10-15 minutes several times daily, perform gentle stretching exercises several times daily. Will refer to orthopedics for any ongoing symptoms. Advised patient to follow-up with primary care provider this week. Patient verbalized understanding of and agreement with plan. Differential Diagnosis Differential Diagnoses: The differential diagnosis associated with the presentation includes As per [facility] Lab Data [facility] Lab Attestation statement: I reviewed the patient's lab results. As per [facility] 04/04/23 11:47 04/04/23 11:47 Labs: Lab Results 04/04/23 04/04/23 04/04/23 Range/Units 11:47 11:47 13:30 WBC 9.9 (4.8-10.8) X10*3/uL RBC 4.70 (4.20-5.50) X10*6/uL Hgb 14.2 (12.0-16.0) g/dl Hct 41.7 (37.0-47.0) % MCV 88.7 (80.0-98.0) fL MCH 30.2 (27.0-33.0) pg MCHC 34.1 (31.0-35.0) g/dl RDW 12.9 (11.0-16.0) % Plt Count 188 D (160-400) X10*3/uL MPV 9.0 L (9.4-12.3) fL Immature Gran % (Auto) 0.3 (0.0-0.4) % Neut % (Auto) 67.8 (45-73) % Lymph % (Auto) 21.0 (20-40) % [place] % (Auto) 7.4 (2-11) % Eos % (Auto) 2.9 (0-4) % Baso % (Auto) 0.6 (0-2) % Lymph # (Auto) 2.1 (1.2-4.9) X10*3/uL [place] # (Auto) 0.7 (0.1-1.2) X10*3/uL Eos # (Auto) 0.3 (0.0-0.4) X10*3/uL Baso # (Auto) 0.1 (0.0-0.2) X10*3/uL Abs Immat Gran (auto) 0.03 (0.00-0.03) X10*3/uL Absolute Neuts (auto) 6.7 (2.0-8.3) x10*3/uL Absolute Nucleated RBC 0.000 (0.0-0.012) X10*3/uL Nucleated RBC % (auto) 0.0 (0.0-0.2) /100WBC Sodium 137 (135-145) mmol/L Potassium 3.9 (3.3-5.1) mmol/L Chloride 104 (96-108) mmol/L Carbon Dioxide 24 (22-29) mmol/L Anion Gap 13 (12-20) BUN 10 (9-16) mg/dL Creatinine 0.84 (0.5-1.4) mg/dL Estim Creat Clear Calc 67.1 Estimated GFR > 60 Random Glucose 92 (60-115) mg/dL Calcium 10.4 H D (8.4-10.2) mg/dL Total Bilirubin 0.5 (0.0-1.0) mg/dL Direct Bilirubin 0.1 (0.0-0.5) mg/dL AST 13 (5-31) U/L ALT 11 (0-31) U/L Alkaline Phosphatase 61 (39-117) U/L Total Protein 6.8 (6.5-8.0) g/dL Albumin 4.2 (3.5-5.0) g/dL Urine Color Yellow Urine Appearance Clear Urine pH 6.0 (5.0-9.0) Ur Specific [place] 1.020 (1.005-1.025) Urine Protein Negative (Neg-Trace) mg/dL Urine Glucose (UA) Negative (Negative) mg/dL Urine Ketones Negative (Negative) mg/dL Urine Blood Negative (Negative) Urine Nitrite Negative (Negative) Ur Leukocyte Esterase Negative (Negative) Independent Interpretation I performed an independent interpretation of an: Plain X-Ray Interpretation: No fracture or dislocation, degenerative arthropathy of left acetabular joint Radiology Impression Discussion of test interpretation with radiology: I have reviewed the rad iologist's reading. Radiologist Impression: XR/XR hip LT w PEL1V IMPRESSION: 1.? No acute visible fracture or dislocation. 2.? Mild degenerative arthropathy of the left femoral acetabular joint. 3.? Punctate radiodensities in the left hemipelvis nonspecific but potentially representing calcified uterine fibroids. ? External Record Review External record reviewed: Inpatient record, Office record and Outpatient record Prescription Management I considered prescription management with: Other Discharge Plan Discharge Clinical Impression: Strain of left groin Patient Disposition: Home, Self-Care Instructions: Groin Strain (ED) Additional Instructions: You were evaluated in the emergency department today for left groin pain which is likely related to a muscle strain. You are being prescribed cyclobenzaprine which you can take up to every 8 hours as needed for muscle spasms. You can also take 600 mg ibuprofen or 650 mg Tylenol every 6 hours as needed for pain. If necessary, you can alternate these medications every 3 hours. For example, you can take Tylenol at noon, ibuprofen at 3, Tylenol 6, etc.. You should apply warm compresses to the affected area for 10-15 minutes at a time several times daily. You should also perform gentle stretching exercises as demonstrated in the emergency department several times daily, avoiding any stretches that increase her cause severe pain. Please follow-up with your primary care provider this week. Return to the emergency department if you develop worsening pain, new numbness, tingling, or weakness to your legs, numbness or tingling to her groin, bowel or bladder incontinence fever 100.4? F or greater, change of color your leg, or any other concerning symptoms. Prescriptions: New cyclobenzaprine 5 mg tablet 5 mg PO TID PRN (Reason: muscle spasm) Qty: 10 0RF Referrals: [facility] [Provider Group]
[2023-04-04 11:28] VITALS: BP 130/65; PULSE 60; RESP 18; TEMP 36.6; O2SAT 99; BMI 21.1
[2023-04-04 11:54] LABS: MANUAL DIFF FLAG NO
[2023-04-04 11:55] LABS: Basophils Absolute Auto 0.1 X10*3/uL (0.0-0.2); Basophils Percent Auto 0.6 % (0-2); Eosinophils Absolute Auto 0.3 X10*3/uL (0.0-0.4); Eosinophils Percent Auto 2.9 % (0-4); Hematocrit 41.7 % (37.0-47.0); Hemoglobin 14.2 g/dl (12.0-16.0); Imm Gran Abs Auto 0.03 X10*3/uL (0.00-0.03); Imm Gran Pct Auto 0.3 % (0.0-0.4); Lymphocytes Absolute Auto 2.1 X10*3/uL (1.2-4.9); Mean Corpuscular HGB Conc 34.1 g/dl (31.0-35.0); Mean Corpuscular Hemoglobin 30.2 pg (27.0-33.0); Mean Corpuscular Volume 88.7 fL (80.0-98.0); Monocytes Absolute Auto 0.7 X10*3/uL (0.1-1.2); Monocytes Percent Auto 7.4 % (2-11); Neutrophils Absolute Auto 6.7 x10*3/uL (2.0-8.3); Neutrophils Percent Auto 67.8 % (45-73); Platelet Count 188 X10*3/uL (160-400); Red Cell Distribution Width 12.9 % (11.0-16.0); White Blood Count 9.9 X10*3/uL (4.8-10.8)
[2023-04-04 12:13] LABS: Alanine Aminotransferase 11 U/L (0-31); Albumin Level 4.2 g/dL (3.5-5.0); Alkaline Phosphatase 61 U/L (39-117); Anion Gap 13 (12-20); Aspartate Amino Transferase 13 U/L (5-31); Bilirubin Direct 0.1 mg/dL (0.0-0.5); Bilirubin Total 0.5 mg/dL (0.0-1.0); Blood Urea Nitrogen 10 mg/dL (9-16); Calcium 10.4 mg/dL (8.4-10.2); Carbon Dioxide 24 mmol/L (22-29); Chloride 104 mmol/L (96-108); Creatinine Clr Calc Pharmacy 67.1; Estimated Glomerular Filt Rate > 60; Glucose Random 92 mg/dL (60-115); Potassium 3.9 mmol/L (3.3-5.1); Sodium 137 mmol/L (135-145); Total Protein 6.8 g/dL (6.5-8.0)
[2023-04-04 13:40] LABS: Appearance Urine Clear; Color Urine Yellow; Glucose Urine UA Negative (Negative); Leukocyte Esterase Urine Negative (Negative); Nitrite Urine Negative (Negative); Urine Blood Negative (Negative); Urine Ketones Negative (Negative); Urine Protein Negative (Neg-Trace)
== END 2023-04-04 14:45 | disposition home or self-care (01) ==
PROVIDERS: Nurse Practitioner Family; Emergency Provider Emergency Medicine; PCP Nurse Practitioner Family
DX: S39.011A Strain of muscle, fascia and tendon of abdomen, initial encounter (principal); R10.2 Pelvic and perineal pain; X58.XXXA Exposure to other specified factors, initial encounter; Y93.9 Activity, unspecified; Y92.9 Unspecified place or not applicable; Y99.9 Unspecified external cause status; Z79.899 Other long term (current) drug therapy
CPT/HCPCS: 36415; 73502; 80048; 80076; 81003; 85025; 99283

== ENCOUNTER 2024-02-29 08:33 | Outpatient (REF) | payer MEDICARE, SELFPAY ==
[2024-02-29 10:41] LABS: Alanine Aminotransferase 21 U/L (0-31); Aspartate Amino Transferase 15 U/L (5-31); Cholesterol 115 mg/dL (<200); HDL Cholesterol 41 mg/dL (>40); LDL Cholesterol Calculated 53 mg/dL (<100); Triglycerides 105 mg/dL (<150)
== END 2024-02-29 08:34 | disposition home or self-care (01) ==
LOC: HO.HMGCLDS 08:33
PROVIDERS: PCP Nurse Practitioner Family; Visit Provider Internal Medicine Cardiovascular Disease
DX: I25.10 Atherosclerotic heart disease of native coronary artery without angina pectoris (principal)
CPT/HCPCS: 36415; 80061; 84450; 84460

== ENCOUNTER 2024-10-07 21:52 | Emergency (ER) | payer MEDICAID, SELFPAY ==
--- NOTE | ~2024-10-07 | US_ITS ---
CLINICAL HISTORY: pain, prior DVT same leg Venous duplex ultrasound left lower extremity Comparison: None Findings: Acute occlusive thrombus includes the left superficial femoral vein with mild thrombus extending to imaged left common femoral vein and left deep femoral vein The remainder of the imaged deep veins are fully compressible with normal Doppler color flow and spectral tracings. Imaged superficial soft tissues are unremarkable. IMPRESSION: Acute occlusive thrombus of the left common femoral vein with adjacent thrombosis in the left common femoral vein and left deep femoral vein (positive ultrasound) This document has been electronically signed by: Jame Lehman MD on 10/08/2024 01:25:46
[2024-10-07 22:17] VITALS: BP 140/72; PULSE 71; RESP 18; TEMP 36.3; O2SAT 97; BMI 22.3
[2024-10-07 22:38] LABS: MANUAL DIFF FLAG NO
[2024-10-07 22:39] LABS: Basophils Absolute Auto 0.1 X10*3/uL (0.0-0.2); Basophils Percent Auto 0.6 % (0-2); Eosinophils Absolute Auto 0.3 X10*3/uL (0.0-0.4); Eosinophils Percent Auto 2.5 % (0-4); Hematocrit 41.6 % (37.0-47.0); Hemoglobin 14.4 g/dl (12.0-16.0); Imm Gran Abs Auto 0.04 X10*3/uL (0.00-0.03); Imm Gran Pct Auto 0.4 % (0.0-0.4); Lymphocytes Absolute Auto 2.8 X10*3/uL (1.2-4.9); Lymphocytes Percent Auto 26.7 % (20-40); Mean Corpuscular HGB Conc 34.6 g/dl (31.0-35.0); Mean Corpuscular Hemoglobin 30.8 pg (27.0-33.0); Mean Corpuscular Volume 89.1 fL (80.0-98.0); Monocytes Absolute Auto 0.9 X10*3/uL (0.1-1.2); Monocytes Percent Auto 8.7 % (2-11); Neutrophils Absolute Auto 6.5 x10*3/uL (2.0-8.3); Neutrophils Percent Auto 61.1 % (45-73); Platelet Count 198 X10*3/uL (160-400); Red Blood Count 4.67 X10*6/uL (4.20-5.50); Red Cell Distribution Width 13.2 % (11.0-16.0); White Blood Count 10.6 X10*3/uL (4.8-10.8)
[2024-10-07 22:54] LABS: Alanine Aminotransferase 20 U/L (0-31); Albumin Level 4.2 g/dL (3.5-5.0); Alkaline Phosphatase 78 U/L (39-117); Anion Gap 13 (12-20); Aspartate Amino Transferase 19 U/L (5-31); Bilirubin Total 0.3 mg/dL (0.0-1.0); Blood Urea Nitrogen 14 mg/dL (9-16); Calcium 10.2 mg/dL (8.4-10.2); Carbon Dioxide 25 mmol/L (22-29); Chloride 106 mmol/L (96-108); Creatinine Clr Calc Pharmacy 72.7; Estimated Glomerular Filt Rate > 60; Glucose Random 105 mg/dL (60-115); Potassium 4.2 mmol/L (3.3-5.1); Sodium 140 mmol/L (135-145); Total Protein 7.3 g/dL (6.5-8.0)
[2024-10-07 22:59] LABS: D Dimer High Sensitivity 337 NG/ML
--- NOTE | 2024-10-08 01:33 | ED_ITS ---
HPI - Extremity Problem General Chief complaint: Extremity Problem Stated complaint: left leg blood clot/upper thigh? Time Seen by Provider: 10/08/24 01:33 Source: patient Mode of arrival: ambulatory Limitations: no limitations History of Present Illness ED Provider: Dr. Nato Guerrero HPI Narrative: 64-year-old female history of hypertension, NE, tobacco use disorder who presents emergency department for evaluation of pain in her left inner thigh which started yesterday got progressively worse. Patient states that 1.5 years prior she was diagnosed with a DVT with no clear etiology. She was on Eliquis and was told by her doctor that she can stop this medication. She stopped her Eliquis 3 months prior. The patient has not gone on any long trips. She was not on estrogen replacement therapy. She states that she has occasional chills and night sweats. She was had no weight loss or weight gain. She states that occasionally she was trouble swallowing liquids especially coffee but does not have difficulty swallowing solids. Patient had a colonoscopy 3 years prior and states that she had polyps removed which she believes were noncancerous. Related Data Previous Rx's ?Medication ?Instructions ?Recorded cyclobenzaprine 5 mg tablet 5 mg PO TID PRN muscle spasm #10 04/04/23 tabs apixaban 5 mg (74 tabs) tablets in 5 mg PO BID #74 ea 10/08/24 a dose pack (Eliquis DVT-PE Treat 30D Start) Allergies Allergy/AdvReac Type Severity Reaction Status Date / Time acetaminophen [From Percocet] AdvReac Palpitation Verified 10/07/24 22:18 s oxycodone [From Percocet] AdvReac Palpitation Verified 10/07/24 22:18 s Review of Systems 2 Review of Systems: Yes all other systems are reviewed and are negative [facility] Past Medical History [facility] Narrative: Social history: She does smoke cigarettes. She denies alcohol use. She denies drug Social History Social History Patient Tobacco Use Status: Current everyday Tobacco user Smoked in Last 30 Days: Yes Use of substances other than those prescribed or required for medical reasons: No Do you have a plan to hurt others: No Plan Patient : No Physical Exam 2 Vital Signs: Vital Signs: Last Vital Signs Temp 97.7 F 10/08/24 01:49 Pulse 67 10/08/24 01:49 Resp 16 10/08/24 01:49 BP 157/84 H 10/08/24 01:49 Pulse Ox 97 10/08/24 01:49 O2 Del Method Room Air 10/08/24 01:49 BMI result Body Mass Index 22.3 Vital signs revealed an elevated blood pressure of 157/84 otherwise unremarkable Exam: General: Awake, alert in no distress Head: Normocephalic, atraumatic EENT: PERRL, Lids normal, sclera normal, conjunctiva normal, nose normal , ears normal, throat without erythema or exudates Neck: Supple, no adenopathy Lung: breath sounds symmetric, no wheezing, rales or rhonchi Chest: symmetric movement, nontender Heart: regular rate and rhythm, normal S1, S2 no murmurs or rubs Abdomen: soft, non-tender, nondistended, normal bowel sounds Back: no vertebral tenderness, no CVAT Extremities: no deformities, lower extremities appear to be symmetric, she does have pain with palpation of her left inner thigh. Neuro: Awake, alert, oriented, normal speech, moves all extremities symmetrically Psych: Pleasant, cooperative Medical Decision Making Medical Decision Making MDM Narrative: 64-year-old female history of hypertension, NE, tobacco use disorder who presents emergency department for evaluation of pain in her left inner thigh which started yesterday got progressively worse. Patient states that 1.5 years prior she was diagnosed with a DVT with no clear etiology. She was on Eliquis and was told by her doctor that she can stop this medication. She stopped her Eliquis 3 months prior. The patient has not gone on any long trips. She was not on estrogen replacement therapy. She states that she has occasional chills and night sweats. She was had no weight loss or weight gain. She states that occasionally she was trouble swallowing liquids especially coffee but does not have difficulty swallowing solids. Patient had a colonoscopy 3 years prior and states that she had polyps removed which she believes were noncancerous. Vital signs revealed an elevated blood pressure otherwise unremarkable. Patient did have tenderness palpation of her left inner thigh but her lower extremities appear to be symmetric. Differential diagnosis: ?Includes but is not limited to left muscle strain, DVT, PE, anemia, electrolyte abnormalities Course: 03:12 My interpretation patient's laboratory evaluation as follows: CBC was normal. CMP was normal. D-dimer was elevated 337. Patient's duplex ultrasound of her left lower extremities consistent with DVTs. I did discuss this with the patient. I did order in hypercoagulation workup . The patient was given Eliquis 10 mg orally. She was given a prescription for started pack of Eliquis with 10 mg q.12 hours x7 days then 5 mg q.12 hours. 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 At this time I do not think that the patient has a pulmonary embolism. The patient was given printed and verbal instructions and discharged home. Admission/Observation Consideration of admission/observation: Escalation of care including admission/observation considered (Yes) Lab Data MDM Lab Attestation statement: I reviewed the patient's lab results. 10/07/24 22:30 10/07/24 22:30 Labs: Lab Results 10/07/24 Range/Units 22:30 WBC 10.6 (4.8-10.8) X10*3/uL RBC 4.67 (4.20-5.50) X10*6/uL Hgb 14.4 (12.0-16.0) g/dl Hct 41.6 (37.0-47.0) % MCV 89.1 (80.0-98.0) fL MCH 30.8 (27.0-33.0) pg MCHC 34.6 (31.0-35.0) g/dl RDW 13.2 (11.0-16.0) % Plt Count 198 (160-400) X10*3/uL MPV 9.0 L (9.4-12.3) fL Immature Gran % (Auto) 0.4 (0.0-0.4) % Neut % (Auto) 61.1 (45-73) % Lymph % (Auto) 26.7 (20-40) % [place] % (Auto) 8.7 (2-11) % Eos % (Auto) 2.5 (0-4) % Baso % (Auto) 0.6 (0-2) % Lymph # (Auto) 2.8 (1.2-4.9) X10*3/uL [place] # (Auto) 0.9 (0.1-1.2) X10*3/uL Eos # (Auto) 0.3 (0.0-0.4) X10*3/uL Baso # (Auto) 0.1 (0.0-0.2) X10*3/uL Abs Immat Gran (auto) 0.04 H (0.00-0.03) X10*3/uL Absolute Neuts (auto) 6.5 (2.0-8.3) x10*3/uL Absolute Nucleated RBC 0.000 (0.0-0.012) X10*3/uL Nucleated RBC % (auto) 0.0 (0.0-0.2) /100WBC D-Dimer High Sensitivty 337 NG/ML Sodium 140 (135-145) mmol/L Potassium 4.2 (3.3-5.1) mmol/L Chloride 106 (96-108) mmol/L Carbon Dioxide 25 (22-29) mmol/L Anion Gap 13 (12-20) BUN 14 (9-16) mg/dL Creatinine 0.77 (0.5-1.4) mg/dL Estim Creat Clear Calc 72.7 Estimated GFR > 60 Random Glucose 105 (60-115) mg/dL Calcium 10.2 (8.4-10.2) mg/dL Total Bilirubin 0.3 (0.0-1.0) mg/dL AST 19 (5-31) U/L ALT 20 (0-31) U/L Alkaline Phosphatase 78 (39-117) U/L Total Protein 7.3 (6.5-8.0) g/dL Albumin 4.2 (3.5-5.0) g/dL Radiology Impression Discussion of test interpretation with radiology: I have reviewed the radiologist's reading. Radiologist Impression: Venous duplex ultrasound left lower extremity Comparison: None Findings: Acute occlusive thrombus includes the left superficial femoral vein with mild thrombus extending to imaged left common femoral vein and left deep femoral vein The remainder of the imaged deep veins are fully compressible with normal Doppler color flow and spectral tracings. Imaged superficial soft tissues are unremarkable. IMPRESSION: Acute occlusive thrombus of the left common femoral vein with adjacent thrombosis in the left common femoral vein and left deep femoral vein (positive ultrasound) This document has been electronically signed by: Jame Lehman MD on 10/08/2024 01:25:46 Chronic Conditions Patient?s care impacted by: Hypertension and Other (Coronary artery disease) Discharge Plan Discharge Clinical Impression: Left leg DVT Patient Disposition: Home, Self-Care Instructions: Deep Vein Thrombosis (ED) Additional Instructions: The ultrasound of your left leg is consistent with a deep venous thrombosis to several veins in your left leg. I did order a hypercoagulation workup on you and I want you to follow-up with our hematologists Dr. Frank or Dr. Sierra to discuss these tests. They may also want to do more tests on you to try to figure out why you keep getting blood clots. Take Eliquis 5 mg pills, 2 pills every 12 hours for 7 days then 1 pill every 12 hours. When someone has recurrent DVTs/blood clot without a clear cause, they often need to be on anticoagulants blood thinners for the rest of their lives. This is something that the industrial security analyst can figure out for you. Watch for signs of blood clots to your lungs (pulmonary embolism). These signs and symptoms includes chest pain, shortness of breath, fever, chills, cough. Follow-up with your Dr. Frank or Dr. Sierra for follow-up and further treatment. Please give their office a call on Wednesday to schedule a follow up appointment. Please return to the emergency department if your symptoms get worse or if you develop any symptoms that are concerning to you. Venous duplex ultrasound left lower extremity Comparison: None Findings: Acute occlusive thrombus includes the left superficial femoral vein with mild thrombus extending to imaged left common femoral vein and left deep femoral vein The remainder of the imaged deep veins are fully compressible with normal Doppler color flow and spectral tracings. Imaged superficial soft tissues are unremarkable. IMPRESSION: Acute occlusive thrombus of the left common femoral vein with adjacent thrombosis in the left common femoral vein and left deep femoral vein (positive ultrasound) This document has been electronically signed by: Jame Lehman MD on 10/08/2024 01:25:46 Prescriptions: New Eliquis DVT-PE Treat 30D Start 5 mg (74 tabs) tablets,dose pack 5 mg PO BID Qty: 74 0RF No Action cyclobenzaprine 5 mg tablet 5 mg PO TID PRN (Reason: muscle spasm) Qty: 10 0RF Referrals: Mirza Sierra MD [Physician] - 1 week (Diagnosed with DVT 1.5 years prior, off Eliquis times 3 months, recurrence of left leg DVT. Anticoagulation workup ordered. Patient has a occasional night sweats, no weight loss, occasional difficulty swallowing liquids but not solids. Colonoscopy with polyps 3 years prior. Started on Eliquis.) Print Language: Armenian
[2024-10-08 01:49] VITALS: BP 157/84; PULSE 67; RESP 16; TEMP 36.5; O2SAT 97
[2024-10-08 03:15] LABS: INTERNATIONAL NORM RATIO 0.9 (0.9-1.1); Prothrombin Time 10.8 SEC (10.9-12.4)
[2024-10-08 03:18] LABS: Partial Thromboplastin Time 29.9 SEC (26.0-36.8)
--- OUTSIDE RECORDS SUMMARY | 2024-10-08 03:18 | XMS_ITS | Data Portability ---
Author Organization TESSIE Castellon s [address] Address [address] [place] [address] Assessment No assessment recorded. Plan of Treatment Reminders Order Date Submit Date Provider Last Modified By Organization Details Last Modified Time Details Appointments None record ed. Lab None record ed. Referral None record ed. Procedures None record ed. Surgeries None record ed. Imaging XR, foot, 3 or more view 024 03/26/20 [facility], [address] [place], [address], 17:29:16 Medication Orders None record ed. Patient TargetsNo targets recorded. Patient Instructions Encounter Date Encounter Id Patient Instructions Last Modified By Organization Details Last Modified Time 03/26/2024 [id number] learning about rice (rest, ice, compression, and elevation) [email or web address] Not available 03/26/2024 17:03:06 Reason for Referral None Reported. Results Created Date Observation Date Name Description Value Unit Range Abnormal Flag Note LastModifiedBy Organization Detail LastModifiedTime 03/26/20 24 03/26/2024 XR, foot, 3 or more view No observ ation record ed. [email or web address] [facility] [address] [place], [address], 03/27/2024 08:15:31 Result Notes None recorded. Problems Name Problem SNOMED Code Status Onset Date Resolution Date Notes Provider Name and Address Organization Details Recorded Time Hypertensive disorder 39236010 Active TESSIE Zaidi [facility] 16:48:21 Problem Notes None recorded. Procedures Surgical History None recorded. Imaging Results Imaging Date Name Status LastModified by Organiz ation Details LastModified Time 03/26/2024 XR, foot, 3 or more view completed [email or web address] [address] [place], [address], 03/27/2024 08:15:31 Procedure Notes None recorded. Medical Equipment None Reported. Allergies No known drug allergies Medications Name Sig Start Date Stop Date Status Note LastModified by Organization Details LastModified Time citalopram 40 mg tablet TAKE 1 TABLET BY MOUTH EVERY DAY active Not Available Not Available No t Available prednisone 20 mg tablet TAKE 2 TABLETS BY MOUTH EVERY DAY FOR 5 DAYS active Not Available Not Available No t Available lithium carbonate ER 450 mg tablet,extende d release TAKE 1 TABLET BY MOUTH EVERY DAY active Not Available Not Available No t Available risperidone 2 mg tablet TAKE 1 TABLET BY MOUTH EVERY DAY active Not Available Not Available No t Available trazodone 100 mg tablet TAKE 1 TABLET BY MOUTH EVERYDAY AT BEDTIME active Not Available Not Available No t Available amlodipine 10 mg tablet TAKE 1 TABLET BY MOUTH DAILY. active Not Available Not Available No t Available benzonatate 100 mg capsule TAKE 1 CAPSULE BY MOUTH THREE TIMES A DAY FOR 14 DAYS active Not Available Not Available No t Available metoprolol tartrate 50 mg tablet TAKE 1 TABLET BY MOUTH TWICE A DAY active Not Available Not Available No t Available albuterol sulfate HFA 90 mcg/actuation aerosol inhaler INHALE 2 PUFFS EVERY 6 HOURS NEEDED FOR WHEEZING/ SHORTNESS OF BREATH active Not Available Not Available No t Available fluticasone propionate 50 mcg/actuation nasal spray,suspensi on INSTILL 2 SPRAYS INTO BOTH NOSTRILS DAILY active Not Available Not Available No t Available risperidone 0.5 mg tablet TAKE 1 TABLET BY MOUTH TWICE A DAY NEEDED FOR ANXIETY FOR 30 DAYS active Not Available Not Available No t Available amoxicillin 875 mg-potassium clavulanate 125 mg tablet TAKE 1 TABLET BY MOUTH EVERY 12 HOURS FOR 10 DAYS active Not Available Not Available No t Available cyclobenzaprin e 5 mg tablet TAKE 1 TABLET BY MOUTH 3 TIMES A DAY NEEDED FOR MUSCLE SPASM active Not Available Not Available No t Available rosuvastatin 5 mg tablet TAKE 1 TABLET BY MOUTH EVERY DAY FOR 90 DAYS active Not Available Not Available No t Available losartan 100 mg-hydrochloro thiazide 12.5 mg tablet TAKE 1 TABLET BY MOUTH EVERY DAY. active Not Available Not Available No t Available Eliquis 5 mg tablet TAKE 1 TABLET BY MOUTH TWICE DAILY. active Not Available Not Available No t Available Eliquis DVT-PE Treatment 30-Day Starter 5 mg (74 tablets) in dose pack TAKE 2 TABLETS BY MOUTH TWO TIMES A DAY FOR 7 DAYS THEN 1 TABLET TWO TIMES A DAY active Not Available Not Available No t Available Vitals Date Recorded Body height Body mass index (BMI) Body weight Oxygen saturation Oxygen saturation in Arterial blood by Pulse oximetry Heart rate Respiratory rate Body temperature Systolic blood pressure Diastolic blood pressure Provider Name and Address Organization Details Last Updated DateTime 4 170.18 cm 22.7 kg/m2 07693.8 9 g 98 % 98 % 104 /min 18 /min 96.2 [degF] 113 mm[Hg] 72 mm[Hg] Margarita Holt PA - [facility] 4 16:47:31 Social History None recorded. Functional Status None recorded. Mental Status None recorded. Family History Relationship Description Onset Age of this Age Resolved Age Notes LastModified by Organization Details LastModified Time Father No current problems or disability [email or web address] Not available 03/26 16:48:25 Mother No current problems or disability [email or web address] Not available 03/26 16:48:25 Medical History No medical history recorded. Gynecological HistoryNo gynecological history recorded. Obstetrics History GPAL:G 0 P 0 0 0 0 Immunizations Vaccine Type Date Status Note Provider Nam e and Address Organization Details Recorded Time Influenza, split virus, quadrivalent, preservative 9 completed Margarita Holt null, PA - [facility] 03/26/2024 16:47:54 Influenza, split virus, quadrivalent, preservative 8 completed Margarita Holt null, PA - [facility] 03/26/2024 16:47:54 zoster recombinant 2 completed Margarita Holt null, PA - [facility] 03/26/2024 16:47:54 zoster recombinant 2 completed Margarita Holt null, PA - [facility] 03/26/2024 16:47:54 COVID-19, mRNA, LNP-S, PF, 30 mcg/0.3 mL dose 1 completed Margarita Jonathon null, PA - [facility] 03/26/2024 16:47:54 COVID-19, mRNA, LNP-S, PF, 30 mcg/0.3 mL dose 1 completed Margarita Jonathon null, PA - [facility] 03/26/2024 16:47:54 COVID-19, mRNA, LNP-S, PF, 30 mcg/0.3 mL dose 1 completed Margarita Jonathon null, PA - [facility] 03/26/2024 16:47:55 COVID-19, mRNA, LNP-S, PF, 30 mcg/0.3 mL dose 1 completed Margarita Jonathon null, PA - [facility] 03/26/2024 16:47:55 COVID-19, mRNA, LNP-S, PF, 30 mcg/0.3 mL dose 1 completed Margarita Jonathon null, PA - [facility] 03/26/2024 16:47:55 Influenza, split virus, trivalent, preservative 1 completed Margarita Jonathon null, PA - [facility] 03/26/2024 16:47:55 Influenza, split virus, quadrivalent, PF 4 completed Margarita Jonathon null, PA - [facility] 03/26/2024 16:47:55 Influenza, split virus, quadrivalent, PF 2 completed Margarita Jonathon null, PA - [facility] 03/26/2024 16:47:55 Past Encounters Encounter ID Performer Location Encounter Start Date Encounter Closed Date Diagnosis/Indication Diagnosis SNOMED-CT Code Diagnosis ICD10 Code Diagnosis [place] [id number] [place] [address] [place] [address] 03/26/2024 16:39:46 03/26/2024 17:07:55 Pain in right foot 4191558270 08127 M79.671 Xray preliminar y reading is negativeYo ur x-ray will be reviewed by a radiologis t. You will be notified of any discrepanc ies between findings discussed at your visit today and the radiology interpreta tion. Health Concerns Section Related Observation LastModified by Organization Detai ls LastModified Time None Recorded Concern Status LastModified by Organization Details LastModified Time None Recorded Advance Directives Directive None Recorded Payers Encounter Date Sequence Insurance Name Policy Number Policy Barrow Covered Member ID Barrow Member ID Guarantor Name 03/26/2024 1 MEDICARE [place]: [employer] SERVICES Beatriz Olson [id number] 1 Beatriz Olson Notes Date Note Type Note Provider Name and Address Organization Details Recorded Time 03/26/2024 text/html Foot/Ankle UCReported bypatient.Locatio n:right Probleminjury Severity:moderate Context:twisting Associated Symptoms:no weakness; no numbness; no tingling; no swelling; no redness; no warmth; no ecchymosis Aggravating factors:standing; walking Alleviating factors:limited weight bearing Previous InjuryNo prior injury to affected body part Prior Imaging:none Princess Connolly [place] [facility] [place], [address], PA - [facility] 03/26/2024 17:12:05 OBGyn Episode No OBEpisode recorded.
--- OUTSIDE RECORDS SUMMARY | 2024-10-08 03:18 | XMS_ITS | Patient Health Record ---
Author Organization [facility] Ashly mariam [place] Address [address] [facility] [place] [address] Care Team Providers Care Clinical Services Director Name Role Phone Perry OROZCO, Naz Primary Care Provider Unavail able Stefan Carvalho Unavailable [phone] Allergies Allergen (clinical drug ingredient) Drug/Non Drug Allergy documented on EMR Reaction Allergy Type Onset Date Status acetaminophen / oxycodone Percocet palpatations Drug Allergy Active Reason For Referral No Information Medications Medication SIG (Take, Route, Frequency, Duration) Notes Start Date End Date Status Atorvastatin Calcium Not-Taking RisperDAL Not-Taking traZODone HCl 50 MG as directed Orally O nce a day Active risperiDONE Active Metoprolol Tartrate 50 MG 1 tablet with food Orally Twice a day for 30 day(s) Active Losartan Potassium A ctive [place] Active Fluticasone Propionate 50 MCG/ACT 1 spray in each nostril Nasally Once a day for 30 day(s) Active Ezetimibe 10 MG 1 tablet Orally Once a day for 30 day(s) Active Citalopram Hydrobromide 30 MG 1 tablet Orally Once a day Active Ammonium Lactate 12 % 1 application to affected area Externally to feet Twice a day for 30 days Active Eliquis Active Immunizations Vaccine Route Administration Date Status Comme nts COVID-19 Pfizer BioNTech Vaccine Unknown 06/02/2021 Administered 1st 09/2020 2nd 10/2020 Booster 06/2021 Social History Tobacco Use: Social History Observation Description Date Details (start date - stop date) Current Smoker 02/18/1972 - NA Tobacco Use/Smoking Question Answer Notes Are you a: current smoker When did you start smoking? 02/18/1972 How often do you smoke cigarettes? every day How many cigarettes a day do you smoke? 11-20 How soon after you wake up d o you smoke your first cigarette? within 5 minutes Are you interested in quitting? Thinking about q uitting Additional Findings: Tobacco User Modera te cigarette smoker (10-19 cigs/day) Alcohol Screen Question Answer Notes Did you have a drink containing alcohol in the p ast year? No Points 0 Interpretation Negative Tobacco use other than smoking: Question Answer Notes Are you an other tobacco user? No Problems Problem Type SNOMED Code ICD Code Onset Dates Problem Status W/U Status Risk Notes Problem Tinea unguium (524892011) Tinea unguium (B35.1) Active confirmed Problem Ingrowing nail (936557488) Ingrowing nail (L60.0) Active confirmed Encounters Encounter Location Date Provider Diagnosis [address] [address] 11/05/2023 Stefan Carvalho [address] [address] 11/05/2023 Stefan Mendozaunier [address] [address] 01/12/2024 Stefan Carvalho Plan Of Treatment Pending Test Test Name Order Date [id number] NAIL, 1-05/04/2023 [id number]-HPSEBLO NAIL, -08/10/2023 72254-Yiut Destruction, -14 08/03/2017 52566-Dajq Destruction, 1-14 10/26/2017 70263-Trxn Destruction, -14 01/25/2018 45848-Oucnehxo Plate 04/25/2021 91068-Kfyqnwys Plate 10/10/2021 54842-Gaikeyhc Plate 01/06/2022 10228-Mipdsrpz Plate 10/13/2022 62746-Xgijpnpe Plate 04/14/2022 41633-Rywlujrl Plate 07/07/2022 69053-Akiqjhxo Plate 08/03/2017 65728-Okgoxjdi Plate Each Additional 12/2021 39538-Owcrgeir Plate Each Additional 91611-Mmqdjvwq Plate Each Additional 51552-Zqgwaqdu Plate Each Additional 01/2022 02649-Xaolljqc Plate Each Additional 06/2022 85140-Qweifttb Plate Each Additional Insurance Providers Payer Name Payer Address Payer Phone Subscriber Number Group Number Insured Name Patient Relationship to Insured Coverage Start Date Coverage End Date Medicare National [employer] [address] [place] [address] [id number] Beatriz Olson Self - patient is the insured 5 Medical (General) History Medical History History ICD Code Anxiety Depression Chicken pox Hypertension Reflux Cholesterol DVT - Left thigh ' Surgical History Surgery Date(Month/Year) Hospitalization History Reason Date(Month/Year) [facility] 2 night stay for observation for pos sible NM and elavated BP
--- OUTSIDE RECORDS SUMMARY | 2024-10-08 03:18 | XMS_ITS ---
Author Organization [facility] Address [address] [facility] [place] [address] Care Team Providers Care Traveling Buyer Name Role Phone Perry OROZCO, Naz Primary Care Provider Unavail able Stefan Carvalho Unavailable [phone] REASON FOR VISIT 01/17 cx @ reminder call Encounters Encounter Location Date Provider Diagnosis [facility] [address] [place] [address] 01/12/2024 Stefan Carvalho Plan Of Treatment No Information Progress Notes * Beatriz COSTELLODOB:1960 ( 64 yo F)Acc No.[id number]:01/12/2024 Patient:?Beatriz Costello :1960???Age:64 Y???Sex:Female [facility] [place], [address] * true * Date:? Generated for Printi bennie/Hortensiag/eTransmitting on:?10/08/2024 03:18 AM EDT
--- OUTSIDE RECORDS SUMMARY | 2024-10-08 03:18 | XMS_ITS | Continuity of Care Document ---
Author Organization [facility] Address [address] [place] [address]- Care Team Providers Care Operator Name Role Phone Perry OROZCO, Naz Alexander [id number] - 10/02/24 [facility] [address] [place], [place] [address] Attending Physician: AdmSherry cloud Admitting Physician: AdmtrSherry Referring Physician: Admtr, Ar8 Encounter Type: Triage Allergies, Adverse Reactions, Alerts Substance Criticality Severity Reaction Reaction Severity Status Percocet Activ e Chantix 1 Active 1projectile vomiting Immunizations Given and Recorded Vaccine Date Status Refusal Reason influenza virus vaccine, inactivated 08/13/23 Give n influenza virus vaccine, inactivated 05/20/22 Tres rded influenza virus vaccine, inactivated 1, 2 05/22/21 Given influenza virus vaccine, inactivated 3 04/25/20 Gi hector influenza virus vaccine, inactivated 04/25/19 Tres rded influenza virus vaccine, inactivated 04/27/18 Tres rded influenza virus vaccine, inactivated 4 04/19/17 Gi hector influenza virus vaccine, inactivated 06/22/14 Give n influenza virus vaccine, inactivated 04/24/13 Give n zoster vaccine, inactivated 06/23/22 Recorded zoster vaccine, inactivated 04/20/22 Recorded SARS-CoV-2 (COVID-19) mRNA BNT-162b2 vac 07/10/21 Recorded SARS-CoV-2 (COVID-19) mRNA BNT-162b2 vac 12/21/20 Recorded SARS-CoV-2 (COVID-19) mRNA BNT-162b2 vac 11/30/20 Recorded SARS-CoV-2 (COVID-19) mRNA BNT-162b2 vac 11/14/20 Recorded SARS-CoV-2 (COVID-19) mRNA BNT-162b2 vac 10/23/20 Recorded tetanus/diphtheria/pertussis, acel(Tdap) 04/18/19 Given Pneumococcal Vacc (oldterm) 5 04/25/12 Given FluLaval (oldterm) 6 04/25/12 Given FluLaval (oldterm) 7 06/17/10 Given Tet/Diphth/Acel, Pertussis (oldterm) 11/01/08 Give n Influenza Inactive (IM) (oldterm) 8 05/18/08 Given 1Early/Late Reason: Early/Late Reason: Other : NOT RECORDED 2Result Comment: [id number] 3Result Comment: [facility]: [id number] EXP: [id number] 4Result Comment: [04/19/2017] radha [facility] 3332-317-01 5Admin Note: VIS GIVEN 6Admin Note: VIS GIVEN 7Admin Note: BIOMEDICAL LELA given by DG 8Admin Note: given in clinic Medications Albuterol (Eqv-ProAir HFA) 90 mcg/inh inhalation aerosol 2 puffs, Inhalation, Every 6 hours, PRN Wheezing/Shortness of Breath, # 6.7 Gm, 1 Refills, Maintenance, 06/08/23 8:35:00 AM EST, [id number], Partial fill upon patient request if the prescription is for a schedule II opioid drug., 2 puffs Inhalation Every 6 hours,PRN:Wheezing/Shortness of Breath, 170, cm, 06/08/23 8:20:00 EST, Height, 63.5, kg, 04/07/23 18:58:00 EDT, Dry Weight Start Date: 06/08/23 Status: Ordered Quantity: 6.7 Unit: g Repeat number: 2 amLODIPine 10 mg oral tablet 1 tablet, By Mouth, Daily, # 90 tablet, 1 Refills, Maintenance, 03/31/24 11:31:00 AM EDT, [facility], 170, cm, 03/02/24 11:09:00 EDT, Height, 65.3, kg, 12/30/23 9:42:00 EDT, Dry Weight Start Date: 03/31/24 Status: Ordered Quantity: 90.0 Unit: tablet Repeat number: 1 apixaban 5 mg oral tablet 0.5 tablet = 2.5 mg, By Mouth, 2 times a day, # 90 tablet, 2 Refills, Maintenance, 08/18/23 7:38:00 AM EST, Tablet, [id number], Partial fill upon patient request if the prescription is for a schedule II opioid drug., 168, cm, 08/18/23 7:11:00 EST, Height, 64, kg, 08/12/23 14:53:00 EST, Dry Weight Start Date: 08/18/23 Stop Date: 05/14/24 Status: Ordered Quantity: 90.0 Unit: tablet Repeat number: 3 citalopram 40 mg oral tablet 1 tablet, By Mouth, Daily, # 90 tablet, 2 Refills, Maintenance, 09/08/24 10:56:00 AM EST, [facility], 170, cm, 09/02/24 11:00:00 EST, Height, 65.3, kg, 12/30/23 9:42:00 EDT, Dry Weight Start Date: 09/08/24 Status: Ordered Quantity: 90.0 Unit: tablet Repeat number: 1 fluticasone 50 mcg/inh nasal spray See Instructions, SPRAY 2 SPRAYS INTO BOTH NOSTRILS DAILY, # 48 mL, 2 Refills, 04/12/23 1:23:00 PM EDT, [id number], SPRAY 2 SPRAYS INTO BOTH NOSTRILS DAILY, 170, cm, 04/12/23 13:09:00 EDT, Height, 63.5, kg, 04/07/23 18:58:00 EDT, Dry Weight Start Date: 04/12/23 Status: Ordered Quantity: 48.0 Unit: mL Repeat number: 3 hydrochlorothiazide-losartan 12.5 mg-100 mg oral tablet 1 tablet, By Mouth, Daily, # 90 tablet, 1 Refills, Maintenance, 08/24/24 12:51:00 PM EST, [facility], 90, TAKE 1 TABLET BY MOUTH EVERY DAY., 170, cm, 03/02/24 11:09:00 EDT, Height, 65.3, kg, 12/30/23 9:42:00 EDT, Dry Weight Start Date: 08/24/24 Status: Ordered Quantity: 90.0 Unit: tablet Repeat number: 1 lithium 450 mg oral tablet, extended release 1 tablet, By Mouth, Daily, # 90 tablet, 1 Refills, Maintenance, 08/24/24 12:51:00 PM EST, [facility], 170, cm, 03/02/24 11:09:00 EDT, Height, 65.3, kg, 12/30/23 9:42:00 EDT, Dry Weight Start Date: 08/24/24 Status: Ordered Quantity: 90.0 Unit: tablet Repeat number: 1 Metoprolol Tartrate 50 mg oral tablet 1 tablet, By Mouth, 2 times a day, # 180 tablet, 1 Refills, Maintenance, 10/26/23 11:54:00 AM EDT, [id number], 170, cm, 09/30/23 8:49:00 EST, Height, 64.9, kg, 09/30/23 8:49:00 EST, Dry Weight Start Date: 10/26/23 Status: Ordered Quantity: 180.0 Unit: tablet Repeat number: 2 Pulmicort Flexhaler 180 mcg 1 puffs, Inhalation, 2 times a day, # 1 each, 1 Refills, Maintenance, 09/02/24 11:45:00 AM EST, [id number], Partial fill upon patient request if the prescription is for a schedule II opioid drug., 1 puffs Inhalation 2 times a day,x30 days, 170, cm, 09/02/24 11:00:00 EST, Height, 65.3, kg, 12/30/23 9:42:00 EDT, Dry Weight Start Date: 09/02/24 Stop Date: 11/01/24 Status: Ordered Quantity: 1.0 Unit: each Repeat number: 2 Indication: Chronic obstructive pulmonary disease with (acute) lower respiratory infection risperiDONE 2 mg oral tablet 1, tablet, By Mouth, Daily, # 90 tablet, Refills 1, Maintenance, 04/05/24 5:30:00 PM EDT, Route to Pharmacy Electronically, [facility], 170, cm, 03/02/24 11:09:00 EDT, Height, 65.3, kg, 12/30/23 9:42:00 EDT, Dry Weight Start Date: 04/05/24 Status: Ordered Quantity: 90.0 Unit: tablet Repeat number: 1 traZODone 100 mg oral tablet 1, tablet, By Mouth, Daily at bedtime, # 90 tablet, Refills 1, Maintenance, 06/16/24 8:27:00 AM EST, Route to Pharmacy Electronically, [facility], 170, cm, 03/02/24 11:09:00 EDT, Height, 65.3, kg, 12/30/23 9:42:00 EDT, Dry Weight Start Date: 06/16/24 Status: Ordered Quantity: 90.0 Unit: tablet Repeat number: 1 Problem List Condition Confirmation Course Effective Dates Status Health Status Informant Agitated depression Confirmed Active Allergic rhinitis Confirmed Active Atrophic vulva Confirmed Active IPMN (intraductal papillary mucinous neoplasm) Confirmed Active Bipolar 2 disorder Confirmed Active COPD NOS Confirmed Active Left leg DVT Confirmed Active Dyspnea on exertion Confirmed Active Esophageal Reflux Confirmed Active History of colon polyps Confirmed Active Hypercholesterolemia Confirmed Active Hypertension Confirmed 05/27/12 Active Alcohol abuse, in remission Confirmed Active Cocaine abuse in remission Confirmed Active Persistent insomnia Confirmed Active Solar lentigo Confirmed Active Tobacco abuse Confirmed Active Wheezing Confirmed Active Social History Social History Type Response Smoking Status 10 or more cigarette s (1/2 pack or more)/day in last 30 days; Interested in cessation: No; Patient wants NRT during admission No entered on: 08/11/23 Sex Sex Representation Female (finding) Patient Care team information Care Team Personnel Name: Perry OROZCO, Naz Alexander Position: [facility] PCO Associate Professional Member Role: PCP Address: [address] [place] [id number] Telecom: Name: Sujatha Macedo RN Position: S RN Member Role: Primary Care Nurse Name: Bessy Soto RN Position: S RN Member Role: Primary Care Nurse Care Team Related Persons Name: WADE COSTELLO Name: RALF VELIZ Insurance Providers Guarantor name: JUD COSTELLO Health Plan Information #: 1 Payer: [employer] Member Number: NA Policy Number: NA Group Number: NA
--- OUTSIDE RECORDS SUMMARY | 2024-10-08 03:18 | XMS_ITS | Continuity of Care Document ---
Author Organization [facility] Robby Nito lt Address [address] [place] [address]- Care Team Providers Care Line Analyst Name Role Phone Perry OROZCO, Naz Alexander Primary Care Physician Encounter [facility] [place] [place] Date(s): 09/01/24 - 10/01/24 [facility] [place], operated [facility] Adult [address] [place] [address]- Encounter Type: Triage Allergies, Adverse Reactions, Alerts [...] 11/30/20 Recorded SARS-CoV-2 (COVID-19) mRNA BNT-162b2 vac 4/15/21 Recorded SARS-CoV-2 (COVID-19) mRNA BNT-162b2 vac 10/23/20 Recorded tetanus/diphtheria/pertussis, acel(Tdap) 04/18/19 Given Pneumococcal Vacc (oldterm) 5 04/25/12 Given FluLaval (oldterm) 6 04/25/12 Given FluLaval (oldterm) 7 06/17/10 Given Tet/Diphth/Acel, Pertussis (oldterm) 11/01/08 Give n Influenza Inactive (IM) (oldterm) 8 05/18/08 Given 1Early/Late Reason: Early/Late Reason: Other : NOT RECORDED 2Result Comment: [id number] 3Result Comment: [facility]: [id number] EXP: [id number] 4Result Comment: [04/19/2017] radha [facility] [id number] 5Admin Note: VIS GIVEN 6Admin Note: [...] Maintenance, 03/31/24 11:31:00 AM EDT, [facility], 170, cm, 03/02/24 11:09:00 EDT, Height, 65.3, kg, 12/30/23 9:42:00 EDT, Dry Weight Start Date: 03/31/24 Status: Ordered Quantity: 90.0 Unit: tablet Repeat number: 1 apixaban 5 mg oral tablet 0.5 tablet = 2.5 mg, By Mouth, 2 times a day, # 90 tablet, 2 Refills, Maintenance, 08/18/23 7:38:00 AM EST, Tablet, [facility]/pharmacy #0693, Partial fill upon patient request if [...] 2 Refills, Maintenance, 09/08/24 10:56:00 AM EST, [facility], 170, cm, 09/02/24 11:00:00 EST, Height, 65.3, kg, 12/30/23 9:42:00 EDT, Dry Weight Start Date: 09/08/24 Status: Ordered Quantity: 90.0 Unit: tablet Repeat number: 1 fluticasone 50 mcg/inh nasal spray See Instructions, SPRAY 2 SPRAYS INTO BOTH NOSTRILS DAILY, # 48 mL, 2 Refills, 04/12/23 1:23:00 PM EDT, [facility]/pharmacy #0693, SPRAY 2 SPRAYS INTO BOTH NOSTRILS DAILY, 170, cm, 04/12/23 13:09:00 EDT, Height, 63.5, kg, 04/07/23 18:58:00 EDT, Dry Weight Start Date: 04/12/23 Status: Ordered Quantity: 48.0 Unit: mL Repeat number: 3 hydrochlorothiazide-losartan 12.5 mg-100 mg oral tablet 1 tablet, By Mouth, Daily, # 90 tablet, 1 Refills, Maintenance, 08/24/24 12:51:00 PM EST, [facility], 90, TAKE 1 TABLET BY MOUTH EVERY DAY., 170, cm, 03/02/24 11:09:00 EDT, Height, 65.3, kg, 12/30/23 9:42:00 EDT, Dry Weight Start Date: 08/24/24 Status: Ordered Quantity: 90.0 Unit: tablet Repeat number: 1 lithium 450 mg oral tablet, extended release 1 tablet, By Mouth, Daily, # 90 tablet, 1 Refills, Maintenance, 08/24/24 12:51:00 PM EST, [facility], 170, cm, 03/02/24 11:09:00 EDT, Height, 65.3, kg, 12/30/23 9:42:00 EDT, Dry Weight Start Date: 08/24/24 Status: Ordered Quantity: 90.0 Unit: tablet Repeat number: 1 Metoprolol Tartrate 50 mg oral tablet 1 tablet, By Mouth, 2 times a day, # 180 tablet, 1 Refills, Maintenance, 10/26/23 11:54:00 AM EDT, [facility]/pharmacy #0693, 170, cm, 09/30/23 8:49:00 EST, Height, 64.9, kg, 09/30/23 8:49:00 EST, Dry Weight Start Date: 10/26/23 Status: Ordered Quantity: 180.0 Unit: tablet Repeat number: 2 Pulmicort Flexhaler 180 mcg 1 puffs, Inhalation, 2 times a day, # 1 each, 1 Refills, Maintenance, 09/02/24 11:45:00 AM EST, [facility]/pharmacy #0693, Partial fill upon patient request if [...] 5:30:00 PM EDT, Route to Pharmacy Electronically, [facility], 170, cm, 03/02/24 11:09:00 EDT, Height, 65.3, kg, 12/30/23 9:42:00 EDT, Dry Weight Start Date: 04/05/24 Status: Ordered Quantity: 90.0 Unit: tablet Repeat number: 1 traZODone 100 mg oral tablet 1, tablet, By Mouth, Daily at bedtime, # 90 tablet, Refills 1, Maintenance, 06/16/24 8:27:00 AM EST, Route to Pharmacy Electronically, [facility], 170, cm, 03/02/24 11:09:00 EDT, Height, 65.3, [...] Personnel Name: Perry OROZCO, Naz Alexander Position: [facility] Associate Professional Member Role: PCP Address: [address] [place] [id number] Telecom: Name: Sujatha Macedo RN Position: S RN Member Role: Primary Care Nurse Name: Bessy Soto RN Position: S RN Member Role: Primary Care Nurse Care Team Related Persons Name: WADE COSTELLO Name: RALF VELIZ Insurance Providers Guarantor name: JUD COSTELLO Health Plan Information #: 1 Payer: [employer] Member Number: NA Policy Number: NA Group Number: NA
--- OUTSIDE RECORDS SUMMARY | 2024-10-08 03:19 | XMS_ITS ---
Author Organization [facility] Address [address] [place] [address] Care Team Providers Care Comb Winder Name Role Phone Perry OROZCO, Naz Primary Care Provider Unavail Stefan John Unavailable [phone] Encounters Encounter Location Date Provider Diagnosis [address] [address] 11/09/2023 Stefan Carvalho Plan Of Treatment No Information Progress Notes * Beatriz COSTELLODOB:1960 ( 64 yo F)Acc No.[id number]:11/09/2023 Progress Note Patient:Beatriz POWER Provider:?Stefan Carvalho DPM :1960???Age:63 Y???Sex:Female D ate:11/09/2023 Address:[address] [place] [address] [place], [id number] Pcp:Naz Amador NP Subjective: * Chief Complaints: * ??? * Medical History:? Objective: * Vitals:? Assessment: Plan: * Treatment: * Images: * The named appointment provid er may or may not be the originator of this progress note, and it is not deemed complete until electronically signed by the appointment provider. Sign off status: Pending * Provider:?Stefan Carvalho DPM Date:?2023 Generated for Printi bennie/Faxing/eTransmitting on:?10/08/2024 03:19 AM EDT
--- OUTSIDE RECORDS SUMMARY | 2024-10-08 03:19 | XMS_ITS | Continuity of Care Document ---
Author Organization [facility] Robby Nito lt Address [address] [place] [address]- Care Team Providers Care Satellite Dish Repairer Name Role Phone Perry OROZCO, Naz Alexander Primary Care Physician Encounter [facility] [place] Date(s): 08/24/24 - 09/23/24 [facility] Adult [address] [place] [address]- Encounter Type: Triage Allergies, Adverse Reactions, Alerts [...] Reason: Other : NOT RECORDED 2Result Comment: [id number] 3Result Comment: [facility]: [id number] EXP: [id number] 4Result Comment: [04/19/2017] radha [facility] [id number] 5Admin Note: VIS GIVEN 6Admin Note: [...] Maintenance, 03/31/24 11:31:00 AM EDT, [facility], 170, cm, 03/02/24 11:09:00 EDT, Height, 65.3, kg, 12/30/23 9:42:00 EDT, Dry Weight Start Date: 03/31/24 Status: Ordered Quantity: 90.0 Unit: tablet Repeat number: 1 apixaban 5 mg oral tablet 0.5 tablet = 2.5 mg, By Mouth, 2 times a day, # 90 tablet, 2 Refills, Maintenance, 08/18/23 7:38:00 AM EST, Tablet, [facility]/pharmacy #0693, Partial fill upon patient request [...] 2 Refills, Maintenance, 09/08/24 10:56:00 AM EST, [facility], 170, cm, 09/02/24 11:00:00 EST, Height, 65.3, kg, 12/30/23 9:42:00 EDT, Dry Weight Start Date: 09/08/24 Status: Ordered Quantity: 90.0 Unit: tablet Repeat number: 1 fluticasone 50 mcg/inh nasal spray See Instructions, SPRAY 2 SPRAYS INTO BOTH NOSTRILS DAILY, # 48 mL, 2 Refills, 04/12/23 1:23:00 PM EDT, [facility]/pharmacy #0693, SPRAY 2 SPRAYS INTO BOTH NOSTRILS DAILY, 170, cm, 04/12/23 13:09:00 EDT, Height, 63.5, kg, 04/07/23 18:58:00 EDT, Dry Weight Start Date: 04/12/23 Status: Ordered Quantity: 48.0 Unit: mL Repeat number: 3 hydrochlorothiazide-losartan 12.5 mg-100 mg oral tablet 1 tablet, By Mouth, Daily, # 90 tablet, 1 Refills, Maintenance, 08/24/24 12:51:00 PM EST, [facility] 00668, 90, TAKE 1 TABLET BY MOUTH EVERY DAY., 170, cm, 03/02/24 11:09:00 EDT, Height, 65.3, kg, 12/30/23 9:42:00 EDT, Dry Weight Start Date: 08/24/24 Status: Ordered Quantity: 90.0 Unit: tablet Repeat number: 1 lithium 450 mg oral tablet, extended release 1 tablet, By Mouth, Daily, # 90 tablet, 1 Refills, Maintenance, 08/24/24 12:51:00 PM EST, [facility] STORE 73034, 170, cm, 03/02/24 11:09:00 EDT, Height, 65.3, kg, 12/30/23 9:42:00 EDT, Dry Weight Start Date: 08/24/24 Status: Ordered Quantity: 90.0 Unit: tablet Repeat number: 1 Metoprolol Tartrate 50 mg oral tablet 1 tablet, By Mouth, 2 times a day, # 180 tablet, 1 Refills, Maintenance, 10/26/23 11:54:00 AM EDT, [facility]/pharmacy #0693, 170, cm, 09/30/23 8:49:00 EST, Height, 64.9, kg, 09/30/23 8:49:00 EST, Dry Weight Start Date: 10/26/23 Status: Ordered Quantity: 180.0 Unit: tablet Repeat number: 2 Pulmicort Flexhaler 180 mcg 1 puffs, Inhalation, 2 times a day, # 1 each, 1 Refills, Maintenance, 09/02/24 11:45:00 AM EST, [facility]/pharmacy #0693, Partial fill upon patient request [...] 5:30:00 PM EDT, Route to Pharmacy Electronically, [facility], 170, cm, 03/02/24 11:09:00 EDT, Height, 65.3, kg, 12/30/23 9:42:00 EDT, Dry Weight Start Date: 04/05/24 Status: Ordered Quantity: 90.0 Unit: tablet Repeat number: 1 traZODone 100 mg oral tablet 1, tablet, By Mouth, Daily at bedtime, # 90 tablet, Refills 1, Maintenance, 06/16/24 8:27:00 AM EST, Route to Pharmacy Electronically, [facility], 170, cm, 03/02/24 11:09:00 EDT, Height, 65.3, [...] Personnel Name: Perry OROZCO, Naz Alexander Position: [facility] PCO Associate Professional Member Role: PCP Address: [address] [place] [id number] Telecom: Name: Sujatha Macedo RN Position: S RN Member Role: Primary Care Nurse Name: Bessy Soto RN Position: S RN Member Role: Primary Care Nurse Care Team Related Persons Name: WADE COSTELLO Name: RALF VELIZ Insurance Providers Guarantor name: JUD COSTELLO Health Plan Information #: 1 Payer: [employer] Member Number: NA Policy Number: NA Group Number: NA
--- OUTSIDE RECORDS SUMMARY | 2024-10-08 03:19 | XMS_ITS ---
Author Organization [facility] Address [address] [place] [address] Care Team Providers Care Check Processing Clerk Name Role Phone Perry OROZCO, Naz Primary Care Provider Unavail Stefan John Unavailable [phone] Encounters Encounter Location Date Provider Diagnosis [address] [address] 01/14/2024 Stefan Carvalho Plan Of Treatment No Information Progress Notes * Beatriz COSTELLODOB:1960 ( 64 yo F)Acc No.[id number]:01/14/2024 Progress Note Patient:Beatriz POWER Provider:?Stefan Carvalho DPM :1960???Age:64 Y???Sex:Female D ate:01/14/2024 Address:[address] [place] [address] Rob[place]ICKES, [id number] Pcp:Naz Amador NP Subjective: * Chief Complaints: * ??? * Medical History:? Objective: * Vitals:? Assessment: Plan: * Treatment: * Images: * The named appointment provid er may or may not be the originator of this progress note, and it is not deemed complete until electronically signed by the appointment provider. Sign off status: Pending * Provider:?Stefan Carvalho DPM Date:?2023 Generated for Printi ng/Fareynaldog/eTransmitting on:?10/08/2024 03:18 AM EDT
--- OUTSIDE RECORDS SUMMARY | 2024-10-08 03:19 | XMS_ITS | Continuity of Care Document ---
Author Organization [facility] Address [address] [place] [address]- Care Team Providers Care Quantitative Analyst Developer Name Role Phone Perry OROZCO, Naz Alexander Primary Care [id number] - 09/09/24 [facility] [address] [place] [address]- Encounter Diagnosis COPD with acute bronchitis(Discharge Diagnosis) - 09/02/24 Attending Physician: Silvana Oliveros MD Referring Physician: Perry OROZCO, Naz Alexander Encounter Type: Office Visit Allergies, Adverse Reactions, Alerts Substance Criticality Severity [...] Reason: Other : NOT RECORDED 2Result Comment: [id number] 3Result Comment: [facility]: [id number] EXP: [id number] 4Result Comment: [04/19/2017] radha [facility] [id number] 5Admin Note: VIS GIVEN 6Admin Note: VIS GIVEN 7Admin Note: BIOMEDICAL LELA given by DG 8Admin Note: given in clinic Medications Albuterol (Eqv-ProAir HFA) 90 mcg/inh inhalation aerosol 2 puffs, Inhalation, Every 6 hours, PRN Wheezing/Shortness of Breath, # 6.7 Gm, 1 Refills, Maintenance, 06/08/23 8:35:00 AM EST, [facility], Partial fill upon patient request if the [...] Maintenance, 03/31/24 11:31:00 AM EDT, [facility], 170, cm, 03/02/24 11:09:00 EDT, Height, 65.3, kg, 12/30/23 9:42:00 EDT, Dry Weight Start Date: 03/31/24 Status: Ordered Quantity: 90.0 Unit: tablet Repeat number: 1 apixaban 5 mg oral tablet 0.5 tablet = 2.5 mg, By Mouth, 2 times a day, # 90 tablet, 2 Refills, Maintenance, 08/18/23 7:38:00 AM EST, Tablet, [facility]/pharmacy #0693, Partial fill upon patient [...] 2 Refills, Maintenance, 09/08/24 10:56:00 AM EST, [facility], 170, cm, 09/02/24 11:00:00 EST, Height, 65.3, kg, 12/30/23 9:42:00 EDT, Dry Weight Start Date: 09/08/24 Status: Ordered Quantity: 90.0 Unit: tablet Repeat number: 1 fluticasone 50 mcg/inh nasal spray See Instructions, SPRAY 2 SPRAYS INTO BOTH NOSTRILS DAILY, # 48 mL, 2 Refills, 04/12/23 1:23:00 PM EDT, [facility]/pharmacy #0693, SPRAY 2 SPRAYS INTO BOTH NOSTRILS DAILY, 170, cm, 04/12/23 13:09:00 EDT, Height, 63.5, kg, 04/07/23 18:58:00 EDT, Dry Weight Start Date: 04/12/23 Status: Ordered Quantity: 48.0 Unit: mL Repeat number: 3 hydrochlorothiazide-losartan 12.5 mg-100 mg oral tablet 1 tablet, By Mouth, Daily, # 90 tablet, 1 Refills, Maintenance, 08/24/24 12:51:00 PM EST, [facility], 90, TAKE 1 TABLET BY MOUTH EVERY DAY., 170, cm, 03/02/24 11:09:00 EDT, Height, 65.3, kg, 12/30/23 9:42:00 EDT, Dry Weight Start Date: 08/24/24 Status: Ordered Quantity: 90.0 Unit: tablet Repeat number: 1 lithium 450 mg oral tablet, extended release 1 tablet, By Mouth, Daily, # 90 tablet, 1 Refills, Maintenance, 08/24/24 12:51:00 PM EST, [facility], 170, cm, 03/02/24 11:09:00 EDT, Height, 65.3, kg, 12/30/23 9:42:00 EDT, Dry Weight Start Date: 08/24/24 Status: Ordered Quantity: 90.0 Unit: tablet Repeat number: 1 Metoprolol Tartrate 50 mg oral tablet 1 tablet, By Mouth, 2 times a day, # 180 tablet, 1 Refills, Maintenance, 10/26/23 11:54:00 AM EDT, [facility]/pharmacy #0693, 170, cm, 09/30/23 8:49:00 EST, Height, 64.9, kg, 09/30/23 8:49:00 EST, Dry Weight Start Date: 10/26/23 Status: Ordered Quantity: 180.0 Unit: tablet Repeat number: 2 Pulmicort Flexhaler 180 mcg 1 puffs, Inhalation, 2 times a day, # 1 each, 1 Refills, Maintenance, 09/02/24 11:45:00 AM EST, [facility]/pharmacy #0693, Partial fill upon patient [...] EDT, Route to Pharmacy Electronically, [facility], 170, cm, 03/02/24 11:09:00 EDT, Height, 65.3, kg, 12/30/23 9:42:00 EDT, Dry Weight Start Date: 04/05/24 Status: Ordered Quantity: 90.0 Unit: tablet Repeat number: 1 traZODone 100 mg oral tablet 1, tablet, By Mouth, Daily at bedtime, # 90 tablet, Refills 1, Maintenance, 06/16/24 8:27:00 AM EST, Route to Pharmacy Electronically, [facility], 170, cm, 03/02/24 11:09:00 EDT, Height, 65.3, [...] Tobacco abuse Confirmed Active Wheezing Confirmed Active Diagnosis Diagnosis Type Effective Dates Health Status Clinical Service Informant COPD with acute bronchitis Discharge Diagnosis 09/02/24 Vital Signs Most recent to oldest [Reference Range]: 1 Height 170 cm (09/02/24 11:00 AM) Oxygen Saturation [94-100 %] 97 % (09/02/24 11:00 AM) Pulse Rate [55-90 bpm] 77 bpm (09/02/24 11:00 AM) Blood Pressure [90-138/55-84 mm Hg] 98/6 7mm Hg (09/02/24 11:00 AM) Temperature [96.8-100.4 DegF] 98.8 DegF (09/02/24 11:00 AM) Mode of Delivery (Oxygen) Room air (09/02/24 11:00 AM) Blood pressure sites Arm, left (09/02/24 11:00 AM) Temperature Route Temporal (09/02/24 11:00 AM) Social History Social History Type Response Smoking Status 10 or more cigarette s (1/2 pack or more)/day in last 30 days; Interested in cessation: No; Patient wants NRT during admission No entered on: 08/11/23 Sex Sex Representation Female (finding) Patient Care team information Care Team Personnel Name: Perry OROZCO, Naz Alexander Position: [facility] PCO Associate Professional Member Role: PCP Address: [address] [place] [address]- Telecom: Name: Sujatha Macedo RN Position: S RN Member Role: Primary Care Nurse Name: Bessy Soto RN Position: [facility] RN Member Role: Primary Care Nurse Care Team Related Persons Name: WADE COSTELLO Name: RALF VELIZ Insurance Providers Guarantor name: JUD COSTELLO Health Plan Information #: 1 Payer: [employer] Member Number: [id number] Policy Number: NA Group Number: NA Health Plan Information #: 2 Payer: [employer] Member Number: [id number] Policy Number: NA Group Number: NA
--- OUTSIDE RECORDS SUMMARY | 2024-10-08 03:19 | XMS_ITS | Continuity of Care Document ---
Author Organization [facility] Address [address] [place] [address]- Care Team Providers Care Harpsichord Maker Name Role Phone Perry OROZCO, Naz Alexander [id number] 10[facility] [address] [place], [place] [address] Attending Physician: Not on Staff, Attending MD Referring Physician: Not on Staff, Referring MD Encounter Type: Pre Office Visit Allergies, Adverse Reactions, Alerts Substance [...] Reason: Other : NOT RECORDED 2Result Comment: [id number] 3Result Comment: [facility]: [id number] EXP: [id number] 4Result Comment: [04/19/2017] radha [facility] [id number] 5Admin Note: VIS GIVEN 6Admin [...] Maintenance, 03/31/24 11:31:00 AM EDT, [facility], 170, cm, 03/02/24 11:09:00 EDT, Height, 65.3, kg, 12/30/23 9:42:00 EDT, Dry Weight Start Date: 03/31/24 Status: Ordered Quantity: 90.0 Unit: tablet Repeat number: 1 apixaban 5 mg oral tablet 0.5 tablet = 2.5 mg, By Mouth, 2 times a day, # 90 tablet, 2 Refills, Maintenance, 08/18/23 7:38:00 AM EST, Tablet, [facility]/pharmacy #0693, Partial fill upon patient [...] 2 Refills, Maintenance, 09/08/24 10:56:00 AM EST, [facility] STORE 23935, 170, cm, 09/02/24 11:00:00 EST, Height, 65.3, kg, 12/30/23 9:42:00 EDT, Dry Weight Start Date: 09/08/24 Status: Ordered Quantity: 90.0 Unit: tablet Repeat number: 1 fluticasone 50 mcg/inh nasal spray See Instructions, SPRAY 2 SPRAYS INTO BOTH NOSTRILS DAILY, # 48 mL, 2 Refills, 04/12/23 1:23:00 PM EDT, [facility]/pharmacy #0693, SPRAY 2 SPRAYS INTO BOTH NOSTRILS DAILY, 170, cm, 04/12/23 13:09:00 EDT, Height, 63.5, kg, 04/07/23 18:58:00 EDT, Dry Weight Start Date: 04/12/23 Status: Ordered Quantity: 48.0 Unit: mL Repeat number: 3 hydrochlorothiazide-losartan 12.5 mg-100 mg oral tablet 1 tablet, By Mouth, Daily, # 90 tablet, 1 Refills, Maintenance, 08/24/24 12:51:00 PM EST, [facility] 346[facility], 90, TAKE 1 TABLET BY MOUTH EVERY DAY., 170, cm, 03/02/24 11:09:00 EDT, Height, 65.3, kg, 12/30/23 9:42:00 EDT, Dry Weight Start Date: 08/24/24 Status: Ordered Quantity: 90.0 Unit: tablet Repeat number: 1 lithium 450 mg oral tablet, extended release 1 tablet, By Mouth, Daily, # 90 tablet, 1 Refills, Maintenance, 08/24/24 12:51:00 PM EST, [facility], 170, cm, 03/02/24 11:09:00 EDT, Height, 65.3, kg, 12/30/23 9:42:00 EDT, Dry Weight Start Date: 08/24/24 Status: Ordered Quantity: 90.0 Unit: tablet Repeat number: 1 Metoprolol Tartrate 50 mg oral tablet 1 tablet, By Mouth, 2 times a day, # 180 tablet, 1 Refills, Maintenance, 10/26/23 11:54:00 AM EDT, [facility]/pharmacy #0693, 170, cm, 09/30/23 8:49:00 EST, Height, 64.9, kg, 09/30/23 8:49:00 EST, Dry Weight Start Date: 10/26/23 Status: Ordered Quantity: 180.0 Unit: tablet Repeat number: 2 Pulmicort Flexhaler 180 mcg 1 puffs, Inhalation, 2 times a day, # 1 each, 1 Refills, Maintenance, 09/02/24 11:45:00 AM EST, [facility]/pharmacy #0693, Partial fill upon patient [...] EDT, Route to Pharmacy Electronically, [facility], 170, cm, 03/02/24 11:09:00 EDT, Height, 65.3, kg, 12/30/23 9:42:00 EDT, Dry Weight Start Date: 04/05/24 Status: Ordered Quantity: 90.0 Unit: tablet Repeat number: 1 traZODone 100 mg oral tablet 1, tablet, By Mouth, Daily at bedtime, # 90 tablet, Refills 1, Maintenance, 06/16/24 8:27:00 AM EST, Route to Pharmacy Electronically, [facility], 170, cm, 03/02/24 11:09:00 EDT, Height, 65.3, [...] Personnel Name: Perry OROZCO, Naz Alexander Position: [facility] PCO Associate Professional Member Role: PCP Address: [address] [place] [id number] Telecom: Name: Sujatha Macedo RN Position: S RN Member Role: Primary Care Nurse Name: Bessy Soto RN Position: [facility] RN Member Role: Primary Care Nurse Care Team Related Persons Name: WADE COSTELLO Name: RALF VELIZ Insurance Providers Guarantor name: JUD COSTELLO Health Plan Information #: 2 Payer: [employer] Member Number: [id number] Policy Number: NA Group Number: NA Health Plan Information #: 1 Payer: MEDICARE PART B OUTPT Member Number: [id number] Policy Number: NA Group Number: NA
--- OUTSIDE RECORDS SUMMARY | 2024-10-08 03:19 | XMS_ITS | Continuity of Care Document ---
Author Organization [facility] ([facility] Address [address] [place] [address]- Care Team Providers Care Hr Business Partner Consultant Name Role Phone Perry OROZCO, Naz Alexander Primary Care Physician [phone] [place] [facility] [place]): [place]24 - 09/28/24 [facility] [address] [place] [address]- Encounter Type: Triage Allergies, Adverse Reactions, Alerts [...] Reason: Other : NOT RECORDED 2Result Comment: [id number] 3Result Comment: [facility]: [id number] EXP: [id number] 4Result Comment: [04/19/2017] radha [facility] [id number] 5Admin Note: VIS GIVEN 6Admin Note: [...] Maintenance, 03/31/24 11:31:00 AM EDT, [facility], 170, cm, 03/02/24 11:09:00 EDT, Height, 65.3, kg, 12/30/23 9:42:00 EDT, Dry Weight Start Date: 03/31/24 Status: Ordered Quantity: 90.0 Unit: tablet Repeat number: 1 apixaban 5 mg oral tablet 0.5 tablet = 2.5 mg, By Mouth, 2 times a day, # 90 tablet, 2 Refills, Maintenance, 08/18/23 7:38:00 AM EST, Tablet, [facility]/pharmacy #[id number], Partial fill upon patient request if [...] 2 Refills, Maintenance, 09/08/24 10:56:00 AM EST, [facility], 170, cm, 09/02/24 11:00:00 EST, Height, 65.3, kg, 12/30/23 9:42:00 EDT, Dry Weight Start Date: 09/08/24 Status: Ordered Quantity: 90.0 Unit: tablet Repeat number: 1 fluticasone 50 mcg/inh nasal spray See Instructions, SPRAY 2 SPRAYS INTO BOTH NOSTRILS DAILY, # 48 mL, 2 Refills, 04/12/23 1:23:00 PM EDT, [facility]/pharmacy #[id number], SPRAY 2 SPRAYS INTO BOTH NOSTRILS DAILY, 170, cm, 04/12/23 13:09:00 EDT, Height, 63.5, kg, 04/07/23 18:58:00 EDT, Dry Weight Start Date: 04/12/23 Status: Ordered Quantity: 48.0 Unit: mL Repeat number: 3 hydrochlorothiazide-losartan 12.5 mg-100 mg oral tablet 1 tablet, By Mouth, Daily, # 90 tablet, 1 Refills, Maintenance, 08/24/24 12:51:00 PM EST, [facility], 90, TAKE 1 TABLET BY MOUTH EVERY DAY., 170, cm, 03/02/24 11:09:00 EDT, Height, 65.3, kg, 12/30/23 9:42:00 EDT, Dry Weight Start Date: 08/24/24 Status: Ordered Quantity: 90.0 Unit: tablet Repeat number: 1 lithium 450 mg oral tablet, extended release 1 tablet, By Mouth, Daily, # 90 tablet, 1 Refills, Maintenance, 08/24/24 12:51:00 PM EST, [facility], 170, cm, 03/02/24 11:09:00 EDT, Height, 65.3, kg, 12/30/23 9:42:00 EDT, Dry Weight Start Date: 08/24/24 Status: Ordered Quantity: 90.0 Unit: tablet Repeat number: 1 Metoprolol Tartrate 50 mg oral tablet 1 tablet, By Mouth, 2 times a day, # 180 tablet, 1 Refills, Maintenance, 10/26/23 11:54:00 AM EDT, [facility]/pharmacy #[id number], 170, cm, 09/30/23 8:49:00 EST, Height, 64.9, kg, 09/30/23 8:49:00 EST, Dry Weight Start Date: 10/26/23 Status: Ordered Quantity: 180.0 Unit: tablet Repeat number: 2 Pulmicort Flexhaler 180 mcg 1 puffs, Inhalation, 2 times a day, # 1 each, 1 Refills, Maintenance, 09/02/24 11:45:00 AM EST, [facility]/pharmacy #[id number], Partial fill upon patient request if [...] 5:30:00 PM EDT, Route to Pharmacy Electronically, [facility], 170, cm, 03/02/24 11:09:00 EDT, Height, 65.3, kg, 12/30/23 9:42:00 EDT, Dry Weight Start Date: 04/05/24 Status: Ordered Quantity: 90.0 Unit: tablet Repeat number: 1 traZODone 100 mg oral tablet 1, tablet, By Mouth, Daily at bedtime, # 90 tablet, Refills 1, Maintenance, 06/16/24 8:27:00 AM EST, Route to Pharmacy Electronically, [facility], 170, cm, 03/02/24 11:09:00 EDT, Height, 65.3, [...] Personnel Name: Perry OROZCO, Naz Alexander Position: [facility] PCO Associate Professional Member Role: PCP Address: [address] [place] [id number] Telecom: Name: Sujatha Macedo RN Position: S RN Member Role: Primary Care Nurse Name: Bessy Soto RN Position: S RN Member Role: Primary Care Nurse Care Team Related Persons Name: WADE COSTELLO Name: RALF VELIZ Insurance Providers Guarantor name: JUD COSTELLO Health Plan Information #: 1 Payer: [employer] Member Number: NA Policy Number: NA Group Number: NA
[2024-10-08] MEDS: Apixaban 5 MG TABLET 10 MG PO (03:20)
[2024-10-08 03:32] VITALS: BP 157/84; PULSE 67; RESP 16; TEMP 36.5; O2SAT 97
[2024-10-11 21:18] LABS: Anti-Thrombin III Antigen 101 % normal (80-120)
[2024-10-12 00:53] LABS: Anti-Thrombin III Activity 132 % normal (80-135); Protein C Activity 109 % normal (70-180); Protein S Activity rflx Tot&Fr 78 % normal (60-140)
[2024-10-12 05:24] LABS: PTT (LAC) Screen 35 sec (<=40)
[2024-10-13 14:19] LABS: Factor V Leiden NEGATIVE
[2024-10-18 17:23] LABS: Prothrombin 20210A NEGATIVE
== END 2024-10-08 03:41 | disposition home or self-care (01) ==
PROVIDERS: Emergency Provider Emergency Medicine Emergency Medical Services; PCP Nurse Practitioner Family
DX: I82.4Z2 Acute embolism and thrombosis of unspecified deep veins of left distal lower extremity (principal); R60.0 Localized edema; I10 Essential (primary) hypertension; F17.210 Nicotine dependence, cigarettes, uncomplicated; Z79.899 Other long term (current) drug therapy
CPT/HCPCS: 36415; 80053; 81240; 81241; 85025; 85300; 85301; 85302; 85303; 85306; 85379; 85597; 85598; 85610; 85613; 85730; 93971; 99284

== ENCOUNTER → 2024-10-07 23:11 | Outpatient (BNV) | payer MEDICARE, MEDICAID, SELFPAY | PROVIDERS: Emergency Provider Emergency Medicine Emergency Medical Services; PCP Nurse Practitioner Family; Visit Provider Radiology Neuroradiology | DX: I82.412 Acute embolism and thrombosis of left femoral vein (principal) | CPT/HCPCS: 93971 ==

== ENCOUNTER 2025-06-01 10:43 | Emergency (ER) | payer MEDICAID, SELFPAY ==
--- OUTSIDE RECORDS SUMMARY | 2024-01-14 05:30 | XMS_ITS ---
Author Organization [facility] Address [address] [place] [address] Care Team Providers Care Sr. Payroll Manager Name Role Phone Perry OROZCO, Naz Primary Care Provider Unavail Stefan John Unavailable [phone] Encounters Encounter Location Date Provider Diagnosis [address] [id number] 01/14/2024 Stefan Carvalho Plan Of Treatment No Information Progress Notes * Beatriz COSTELLODOB:1960 ( 65 yo F)Acc No.[id number]:01/14/2024 Progress Note Patient: Beatriz MARTINEZ Provider: Anneliese Carvalho DPM :1960 A ge:64 Y S ex:Female Date:01/14/2024 Address:[address] [place] [address] [place]ina [place], [id number] Pcp:Naz Amador NP Subjective: * Chief Complaints: * * Medical History: Objective: * Vitals: Assessment: Plan: * Treatment: * Images: * The named appointment provid er may or may not be the originator of this progress note, and it is not deemed complete until electronically signed by the appointment provider. Sign off status: Pending * Provider: Anneliese Carvalho DPM Date: 0 01/14/2024 Generated for Lita avery/Adamaris/eTransmitting on: 1 12:33 PM EDT
--- NOTE | ~2025-06-01 | XR_ITS ---
EXAMINATION: XR CHEST 2 VIEWS HISTORY: dizziness, chest pain COMPARISON: Comparison is made with the prior examination dated 05/22/2022. FINDINGS: PA and lateral views of the chest are submitted. The lungs are mildly hyperinflated, but clear. There is mild biapical pleural thickening. There is no pleural effusion, pneumothorax, or pulmonary vascular congestion. The heart is normal in size. The bones are intact. XR/XR chest 2V IMPRESSION: COPD. No acute cardiopulmonary abnormality. Electronically signed by: Gilberto Yi MD 06/01/2025 11:36 AM EDT
[2025-06-01 10:44] VITALS: BP 119/58; PULSE 82; RESP 18; TEMP 36.4; O2SAT 91; BMI 20.8
--- NOTE | 2025-06-01 10:45 | ED.GENADULT ---
HPI - General Adult General Chief complaint: Dizziness Stated complaint: Dizzy Cloudy Eyes Etc Sent by [facility] Time Seen by Provider: 06/01/25 11:09 Source: patient Mode of arrival: ambulatory Limitations: no limitations History of Present Illness ED Provider: HPI narrative: 65-year-old woman on blood thinners for history of DVT, she states she saw her PCP yesterday and was doing well, today she was going to store and felt as she described dizzy, she felt things were spinning, did not have any chest pain or palpitations, she states she did have a chest pain few days ago and she had a little bit of soreness around her left shoulder. No nausea no vomiting no diaphoresis reported. Related Data Previous Rx's ?Medication ?Instructions ?Recorded cyclobenzaprine 5 mg tablet 5 mg PO TID PRN muscle spasm #10 04/04/23 tabs apixaban 5 mg (74 tabs) tablets in 5 mg PO BID #74 ea 10/08/24 a dose pack (Envysion DVT-PE Treat 30D Start) meclizine 12.5 mg tablet 12.5 mg PO TID PRN vertigo 5 days 06/01/25 #20 tabs Allergies Allergy/AdvReac Type Severity Reaction Status Date / Time acetaminophen (From Percocet) AdvReac Palpitation Verified 06/01/25 10:46 s oxycodone (From Percocet) AdvReac Palpitation Verified 06/01/25 10:46 s varenicline (From Chantix) AdvReac Vomiting Verified 06/01/25 10:46 Review of Systems Constitutional: Constitutional: Reports as per [facility] Social History Social History Patient Tobacco Use Status: Current everyday Tobacco user Smoked in Last 30 Days: No Use of substances other than those prescribed or required for medical reasons: No Advance Directives: Yes Advance Directives Information Provided: No Advance Directives on File: No Do you have a plan to hurt others: No Plan Patient : No Physical Exam ED Exam Exam: General: ?Appears of stated age ? ?PERRLA, EOMI, MMM, ? Neck: Supple, no LAD ? ?CV: RRR, no obvious murmurs appreciated ? ?Resp: ?No wheezing rales rhonchi no stridor moving air well ? Abd: ?Bowel sounds are present, no tenderness no rebound no rigidity ? ?MSK: FROM, strength 5/5 all extremities ? Skin: Warm, dry, intact, ? ?Neuro: ?Alert and oriented x3, moving upper and lower extremities symmetrically, no obvious facial asymmetry noted, cranial nerves 2-12 intact, patient had symptoms look into the left without obvious nystagmus no vertical no horizontal nystagmus, no rotary nystagmus,, no dysmetria upper or lower extremities Vital Signs: Vital Signs - 24 hr 06/01/25 10:44 Temperature 97.5 F Pulse Rate 82 Respiratory Rate 18 Blood Pressure 119/58 L Pulse Oximetry 91 L Oxygen Delivery Method Room Air BMI result Body Mass Index 20.8 Course Course Course Narrative: This is a Rapid Medical Examination (RME) performed by Fidel Siddiqi PA-C in triage. Full HPI, ROS, assessment and treatment plan per primary provider in the Main ED. Hx: 65 yo F here for eval of dizziness (light headedness), nausea without vomiting, cloudy vision in both eyes x15 minutes. no dizziness at rest at present. endorses left sided chest pain x2-3 days. now having a slight headache. denies weakness/confusion. no hx of similar. hx of DVT on Eliquis. hx of drug/ etoh abuse, in remission x19 years. called PCP, advised to come to the ED. PE: no slurred speech, facial droop or pronator drift. ambulating with steady gait. Plan: labs, ekg, cxr - patient being brought back to main ED bed, will defer advanced imaging. Medications Administered Generic Name Dose Route Start Last Admin Trade Name Freq PRN Reason Stop Dose Admin Sodium Chloride 1,000 mls @ 999 mls/hr 06/01/25 11:30 06/01/25 11:53 Ns IV 06/01/25 12:30 999 mls/hr .Q1H1M MERLYN Administration Discontinued Medications Generic Name Dose Route Start Last Admin Trade Name Freq PRN Reason Stop Dose Admin Meclizine HCl 25 mg 06/01/25 11:29 06/01/25 11:51 Meclizine Hcl 25 Mg Tablet PO 06/01/25 11:30 25 mg ONCE ONE Administration Scopolamine 1.5 mg 06/01/25 11:29 06/01/25 11:51 Scopolamine 1.5 Mg Patch.Td.3 EAR-BEHIND 06/01/25 11:30 1.5 mg ONCE ONE Administration Medical Decision Making Medical Decision Making [facility] Narrative: 11:32 AM 06/01/2025 (Dr. Sammy Fernandez): Patient's neurologic examination was reassuring I am not noting anything on exam to suspect a cerebellar stroke, she has no dysmetria, no vertical or rotary nystagmus, she did have some symptoms of dizziness as she described it looking to the left but I did not appreciate horizontal nystagmus, BPPV is a consideration with other considerations as listed below, did not feel it imaging such as CT CTA for cerebellar stroke is indicated, however I am going to make sure she is has no underlying dysrhythmia dehydration electrolyte derangements, will medicate will re-evaluate. Differential Diagnosis Differential Diagnoses: The differential diagnosis associated with the presentation includes (Dysrhythmia, ACS, dehydration, PE, vertigo, cerebellar stroke) Admission/Observation Consideration of admission/observation: Escalation of care including admission/observation considered Lab Data [facility] Lab Attestation statement: I reviewed the patient's lab results. 06/01/25 11:25 06/01/25 11:25 Labs: Lab Results 06/01/25 06/01/25 Range/Units 11:09 11:25 WBC 9.5 (4.8-10.8) X10*3/uL RBC 4.35 (4.20-5.50) X10*6/uL Hgb 13.1 (12.0-16.0) g/dl Hct 39.3 (37.0-47.0) % MCV 90.3 (80.0-98.0) fL MCH 30.1 (27.0-33.0) pg MCHC 33.3 (31.0-35.0) g/dl RDW 12.8 (11.0-16.0) % Plt Count 192 (160-400) X10*3/uL MPV 9.5 (9.4-12.3) fL Immature Gran % (Auto) 0.6 H (0.0-0.4) % Neut % (Auto) 72.2 (45-73) % Lymph % (Auto) 11.4 L (20-40) % [place] % (Auto) 12.4 H (2-11) % Eos % (Auto) 3.0 (0-4) % Baso % (Auto) 0.4 (0-2) % Lymph # (Auto) 1.1 L (1.2-4.9) X10*3/uL [place] # (Auto) 1.2 (0.1-1.2) X10*3/uL Eos # (Auto) 0.3 (0.0-0.4) X10*3/uL Baso # (Auto) 0.0 (0.0-0.2) X10*3/uL Abs Immat Gran (auto) 0.06 H (0.00-0.03) X10*3/uL Absolute Neuts (auto) 6.8 (2.0-8.3) x10*3/uL Absolute Nucleated RBC 0.000 (0.0-0.012) X10*3/uL Nucleated RBC % (auto) 0.0 (0.0-0.2) /100WBC Sodium 134 L (135-145) mmol/L Potassium 3.7 (3.3-5.1) mmol/L Chloride 103 (96-108) mmol/L Carbon Dioxide 25 (22-29) mmol/L Anion Gap 10 L (12-20) BUN 9 (9-16) mg/dL Creatinine 0.63 (0.5-1.4) mg/dL Estim Creat Clear Calc 85.9 Estimated GFR > 60 POC Glucose 131 H (60-115) mg/dL Random Glucose 96 (60-115) mg/dL Calcium 9.4 D (8.4-10.2) mg/dL Magnesium 2.0 (1.6-2.6) mg/dL Total Bilirubin 0.5 (0.0-1.0) mg/dL AST 30 (5-31) U/L ALT 123 H (0-31) U/L Alkaline Phosphatase 180 H (39-117) U/L Troponin I High Sens < 2.7 (<3.5-17.0) ng/L Total Protein 6.4 L (6.5-8.0) g/dL Albumin 3.8 (3.5-5.0) g/dL COVID-19 ([facility]) Negative (Negative) COVID-19 Clin Com See Note Influenza Type A ([facility]) Negative (Negative) Influenza Type B ([facility]INA) Negative (Negative) Influenza A & B Note See Note Independent Interpretation I performed an independent interpretation of an: EKG (73 beats per minute, otherwise normal ECG without dysrhythmia, AV mahi blocks or ST-T changes to suspect underlying ACS, my independent interpretation) and Plain X-Ray (My independent chest xray interpretation: Lungs: Lungs are clear bilaterally without evidence of focal consolidation, pleural effusion, or pneumothorax. Cardiac silhouette is unremarkable, no obvious mediastinal widening, no obvious bony abnormalities such as fractures. Impression: Normal chest X-r) Radiology Impression Discussion of test interpretation with radiology: I have reviewed the radiologist's reading. ( XR/XR chest 2V IMPRESSION: COPD. No acute cardiopulmonary abnormality.) Tests considered The following testing was considered but not selected: CT brain, CT angio Discharge Plan Discharge Clinical Impression: Vertigo Patient Disposition: Home, Self-Care Instructions: Dizziness (ED) Additional Instructions: Evaluated with dizziness, I am reassured by your workup today cardiac enzymes, EKG, chest x-ray physical examination, your exam was mostly consistent with vertigo it seemed possibly involving your left in the ear, I recommend keeping scopolamine patch in place for the next 3 days, you can use meclizine as prescribed as needed, follow up with the PCP and if you have any other concerns come back to the ER Prescriptions: New meclizine 12.5 mg tablet 12.5 mg PO TID PRN (Reason: vertigo) 5 Days Qty: 20 0RF No Action cyclobenzaprine 5 mg tablet 5 mg PO TID PRN (Reason: muscle spasm) Qty: 10 0RF Eliquis DVT-PE Treat 30D Start 5 mg (74 tabs) tablets,dose pack 5 mg PO BID Qty: 74 0RF Print Language: Guamanian
--- NOTE | 2025-06-01 10:46 | ECG_ITS ---
Test Reason : dizziness Blood Pressure : */* mmHG Vent. Rate : 73 BPM Atrial Rate : 258 BPM P-R Int : 146 ms QRS Dur : 96 ms QT Int : 374 ms P-R-T Axes : 50 22 -1 degrees QTcB Int : 412 ms Artifact in tracing Normal sinus rhythm Incomplete right bundle branch block Nonspecific ST and T wave abnormality Abnormal ECG When compared with ECG of 22-May-2022 20:49, No significant changes seen Referred By: Eloisa Siddiqi Electronically Signed By: AILYN NORMAN
[2025-06-01 11:12] LABS: Glucose, Whole Blood 131 mg/dL (60-115)
[2025-06-01 11:28] LABS: MANUAL DIFF FLAG NO
[2025-06-01 11:35] LABS: Hematocrit 39.3 % (37.0-47.0); Hemoglobin 13.1 g/dl (12.0-16.0); Imm Gran Abs Auto 0.06 X10*3/uL (0.00-0.03); Imm Gran Pct Auto 0.6 % (0.0-0.4); Lymphocytes Absolute Auto 1.1 X10*3/uL (1.2-4.9); Mean Corpuscular HGB Conc 33.3 g/dl (31.0-35.0); Mean Corpuscular Hemoglobin 30.1 pg (27.0-33.0); Mean Corpuscular Volume 90.3 fL (80.0-98.0); NRBC Abs Auto 0.000 X10*3/uL (0.0-0.012); NRBC Pct Auto 0.0 /100WBC (0.0-0.2); Platelet Count 192 X10*3/uL (160-400); Red Blood Count 4.35 X10*6/uL (4.20-5.50); White Blood Count 9.5 X10*3/uL (4.8-10.8)
[2025-06-01 11:44] LABS: COVID-19 Test Negative (Negative); IDNOW Serial# 55D5AD1C
[2025-06-01 11:45] LABS: IDNOW Serial# 58CA691E; Influenza B2 Negative (Negative)
[2025-06-01 11:47] LABS: Alanine Aminotransferase 123 U/L (0-31); Albumin Level 3.8 g/dL (3.5-5.0); Alkaline Phosphatase 180 U/L (39-117); Anion Gap 10 (12-20); Aspartate Amino Transferase 30 U/L (5-31); Blood Urea Nitrogen 9 mg/dL (9-16); Calcium 9.4 mg/dL (8.4-10.2); Carbon Dioxide 25 mmol/L (22-29); Chloride 103 mmol/L (96-108); Creatinine Clr Calc Pharmacy 85.9; Estimated Glomerular Filt Rate > 60; Magnesium 2.0 mg/dL (1.6-2.6); Potassium 3.7 mmol/L (3.3-5.1); Sodium 134 mmol/L (135-145); Total Protein 6.4 g/dL (6.5-8.0)
[2025-06-01 11:57] LABS: Troponin-I High Sensitivity < 2.7 ng/L (<3.5-17.0)
--- OUTSIDE RECORDS SUMMARY | 2025-06-01 12:34 | XMS_ITS | Patient Health Record ---
Author Organization [facility] mariam [place] Address [address] [place] [place] [address] Care Team Providers Care Asset Management Lead Name Role Phone Perry OROZCO, Naz Primary Care Provider Unavail able Stefan Carvalho Unavailable [phone] Allergies Allergen (clinical drug ingredient) Drug/Non Drug Allergy documented on EMR Reaction Allergy Type Onset Date Status acetaminophen / oxycodone Percocet palpatations Drug Allergy Active Reason For Referral No Information Medications Medication SIG (Take, Route, Frequency, Duration) Notes Start Date End Date Status [place] Active Ezetimibe 10 MG 1 tablet Orally Once a day; Duration: 30 day(s) Not-Taking Fluticasone Propionate 50 MCG/ACT 1 spray in each nostril Nasally Once a day; Duration: 30 day(s) Active Ammonium Lactate 12 % 1 application to affected area Externally to feet Twice a day; Duration: 30 days Active Citalopram Hydrobromide 30 MG 1 tablet Orally Once a day Active RisperDAL Not-Taking Eliquis Active Atorvastatin Calcium Not-Taking risperiDONE Active traZODone HCl 50 MG as directed Orally O nce a day Active Losartan Potassium A ctive Metoprolol Tartrate 50 MG 1 tablet with food Orally Twice a day; Duration: 30 day(s) Active Immunizations Vaccine Route Administration Date Status Comme nts Influenza Unknown 04/02/2024 Administered COVID-19 Pfizer BioNTech Vaccine Unknown 06/02/2021 Administered [...] User Modera te cigarette smoker (10-19 cigs/day) Tobacco use other than smoking: Question Answer Notes Are you an other tobacco user? No AUDIT-C (Standard) Question Answer Notes Did you have a drink contain ing alcohol in the past year? Yes How often did you have a dri nk containing alcohol in the past year? Monthly or less (1 point) How many drinks did you have on a typical day when you were drinking in the past year? 1 or 2 drinks (0 point) How often did you have six o r more drinks on one occasion in the past year? Never (0 point) Points 1 Interpretation Negative Problems Problem Type SNOMED Code ICD Code Onset Dates Problem Status W/U Status Risk Notes Problem Tinea unguium (696956546) Tinea unguium (B35.1) Active confirmed Vital Signs Blood pressure diastolic 75 mm Hg 04/13/2025 Height 5ft7in in 04/13/2025 Blood pressure systolic 120 mm Hg 04/13/2025 Weight 135 lbs 04/13/2025 BMI 21.14 kg/m2 04/13/2025 Procedures Procedure Date Ordered Date Performed Result Body Sit e 01308-MCETFIM NAIL, 6 OR MORE 04/13/2025 N/A Encounters Encounter Location Date Provider Diagnosis [facility] [address] [address] 04/13/2025 Stefan Carvalho Tinea unguium B35.1 ; Pain in right toe(s) M79.674 and Pain in left toe(s) M79.675 Assessments Encounter Date Diagnosis (ICD Code) Assessment Notes Treatment Notes Treatment Clinical Notes Section Notes 04/13/2025 Tinea unguium (ICD-10 - B35.1) 04/13/2025 Pain in right toe(s) (ICD-10 - M79.674) 04/13/2025 Pain in left toe(s) (ICD-10 - M79.675) Plan Of Treatment Pending Test Test Name Order Date 60100-OFAUZIA NAIL, 6 OR MORE 04/13/2025 [id number] NAIL, 1-5 05/04/2023 59458-BHQLIOD NAIL, 1-5 08/10/2023 73305-Rdzv Destruction, 1-14 08/03/2017 17504-Iyaa Destruction, -14 10/26/2017 09389-Wmje Destruction, 1-14 01/25/2018 97383-Fujmubvh Plate 04/25/2021 87088-Knbhhkoc Plate 10/10/2021 07055-Jdnukvxo Plate 01/06/2022 31086-Tqofssqj Plate 10/13/2022 43306-Vemsdijd Plate 04/14/2022 04540-Xtkdrusk Plate 07/07/2022 59910-Ssawcudl Plate 08/03/2017 91507-Kjiyzrai Plate Each Additional 12/2021 70355-Xzsiqtjm Plate Each Additional 70792-Ddkhwqha Plate Each Additional 36006-Czflsrlg Plate Each Additional 01/2022 20250-Klbileld Plate Each Additional 06/2022 70088-Gfojhaca Plate Each Additional Medical (General) History Medical History History ICD Code Anxiety Depression Chicken pox Hypertension Reflux Cholesterol DVT - Left thigh '23 Surgical History Surgery Date(Month/Year) Hospitalization History Reason Date(Month/Year) [facility] 2 night stay for observation for pos sible MS and elavated BP
--- OUTSIDE RECORDS SUMMARY | 2025-06-01 12:34 | XMS_ITS | Clinical Summary ---
Author Organization [employer] [facility] Address [address] [place] [address] Care Team Providers Care Anchorman Name Role Phone Unavailable Primary Care Provider Unavailabl e Encounters Date Type Department Care Team Description 04/04/2025 Population Health Risk Score [facility] Care [facility] (C3) Department [address] [address] Provider, Population Health Generic from Last 3 Months Social History Tobacco Use Types Packs/Day Years Used Date Smoking Tobacco: Never Assessed Comments Unknown Sex and Gender Information Value Date Recorded Sex Assigned at Not on file Legal Sex Female 11:16 AM EDT Gender Identity Not on file Sexual Orientation Not on file Plan of Treatment Health Maintenance Due Date Last Done Comments CT Colonography 1961 Colonoscopy 1961 Colorectal Cancer Screening 1961 Depression Screening 1961 FIT DNA/Cologuard 1961 FIT 1961 FOBT 1961 HIV Screening 1961 SDOH Screening 1961 Sigmoidoscopy 1961 Disability Screening 1961 Alcohol/Substance Use Screening 1973 Tobacco Screening 1973 Hepatitis C Screening 1979 DTaP/Tdap/Td Vaccines (1 - Tdap) 01/08/1980 Pap Smear 1982 Cervical Cancer Screening 1991 HPV/Cotest 1991 Mammogram 2001 Pneumococcal Vaccine: 50+ Ye ars (1 of 1 - PCV) 2011 Zoster Vaccines (1 of 2) 2011 COVID-19 Vaccine (1 - 2023-2 5 season) 2025 Influenza Vaccine (#1) 2025 RSV Patients and Pa tients Aged 60 years or older (1 - 1-dose 75+ series) 01/08/2036 HIB Vaccines Aged Out No longer eligi ble based on patient's age to complete this topic HPV Vaccines Aged Out No longer eligi ble based on patient's age to complete this topic Hepatitis A Vaccines Aged Out No long er eligible based on patient's age to complete this topic Hepatitis B Vaccines Aged Out No long er eligible based on patient's age to complete this topic IPV Vaccines Aged Out No longer eligi ble based on patient's age to complete this topic Meningococcal B Vaccine Aged Out No l onger eligible based on patient's age to complete this topic Meningococcal Vaccine Aged Out No alan idalmis eligible based on patient's age to complete this topic RSV under 20 months Aged Out No longe r eligible based on patient's age to complete this topic Rotavirus Vaccines Aged Out No longer eligible based on patient's age to complete this topic
[2025-06-01 12:42] VITALS: BP 134/75; PULSE 67; RESP 16; TEMP 36.7; O2SAT 97
[2025-06-01 12:44] VITALS: BP 134/75; PULSE 67; RESP 16; TEMP 36.7; O2SAT 97
== END 2025-06-01 12:44 | disposition home or self-care (01) ==
PROVIDERS: Physician Assistant Medical; Emergency Provider Emergency Medicine; PCP Nurse Practitioner Family
DX: R42 Dizziness and giddiness (principal); R07.9 Chest pain, unspecified; M25.512 Pain in left shoulder; Z86.718 Personal history of other venous thrombosis and embolism; Z79.01 Long term (current) use of anticoagulants; Z79.899 Other long term (current) drug therapy; Z03.818 Encounter for observation for suspected exposure to other biological agents ruled out
CPT/HCPCS: 36415; 71046; 80053; 82947; 83735; 84484; 85025; 87502; 87635; 93005; 96360; 96361; 99284; 99285

== ENCOUNTER → 2025-06-01 10:46 | Outpatient (BNV) | payer MEDICAID, SELFPAY | PROVIDERS: Emergency Provider Emergency Medicine; PCP Nurse Practitioner Family; Visit Provider Internal Medicine | DX: I45.10 Unspecified right bundle-branch block (principal) | CPT/HCPCS: 93010 ==

== ENCOUNTER → 2025-06-01 10:47 | Outpatient (BNV) | payer MEDICAID, SELFPAY | PROVIDERS: Emergency Provider Emergency Medicine; PCP Nurse Practitioner Family; Visit Provider Radiology Diagnostic Radiology | DX: J44.9 Chronic obstructive pulmonary disease, unspecified (principal) | CPT/HCPCS: 71046 ==